=== PATIENT | male | born 1980 ===

== ENCOUNTER 2021-01-04 10:18 | Outpatient (REF) | payer BC, MEDICAID, SELFPAY | END 2021-01-04 10:19 | disposition home or self-care (01) | LOC: HO.LAB 10:18 | PROVIDERS: Visit Provider Internal Medicine | DX: Z20.822 Contact with and (suspected) exposure to COVID-19 (principal) | CPT/HCPCS: C9803; U0003; U0005 ==

== ENCOUNTER 2021-03-06 14:49 | Outpatient (REF) | payer BC, MEDICAID, SELFPAY ==
--- NOTE | ~2021-03-06 | XR_ITS ---
EXAMINATION: XR ANKLE, LEFT CLINICAL INFORMATION: Left ankle pain. COMPARISON: None TECHNIQUE: AP, lateral, and mortise views of the left ankle. FINDINGS: There is a Stieda process on the posterior talus. A well-corticated ossicle is seen between the tip of the lateral malleolus and body of the talus consistent with old injury. The bones and soft tissues are otherwise normal. No fracture. Alignment is anatomic. Joint spaces are maintained. No joint effusion. XR/XR ankle LT 2V IMPRESSION: Stieda process posterior talus. Well-corticated bone fragment between the lateral malleolus and body of the talus consistent with old injury. No acute abnormality.
--- NOTE | ~2021-03-06 | XR_ITS ---
EXAMINATION: XR LUMBOSACRAL SPINE CLINICAL INFORMATION: Dorsalis. COMPARISON: 04/16/17. CT scan of the abdomen and pelvis dated 12/12/18. TECHNIQUE: Three views of the lumbosacral spine. FINDINGS: There is stable appearance of bilateral spondylolysis at L5 with grade 1 spondylolisthesis. There is mild narrowing of the disc space at L5-S1 increased from priors. No other abnormality. Disc spaces are otherwise well-maintained. Vertebral body body heights are maintained. The paravertebral soft tissues are normal. 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 Mild disc space narrowing at L5-S1 more pronounced than seen on priors.
== END 2021-03-06 14:50 | disposition home or self-care (01) ==
LOC: HO.XRAY 14:49
PROVIDERS: PCP Internal Medicine; Visit Provider Internal Medicine
DX: M25.572 Pain in left ankle and joints of left foot (principal); M54.9 Dorsalgia, unspecified
CPT/HCPCS: 72100; 73600

== ENCOUNTER → 2021-04-11 14:36 | Outpatient (BNVA) | payer BC, MEDICAID, SELFPAY | PROVIDERS: PCP Internal Medicine; Referring Provider Internal Medicine; Visit Provider Surgery ==

== ENCOUNTER 2021-05-30 14:18 | Outpatient (REF) | payer OTHER, SELFPAY ==
[2021-05-31 04:32] LABS: Syphilis Screen Nonreactive (Nonreactive)
[2021-05-31 04:57] LABS: HBS Num1 4.11 mIU/mL (0-7.99); HBsAGNum1 0.23 S/CO (0.00-0.99); HIV AB/AG Nonreactive (Nonreactive); HIV Num 1 0.05 S/CO (0.00-0.99); Hepatitis B Surface Antigen Negative (Negative); ~HepC Num1 0.12 S/CO (0.00-0.79); ~Hepatitis B Surface Antibody NONREACTIVE (Nonreactive); ~Hepatitis C Antibody Nonreactive (Nonreactive)
[2021-05-31 05:32] LABS: HBc Num1 10.48 S/CO (0.00-0.79); HBc Num2 9.61 S/CO; Hepatitis B Core Antibody Reactive (Nonreactive)
[2021-06-01 17:11] LABS: Hepatitis B Core Antibody IgM NON-REACTIVE (NON-REACTIVE)
== END 2021-05-30 14:19 | disposition home or self-care (01) ==
LOC: HO.LAB 14:18
PROVIDERS: PCP Internal Medicine; Visit Provider Internal Medicine
DX: Z01.84 Encounter for antibody response examination (principal); Z11.4 Encounter for screening for human immunodeficiency virus [HIV]; Z11.3 Encounter for screening for infections with a predominantly sexual mode of transmission
CPT/HCPCS: 36415; 86704; 86705; 86706; 86780; 86803; 87340; 87389

== ENCOUNTER 2021-07-18 14:21 | Outpatient (REF) | payer OTHER, SELFPAY ==
[2021-07-18 15:01] LABS: Anion Gap 12 (12-20); Blood Urea Nitrogen 21 mg/dL (9-16); Calcium 9.8 mg/dL (8.4-10.2); Carbon Dioxide 30 mmol/L (22-29); Chloride 104 mmol/L (96-108); Estimated Glomerular Filt Rate > 60; Glucose Random 103 mg/dL (60-115); Potassium 4.5 mmol/L (3.3-5.1); Sodium 141 mmol/L (135-145)
[2021-07-18 15:25] LABS: TSH reflex Free T4 0.46 uIU/mL (0.32-4.0)
== END 2021-07-18 14:22 | disposition home or self-care (01) ==
LOC: HO.LAB 14:21
PROVIDERS: PCP Internal Medicine; Visit Provider Nurse Practitioner Family
DX: F32.1 Major depressive disorder, single episode, moderate (principal); F41.9 Anxiety disorder, unspecified
CPT/HCPCS: 36415; 80048; 84443

== ENCOUNTER 2023-01-09 13:51 | Outpatient (REF) | payer OTHER, SELFPAY ==
[2023-01-09 14:08] LABS: MANUAL DIFF FLAG NO
[2023-01-09 14:44] LABS: Basophils Absolute Auto 0.1 X10*3/uL (0.0-0.2); Basophils Percent Auto 0.8 % (0-2); Eosinophils Absolute Auto 0.3 X10*3/uL (0.0-0.4); Eosinophils Percent Auto 4.8 % (0-4); Hematocrit 42.8 % (42.0-52.0); Hemoglobin 15.1 g/dl (14.0-18.0); Imm Gran Abs Auto 0.02 X10*3/uL (0.00-0.03); Imm Gran Pct Auto 0.3 % (0.0-0.4); Lymphocytes Absolute Auto 1.5 X10*3/uL (1.2-4.9); Lymphocytes Percent Auto 24.6 % (20-40); Mean Corpuscular HGB Conc 35.3 g/dl (31.0-36.0); Mean Corpuscular Hemoglobin 30.9 pg (27.0-33.0); Mean Corpuscular Volume 87.7 fL (80.0-98.0); Mean Platelet Volume 10.5 fL (9.4-12.4); Monocytes Absolute Auto 0.4 X10*3/uL (0.1-1.2); Monocytes Percent Auto 7.3 % (2-11); Neutrophils Absolute Auto 3.7 x10*3/uL (2.0-8.3); Neutrophils Percent Auto 62.2 % (45-73); Platelet Count 244 X10*3/uL (160-400); Red Blood Count 4.88 X10*6/uL (4.60-5.80); Red Cell Distribution Width 11.9 % (11.0-16.0)
== END 2023-01-09 13:52 | disposition home or self-care (01) ==
LOC: HO.LAB 13:51
PROVIDERS: PCP Internal Medicine; Visit Provider Internal Medicine
DX: K92.1 Melena (principal)
CPT/HCPCS: 36415; 85025

== ENCOUNTER 2023-01-30 09:39 | Outpatient (REF) | payer OTHER, SELFPAY ==
--- NOTE | ~2023-01-30 | US_ITS ---
EXAMINATION: US ABDOMEN LIMITED CLINICAL INFORMATION: Left upper quadrant abdominal tenderness. COMPARISON: CT abdomen and pelvis without contrast dated 12/12/2018. Ultrasound abdomen limited dated 11/26/2017. TECHNIQUE: Real-time imaging of the left upper and lower quadrant abdominal viscera. FINDINGS: The spleen measures 13.8 cm in length but does not appear bulky. The left kidney appears normal. The pancreas appears normal where visualized. Multiple subcutaneous echogenic structures are seen in the left lower quadrant, the largest measuring 2.0 cm. These are slightly echogenic relative to subcutaneous fat. These correspond to the small nodular densities seen on the prior CT scan and may relate to medication injection sites and fat necrosis. US/US abdomen limited IMPRESSION: Multiple echogenic structures seen in the subcutaneous abdominal wall in the left lower quadrant measuring up to 2.0 cm. These likely reflect injection site granulomas/fat necrosis. Recommend clinical correlation with physical exam and history. No discrete abnormality in the left upper corner and to correlate with abdominal tenderness.
== END 2023-01-30 09:40 | disposition home or self-care (01) ==
LOC: HO.US 09:39
PROVIDERS: PCP Internal Medicine; Visit Provider Nurse Practitioner Family
DX: R10.812 Left upper quadrant abdominal tenderness (principal)
CPT/HCPCS: 76705

== ENCOUNTER → 2023-02-06 12:27 | Outpatient (BNVA) | payer OTHER, SELFPAY | PROVIDERS: PCP Internal Medicine; Visit Provider Internal Medicine | DX: R10.812 Left upper quadrant abdominal tenderness (principal); K62.5 Hemorrhage of anus and rectum; Z79.1 Long term (current) use of non-steroidal anti-inflammatories (NSAID) | CPT/HCPCS: 99202 ==

== ENCOUNTER 2023-03-20 14:53 | Outpatient (REF) | payer OTHER, SELFPAY ==
[2023-03-20 18:03] LABS: CT PCR NOT DETECTED (Not Detect.); NG PCR NOT DETECTED (Not Detect.)
[2023-03-23 03:48] LABS: Syphilis Screen Nonreactive (Nonreactive)
[2023-03-23 03:54] LABS: HBsAGNum1 0.37 S/CO (0.00-0.99); HIV AB/AG Nonreactive (Nonreactive); HIV Num 1 0.07 S/CO (0.00-0.99); Hepatitis B Surface Antigen Negative (Negative); ~Hepatitis A Antibody IgM Nonreactive (Nonreactive); ~Hepatitis B Surface Antibody NONREACTIVE (Nonreactive); ~Hepatitis C Antibody Nonreactive (Nonreactive)
[2023-03-23 05:14] LABS: HBc Num2 4.47 S/CO; HBc Num3 7.38 S/CO; Hepatitis B Core Antibody Reactive (Nonreactive)
[2023-03-28 10:52] LABS: Hepatitis B Core Antibody IgM NON-REACTIVE
== END 2023-03-20 14:54 | disposition home or self-care (01) ==
LOC: HO.LAB 14:53
PROVIDERS: PCP Internal Medicine; Visit Provider Internal Medicine
DX: Z11.3 Encounter for screening for infections with a predominantly sexual mode of transmission (principal)
CPT/HCPCS: 0353U; 86704; 86705; 86706; 86709; 86780; 86803; 87340; 87389

== ENCOUNTER 2023-04-21 17:18 | Outpatient (AMB) | payer OTHER, SELFPAY ==
[2023-04-21 17:23] VITALS: BP 118/72; BMI 37.4
--- NOTE | 2023-04-21 17:23 | A.OFFPC_ITS ---
Vital Signs 04/21/23 17:23 Height 5 ft 5 in Weight 225 lb BMI 37.4 BP 118/72 Blood Pressure Location Lt brachial Position Sitting Intake Visit Reasons: back pain Intake Note: Patient here for a follow up back pain, left foot pain, lump on left side between neck and shoulder blade Ink Blender Required: No Accompanied by: Self / Same As Patient Allergies No Known Allergies [No Known Allergies*] Allergy (Verified 04/21/23 17:33) Medication List - Last Reconciled 04/21/23 by Lavonne Terry MD buspirone 7.5 mg PO BID Tobacco use date assessed: 01/16/23 Dental Screening Dental Screen Date: 04/21/23 Did you have a dental visit in the last 12 months?: Yes Did you have a dental problem in the last 6 months where you did not have access to dental care?: No Was dental information given to patient?: Patient has dentist HPI HPI Comments History of Present Illness Details This is a 42-year-old male that complains of bilateral shoulder pain with full active range of motion, left supraclavicular mass that has been present for about a year. No fever or night sweats. Also has chronic low back pain and left ankle pain. Will be referred to pain management. [facility] Medical History Back pain Left ankle pain Screen for STD (sexually transmitted disease) Surgical History History of appendectomy History of excision of mass History of left inguinal hernia repair (02/03/19) History of nasal septoplasty History of open reduction and internal fixation (ORIF) procedure Family History Mother No problems noted. Father No problems noted. 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 Prince Cornell, Katie May, Valdo Barrow and colleagues, with an educational den[place] from [employer]. Review of Systems Const All systems reviewed & are unremarkable except as noted in HPI and below Eyes Reports no additional complaints, Denies change in vision and Denies other visual disturbances Card Denies chest pain at rest, Denies chest pain with activity, Denies edema, Denies irregular heart rhythm, Denies claudication, Denies dyspnea, Denies dyspnea on exertion, Denies orthopnea, Denies paroxysmal nocturnal dyspnea and Denies slow heart rate Resp Denies cough, Denies dyspnea and Denies dyspnea on exertion GI Denies abdominal pain, Denies change in bowel habits, Denies excessive flatus, Denies nausea and Denies vomiting Denies urinary hesitancy, Denies urinary incontinence and Denies urinary urgency Musc Denies abnormal gait, Reports back pain, Denies atrophy, Denies deformity and Denies limited range of motion Skin/Breast Denies bleeding lesions, Denies changing lesions and Denies rash Neuro Denies abnormal gait and Denies lack of coordination Physical exam (Primary Care) Vital Signs: Last Vital Signs BP 118/72 04/21/23 17:23 BMI result Body Mass Index 37.4 Tobacco/Smoking Status: Tobacco use Status Tobacco use date assessed 01/16/23 04/21/23 17:31 Patient Tobacco Use Status Former Tobacco user (two 04/21/23 17:31 months ago) Tobacco use type Cigarette 04/21/23 17:31 e-Cigarette/Vaping Use Never Used 04/21/23 17:31 Thrive Assessment: Date of Thrive Assessment Date Thrive assessed 01/16/23 04/21/23 17:31 Eyes General: appearance normal, both eyes and all related structures Eyelids: Yes eyelids normal Conjunctivae: conjunctivae normal Neck Neck: Yes normal visual inspection and Yes supple Resp Effort & Inspection: normal respiratory effort Auscultation: clear to auscultation bilaterally Cardio Jugular venous distension: no JVD Rate: regular rate Rhythm: regular rhythm Heart sounds: S1 normal heart sound present and S2 normal heart sound present Extrem General: Yes full ROM Assessment and Plan Assessment & Plan (1) Polyarthralgia: Code(s): M25.50 - Pain in unspecified joint Plan: XRs ordered. Referred to pain management Orders: Orders XR ankle LT 2V Today M25.572 - Pain in left ankle and joints of left foot XR clavicle LT Today M89.8X1 - Other specified disorders of bone, shoulder XR shoulder LT 1V Today M25.512 - Pain in left shoulder XR shoulder RT min 2V Today M25.511 - Pain in right shoulder US soft tiss head and/or neck Today R22.1 - Localized swelling, mass and lump, neck Referrals Pain Management Referral M25.511 - Pain in right shoulder, M25.512 - Pain in left shoulder, M25.571 - Pain in right ankle and joints of right foot, M25.572 - Pain in left ankle and joints of left foot, M89.8X1 - Other specified disorders of bone, shoulder Coding Level of Care Code Est Pt Level 3 (77257) Diagnoses Polyarthralgia M25.50 Time Spent (min) 18
== END 2023-04-21 17:45 | disposition home or self-care (01) ==
PROVIDERS: PCP Internal Medicine; Visit Provider Internal Medicine
DX: M25.50 Pain in unspecified joint (principal)
CPT/HCPCS: 99213

== ENCOUNTER 2023-04-24 15:11 | Outpatient (REF) | payer OTHER, SELFPAY ==
--- NOTE | ~2023-04-24 | XR_ITS ---
EXAMINATION: XR ANKLE, LEFT CLINICAL INFORMATION: Left ankle pain. COMPARISON: None available. TECHNIQUE: AP, lateral, and mortise views of the left ankle. FINDINGS: No acute fracture identified. Alignment is anatomic. No erosions. Joint spaces appear maintained. Soft tissues appear unremarkable. XR/XR ankle LT 2V IMPRESSION: Normal plain film examination of the left ankle.
--- NOTE | ~2023-04-24 | XR_ITS ---
EXAMINATION: XR CLAVICLE, LEFT CLINICAL INFORMATION: Pain. COMPARISON: None available. TECHNIQUE: Two views of the left clavicle. FINDINGS: The clavicle appears intact. The bones and soft tissues appear unremarkable. No fracture identified. Acromioclavicular joint alignment is anatomic. XR/XR clavicle LT IMPRESSION: Normal plain film examination of the left clavicle.
--- NOTE | ~2023-04-24 | XR_ITS ---
EXAMINATION: XR SHOULDER, RIGHT CLINICAL INFORMATION: Right shoulder pain. COMPARISON: None available. TECHNIQUE: AP external rotation, Grashey, scapular Y, and axillary views of the right shoulder. FINDINGS: The bones and soft tissues appear unremarkable. No fracture appreciated. Glenohumeral and acromioclavicular alignment is anatomic with normal joint space. No abnormal soft tissue calcification identified. XR/XR shoulder RT min 2V IMPRESSION: Normal plain film examination of the right shoulder.
--- NOTE | ~2023-04-24 | XR_ITS ---
EXAMINATION: XR SHOULDER, LEFT CLINICAL INFORMATION: Left shoulder pain. COMPARISON: None available. TECHNIQUE: AP external rotation, Grashey, scapular Y, and axillary views of the left shoulder. FINDINGS: The bones and soft tissues appear unremarkable. No fracture appreciated. Glenohumeral and acromioclavicular alignment is anatomic with normal joint space. No abnormal soft tissue calcification identified. XR/XR shoulder LT min 2V IMPRESSION: Normal plain film examination of the left shoulder.
== END 2023-04-24 15:12 | disposition home or self-care (01) ==
LOC: HO.XRAY 15:11
PROVIDERS: PCP Internal Medicine; Visit Provider Internal Medicine
DX: M89.8X1 Other specified disorders of bone, shoulder (principal); M25.572 Pain in left ankle and joints of left foot; M25.511 Pain in right shoulder; M25.512 Pain in left shoulder
CPT/HCPCS: 73000; 73030; 73600

== ENCOUNTER 2023-05-29 14:55 | Outpatient (AMB) | payer OTHER, SELFPAY ==
--- NOTE | 2023-05-29 15:07 | MHC.OFFVIS ---
Intake Vital Signs 05/29/23 15:19 Height 5 ft 5 in Weight 224 lb BMI 37.3 BP 124/56 L Blood Pressure Location Lt brachial Position Sitting Respiration 18 Pulse 72 Pulse Source Pulse Oximeter Pulse Oximetry (%) 96 Oxygen Delivery Method Room Air Intake Visit Reasons: Pain in both shoulders Allergies No Known Allergies [No Known Allergies*] Allergy (Verified 05/29/23 15:00) HPI HPI Comments History of Present Illness Details Zeyad is a very pleasant 42-year-old male who presents to the office today for evaluation and management of his chronic left shoulder pain. Patient reports he has been suffering with left shoulder pain for many years. He has tried ibuprofen with minimal relief. He has never been to physical therapy for this pain. Patient describes pain in left upper back and left shoulder. Pain worse with movement and palpation. Patient denies radiation of the pain down the arm or up into the head. Pain is constant, rated today as a 4/10. Patient used to be prescribed tramadol from his primary care doctor but that was discontinued approximately 4 months ago after he was started on medication for depression due to increased risk for serotonin syndrome with the combination. Since then he has not been prescribed medication for his chronic pains. He also complains of left ankle pain that he has a pending appointment with Orthopedics for evaluation and management. In terms of muscle damage continued described as aching, spasming, hot, burning, stabbing, sharp, shooting, throbbing and cramping. Patient reports that the pain is negatively impacting his general activity. Patient denies current use of alcohol, tobacco or illicit substances. Patient denies implantable devices, pacemaker or defibrillator. [facility] Medical History Back pain Left ankle pain Screen for STD (sexually transmitted disease) Surgical History History of appendectomy History of excision of mass History of left inguinal hernia repair (02/03/19) History of nasal septoplasty History of open reduction and internal fixation (ORIF) procedure Family History Mother No problems noted. Father No problems noted. 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 Answers questions appropriately. Fully engaged in examination. Skin: warm, dry, intact HEENT: Normocephalic. Hearing intact. Cardiac: External chest normal in appearance. Respiratory: No cough, audible wheezing or stridor. Abdomen: without gross distension. MS: Left shoulder: full active and passive ROM. minimally tender over left proximal biceps tendon Moderate tenderness throughout upper/middle trapezius that reproduces patient's current pain Neurological: Oriented to person, place, time and situation. Thought process intact. No gait abnormalities appreciated. Psychiatric: Appropriate mood and affect. Good judgment and insight. Results Reviewed Results Reviewed: 04/24/2023 XR/XR shoulder LT min 2V AP external rotation, Grashey, scapular Y, and axillary views of the left shoulder. FINDINGS: The bones and soft tissues appear unremarkable. No fracture appreciated. Glenohumeral and acromioclavicular alignment is anatomic with normal joint space. No abnormal soft tissue calcification identified. IMPRESSION: Normal plain film examination of the left shoulder. Assessment & Plan Assessment & Plan (1) Left shoulder pain: Code(s): M25.512 - Pain in left shoulder Qualifiers: Chronicity: chronic Qualified Code(s): M25.512 - Pain in left shoulder; G89.29 - Other chronic pain (2) Trapezius muscle strain: Code(s): S46.819A - Strain of other muscles, fascia and tendons at shoulder and upper arm level, unspecified arm, initial encounter Qualifiers: Encounter type: initial encounter Laterality: left Qualified Code(s): S46.812A - Strain of other muscles, fascia and tendons at shoulder and upper arm level, left arm, initial encounter (3) Myofascial muscle pain: Code(s): M79.18 - Myalgia, other site Plan Zeyad is a very pleasant 42 year old male who presented to the office today for evaluation and management of his chronic left shoulder/upper back pain. History, physical exam and provocative testing most consistent with left trapezius muscle strain and myofascial upper back pain. Order for PT eval and treat placed. C/W Ibuprofen as needed Will try baclofen 5mg po TID as needed for spasm. patient instructed on use. 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 Patient will follow up in the office after PT. Discussed options for treatment including diagnostic interventional testing,steroid injections, peripheral nerve stimulation with Sprint, RFA and more permanent neuromodulation. If patient's pain unchanged with muscle relaxer and PT will plan for ultrasound guided diagnostic left suprascapular nerve block with local anesthetic. All questions and concerns have been answered and patient agrees with the plan. Follow up after PT, sooner if needed. Orders: Orders PT Evaluation and Treatment Today M25.512 - Pain in left shoulder, S46.819A - Strain of other muscles, fascia and tendons at shoulder and upper arm level, unspecified arm, initial encounter Medications: New baclofen 5 mg PO TID PRN 60 tabs 0RF muscle spasm Coding Level of Care Code New Pt Level 4 (18454) Diagnoses Chronic left shoulder pain M25.512; G89.29 Chronicity: chronic Strain of left trapezius muscle, initial encounter S46.812A Encounter type: initial encounter Laterality: left Myofascial muscle pain M79.18
[2023-05-29 15:19] VITALS: BP 124/56; PULSE 72; RESP 18; O2SAT 96; BMI 37.3
== END 2023-05-29 15:32 | disposition home or self-care (01) ==
PROVIDERS: PCP Internal Medicine; Visit Provider Registered Nurse Emergency
DX: G89.29 Other chronic pain (principal); M25.512 Pain in left shoulder; S46.812A Strain of other muscles, fascia and tendons at shoulder and upper arm level, left arm, initial encounter; M79.18 Myalgia, other site
CPT/HCPCS: 99204

== ENCOUNTER → 2023-05-29 14:55 | Outpatient (BNVA) | payer OTHER, SELFPAY | PROVIDERS: PCP Internal Medicine; Visit Provider Registered Nurse Emergency ==

== ENCOUNTER 2023-06-12 11:00 | Outpatient (RCR) | payer OTHER, SELFPAY ==
--- NOTE | 2023-04-10 16:28 | MHC.PT.EP ---
[facility] [place] Office [place] Office [place] Office [address] [phone] F: [phone] F: [phone] F: [phone] F: [phone] Physical Therapy Plan of Care Date of Evaluation: Date of Surgery: NA Diagnosis: DORSALGIA. Pt REPORTS BACK NOT BOTHERING HIM. L ANKLE IS Assessment: Pt IS 42 YO M REFERRED TO PT FROM [facility] WITH DORSALGIA. Pt REPORTS HAVING L ANKLE ISSUES. HE REPORTS HIS BACK IS HURTING BUT IS HAVING MORE ISSUES L ANKLE. REPORTS 3 YR HX OF L ANKLE ISSUES. REPORTS INSIDIOUS ONSET. REPORTS SOMETIMES L ANKLE GETS SWOLLEN. PRESENTS TO PT WITH C/O L ANKLE PAIN BUT NOT LBP. HAS +XRAY REPORT FOR EXTENDED LAT TUBERCLE OF THE POST PROCESS OF THE TALUS. SLIGHT DECREASED END RANGES L ANKLE ROM. 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 (NO TREATMENT PERFORMED TODAY) Frequency and Duration: The patient will be seen 1X/WK X 4 WKS Short Term Goals: 1. INCREASED AWARENESS ANKLE CARE 2. I HEP WITH DC EX PLAN 3. 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 DECREASED ANKLE SWELLING REPORTED 2. DECREASED ANKLE PAIN AT LEAST 50% WITH ADLS Treatment Plan: Modalities to reduce pain, spasms and effusion. Manual therapy to restore motion and function. Therapeutic exercise to improve strength and flexibility. Neuromuscular re-education for posture and balance. Therapeutic activities to return to functional activities of daily living. Electronically signed by: ANAHY SOLOMON PT Please sign and return to therapist. Thank you for your referral.
--- NOTE | 2023-06-19 12:27 | MHC.PT.DC ---
[facility] [place] Office [place] Office [place] Office [address] [place] [address] [phone] F: [phone] F: [phone] F: [phone] F: [phone] Physical Therapy Discharge Report Diagnosis: L lateral ankle pain Date of Surgery: NA Date of Evaluation: 04/10/23 Date of Discharge: 06/19/23 Treatments to Date: 7 Cancellations to Date: No Shows to Date: Discharge Status: Achieved Goals Improved Function Independent with HEP Discharge Summary: HAS MET PT GOALS, HAS HOME PROG Electronically signed by: ANAHY SOLOMON PT Please sign and return to therapist. Thank you for your referral.
== END 2023-06-19 13:03 | disposition home or self-care (01) ==
LOC: HO.PT 11:00
PROVIDERS: PCP Internal Medicine; Visit Provider Nurse Practitioner Family
DX: M54.6 Pain in thoracic spine (principal); M25.571 Pain in right ankle and joints of right foot; M25.572 Pain in left ankle and joints of left foot
CPT/HCPCS: 97110; 97140; 97161; 97530; 97535

== ENCOUNTER 2023-08-27 10:30 | Outpatient (AMB) | payer SELFPAY ==
--- NOTE | 2023-08-27 10:51 | A.OFFVIS_ITS ---
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 No injury he can recall. Describes his injury. States his pain increase with prolong walking. Patient has tried P.T, massages and braces with no improvement. States he was told by his PCP this o.A. Allergies No Known Allergies [No Known Allergies*] Allergy (Verified 08/27/23 10:55) Medication List - Last Reconciled 08/27/23 by Marcela Ly MD baclofen 5 mg PO TID PRN ibuprofen 600 mg PO Q8H PRN 30 days HPI HPI Comments History of Present Illness Details 10 years ago, while still in [place], denies inciting injuries. Pain on lateral malleoli. Swells sometimes. Denies numbness on toes. ROS - other joint pain - left shoulder pain, shows me a left sided lump on left upper chest. No back pain. No hand pain. No eye symptoms. Treatment done so far: has tried tape, brace in the past Ibuprofen PT - last 2 months ago PFSH Medical History Back pain Left ankle pain Screen for STD (sexually transmitted disease) Surgical History History of appendectomy History of excision of mass History of left inguinal hernia repair (02/03/19) History of nasal septoplasty History of open reduction and internal fixation (ORIF) procedure Family History Mother No problems noted. Father No problems noted. 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 Patient was appropriately conversant and oriented. Good historian. MSK: No point tendernerss over left lateral malleolus but says the pain is deep in there. No tenderness over achilles or plantar fascia. No ankle instability. No leg swelling. No foot drop. Neurological: Neurologic examination of the upper and lower extremities was nonfocal with intact sensation, muscle stretch reflexes and without focal motor deficits . Marie?s negative bilaterally. Babinski was down going bilaterally. Clonus was negative. Gait is non-antalgic without loss of balance. Patient was able to perform heel walk and toe walk. Results Reviewed Results Reviewed: Date of Service: 04/24/23 Procedure(s): XR ankle LT 2V Accession Number(s): [id number] cc: Lavonne Farr MD~ EXAMINATION: XR ANKLE, LEFT CLINICAL INFORMATION: Left ankle pain.? COMPARISON: None available.? TECHNIQUE: AP, lateral, and mortise views of the left ankle. FINDINGS: No acute fracture identified. Alignment is anatomic. No erosions. Joint spaces appear maintained. Soft tissues appear unremarkable.? XR/XR ankle LT 2V IMPRESSION: Normal plain film examination of the left ankle. Date of Service: 03/06/21 Procedure(s): XR lumbar spine 2-3V Accession Number(s): [id number] cc: Lavonne Farr MD~ EXAMINATION: XR LUMBOSACRAL SPINE CLINICAL INFORMATION: Dorsalis. COMPARISON: 04/16/17. CT scan of the abdomen and pelvis dated 12/12/18. TECHNIQUE: Three views of the lumbosacral spine. FINDINGS: There is stable appearance of bilateral spondylolysis at L5 with grade 1 spondylolisthesis. There is mild narrowing of the disc space at L5-S1 increased from priors. No other abnormality. Disc spaces are otherwise well-maintained. Vertebral body body heights are maintained. The paravertebral soft tissues are normal. 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 Mild disc space narrowing at L5-S1 more pronounced than seen on priors. Date of Service: 07/29/23 Procedure(s): XR shoulder RT min 2V Accession Number(s): [id number] cc: Stephany Monroe PA-C~ I reviewed records from the following: Pain management-follows for left shoulder pain PCP-seen for joint pain Assessment & Plan Assessment & Plan (1) Left ankle sprain: Code(s): S93.402A - Sprain of unspecified ligament of left ankle, initial encounter Qualifiers: Encounter type: initial encounter Involved ligament of ankle: anterior talofibular ligament Qualified Code(s): S93.492A - Sprain of other ligament of left ankle, initial encounter (2) Lipoma of left shoulder: Code(s): D17.22 - Benign lipomatous neoplasm of skin and subcutaneous tissue of left arm Plan Suspect chronic ankle sprain. Patient had undergone adequate conservative management including [PT] without improvement of condition. It would be reasonable to obtain further imaging such as MRI. An MRI would help rule out any serious condition, guide treatment and assess prognosis for recovery. In the meantime we will give him a night splint. Instructions given. On a separate issue, noticed lipoma on left upper chest near clavicle. On review of EMR, he has seen Dr. Grande for diffuse lipoma back in 2020. We will refer back to Dr. Grande/general surgery. Assessment and plan discussed with patient, and patient was agreeable. All questions were answered thoroughly. Follow-up after MRI of left ankle Marcela Ly MD, AKIRA Board Certified, [place] [employer] and Rehabilitation (ABPMR) Board Certified, [place] [employer] Electro[employer] (ABEM) Orders: Orders MR ankle LT wo con Today S93.402A - Sprain of unspecified ligament of left ankle, initial encounter Referrals General Surgery Referral D17.22 - Benign lipomatous neoplasm of skin and sub cutaneous tissue of left arm Coding Level of Care Code New Pt Level 4 (05852) Diagnoses Sprain of anterior talofibular ligament of left ankle, initial encounter S93.492A Encounter type: initial encounter Involved ligament of ankle: anterior talofibular ligament Lipoma of left shoulder D17.22
[2023-08-27 10:52] VITALS: BMI 37.3
== END 2023-08-27 11:12 | disposition home or self-care (01) ==
PROVIDERS: PCP Internal Medicine; Visit Provider Physical Medicine & Rehabilitation
DX: S93.492A Sprain of other ligament of left ankle, initial encounter (principal); D17.22 Benign lipomatous neoplasm of skin and subcutaneous tissue of left arm
CPT/HCPCS: 99204

== ENCOUNTER → 2023-08-27 10:30 | Outpatient (BNVA) | payer OTHER, SELFPAY | PROVIDERS: PCP Internal Medicine; Visit Provider Physical Medicine & Rehabilitation ==

== ENCOUNTER → 2023-09-18 09:49 | Outpatient (BNVA) | payer SELFPAY | PROVIDERS: PCP Internal Medicine; Visit Provider Surgery ==

== ENCOUNTER 2023-12-29 16:03 | Outpatient (AMB) | payer OTHER, SELFPAY ==
--- NOTE | 2023-12-29 16:05 | A.OFFPC_ITS ---
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 by: Self / Same As Patient Allergies No Known Allergies [No Known Allergies*] Allergy (Verified 12/29/23 16:24) Medication List - Last Reconciled 12/29/23 by Lavonne Terry MD ibuprofen 600 mg PO Q8H PRN 30 days pantoprazole 40 mg PO DAILY Tobacco use date assessed: 12/29/23 Dental Screening Dental Screen Date: 12/29/23 Did you have a dental visit in the last 12 months?: No Did you have a dental problem in the last 6 months where you did not have access to dental care?: No Was dental information given to patient?: Patient has dentist HPI HPI Comments History of Present Illness Details This is a 43-year-old male that comes for his physical exam. Denies any chest pain or shortness of breath. No fever or cough. [facility] Medical History (Updated 12/29/23 @ 19:42 by Lavonne Terry MD) History of substance abuse Moderate depressive disorder Screen for STD (sexually transmitted disease) Left ankle pain Back pain Surgical History History of left inguinal hernia repair (02/03/19) History of nasal septoplasty History of excision of mass History of appendectomy History of open reduction and internal fixation (ORIF) procedure Family History (Updated 12/29/23 @ 16:33 by Lavonne Terry MD) Mother No problems noted. Father Prostate cancer Paternal Grandmother Pancreatic cancer Maternal Grandmother Breast cancer Social History Housing: Apartment Alcohol intake: former Patient Tobacco Use Status: Former Tobacco user Quit Date: two months Tobacco use type: Cigarette Cigarettes Per Day: 5 Years Smoked: 10 year e-Cigarette/Vaping Use: Never Used Second Hand Smoke Exposure: Yes service: No Current occupational status: employed Current occupational exposures/hazards: No Cognitive needs: No Hearing needs: No Vision needs: No Questionnaire PHQ-9 Over the last 2 weeks, how often have you been bothered by any of the following problems? 1. Little interest or pleasure in doing things: not at all 2. Feeling down, depressed, or hopeless: not at all 3. Trouble falling or staying asleep, or sleeping too much: not at all 4. Feeling tired or having little energy: not at all 5. Poor appetite or overeating: not at all 6. Feeling bad about yourself - or that you are a failure or have let yourself or your family down: not at all 7. Trouble concentrating on things, such as reading the newspaper or watching television: not at all 8. Moving or speaking so slowly that other people could have noticed. Or the opposite - being so fidgety or restless that you have been moving around a lot more than usual: not at all 9. Thoughts that you would be better off or of hurting yourself in some way: not at all Total score: 0 Depression Screening Interpretation: Negative Depression Screening Done: Yes 19925 - PHQ-9 Billing: Yes Source: Developed by Drs. Prince Cornell, Katie May, Valdo Barrow and colleagues, with an educational denver from [employer] Thrive Questionnaire Date Thrive assessed: 12/29/23 I am a: Patient What is your living situation today?: I have a steady place to live Within the past 12 months, did the food you bought not last and you didn't have the money to get more?: Never true Within the past 12 months, did you worry whether your food would run out before you got money to buy more?: Never true Do you have trouble paying for medicines?: No Do you have trouble getting transportation to medical appointments?: No Do you have trouble paying your heating and electricity bill?: No Do you have trouble taking care of your child, family member or friend?: No Do you have trouble with day-to-day activities such as bathing, preparing meals, shopping, managing finances, etc.?: No Are you currently unemployed and looking for a job?: No Are you interested in more education?: No Please select the resources that you would like help with: None Currently or been in a relationship where the following occur: no concerns reported THRIVE Score: 0 AUDIT C Alcohol Use Questionnaire (AUDIT-C) 1. How often do you have a drink containing alcohol?: Never Total Score: 0 KEELY-7 AMB Questionnaire KEELY-7 Date KEELY - 7 assessed: 12/29/23 Feeling nervous, anxious, or on edge: 0 = Not at all Not being able to stop or control worryin = Not at all Worrying too much about different things: 0 = Not at all Trouble relaxin = Not at all Being so restless that it is hard to sit still: 0 = Not at all Becoming easily annoyed or irritable: 0 = Not at all Feeling afraid as if something awful might happen: 0 = Not at all Total KEELY-7 score (0-4 normal; 5-9 mild; 10-14 moderate; 15-21 severe): 0 Source: Developed by Drs. Prince Cornell, Katie May, Valdo Barrow and colleagues, with an educational denver from [employer] KEELY-7 Assessment Billing KEELY-7 Assessment Tool: KEELY-7 Assessment 82708 Review of Systems Const All systems reviewed & are unremarkable except as noted in HPI and below Eyes Reports no additional complaints, Denies change in vision and Denies other visual disturbances Card Denies chest pain at rest, Denies chest pain with activity, Denies edema, Denies irregular heart rhythm, Denies claudication, Denies dyspnea, Denies dyspnea on exertion, Denies orthopnea, Denies paroxysmal nocturnal dyspnea and Denies slow heart rate Resp Denies cough, Denies dyspnea and Denies dyspnea on exertion GI Denies abdominal pain, Denies change in bowel habits, Denies excessive flatus, Denies nausea and Denies vomiting Denies urinary hesitancy, Denies urinary incontinence and Denies urinary urgency Physical exam (Primary Care) Vital Signs: Last Vital Signs BP 126/80 12/29/23 16:06 BMI result Body Mass Index 32.6 Tobacco/Smoking Status: Tobacco use Status Tobacco use date assessed 12/29/23 12/29/23 16:14 Patient Tobacco Use Status Former Tobacco user 12/29/23 16:14 Tobacco use type Cigarette 12/29/23 16:14 e-Cigarette/Vaping Use Never Used 12/29/23 16:14 PHQ-9: PHQ-9 Score PHQ-9: Total score 0 12/29/23 16:33 Depression Screening Interpretation: Negative Thrive Assessment: Date of Thrive Assessment Date Thrive assessed 12/29/23 12/29/23 16:14 Currently or been in a relationship where the following occur: no concerns reported Const Orientation/consciousness: patient oriented x3 [facility] Head: Yes normal to inspection, Yes normocephalic and Yes atraumatic Ears: external ears normal Eyes General: appearance normal, both eyes and all related structures Eyelids: Yes eyelids normal Conjunctivae: conjunctivae normal Neck Neck: Yes normal visual inspection and Yes supple Resp Effort & Inspection: normal respiratory effort Auscultation: clear to auscultation bilaterally Cardio Jugular venous distension: no JVD Rate: regular rate Rhythm: regular rhythm Heart sounds: S1 normal heart sound present and S2 normal heart sound present GI Inspection: Yes normal to inspection Palpation (GI): Soft to palpation and nontender Auscultation: normal bowel sounds Skin General skin exam: no rashes or lesions noted Neuro General: patient oriented x3 and no focal motor deficits Extrem General: Yes full ROM Psych Appearance: grossly normal Assessment and Plan Assessment & Plan (1) Physical exam: Code(s): Z00.00 - Encounter for general adult medical examination without abnormal findings Plan: Repeat in a year. Coding Level of Care Code Est Pt Prev Care 40-64y(97600) Diagnoses Physical exam Z00.00 Additional Codes KEELY-7 Assessment Billing - KEELY-7 Assessment Tool: KEELY-7 Assessment 05883 ([id number]) Time Spent (min) 30
[2023-12-29 16:06] VITALS: BP 126/80; BMI 32.6
== END 2023-12-29 16:45 | disposition home or self-care (01) ==
PROVIDERS: PCP Internal Medicine; Visit Provider Internal Medicine
DX: Z00.00 Encounter for general adult medical examination without abnormal findings (principal)
CPT/HCPCS: 99396

== ENCOUNTER 2024-04-26 14:53 | Outpatient (AMB) | payer OTHER, SELFPAY ==
--- NOTE | 2024-04-26 15:03 | MHC.PC.OV ---
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 Went to ER due to this matter April 17 but they were focus on he has abdominal pain in which was another ER visit last month. CT of abdomen and pelvis was done showing possible esophagitis. He does have a long history of chronic GERD for over 5 years and will see Gastroenterology this month. He seems very anxious about having cancer due to weight loss. He also complains of urinary retention and a left flank pain. Will be referred to Urology. Unable to do a urine sample today. Also has a clavicle enlargement on the left side that bothers him. [facility] Medical History (Updated 04/26/24 @ 20:36 by Lavonne Terry MD) Moderate depressive disorder History of substance abuse Screen for STD (sexually transmitted disease) Left ankle pain Back pain Surgical History History of left inguinal hernia repair (02/03/19) History of nasal septoplasty History of excision of mass History of appendectomy History of open reduction and internal fixation (ORIF) procedure Family History Mother No problems noted. Father Prostate cancer Paternal Grandmother Pancreatic cancer Maternal Grandmother Breast cancer Social History Housing: Apartment Alcohol intake: former Patient Tobacco Use Status: Former Tobacco user Tobacco use type: Cigarette Cigarettes Per Day: 5 Years Smoked: 10 year Packs per year/per ci.00 e-Cigarette/Vaping Use: Never Used Second Hand Smoke Exposure: Yes service: No Current occupational status: employed Current occupational exposures/hazards: No Cognitive needs: No Hearing needs: No Vision needs: No Questionnaire Thrive Questionnaire Date Thrive assessed: 12/29/23 KEELY-7 AMB Questionnaire KEELY-7 Date KEELY - 7 assessed: 12/29/23 Source: Developed by Drs. Prince Cornell, Katie May, Valdo Barrow and colleagues, with an educational denver from [employer]. Review of Systems Const All systems reviewed & are unremarkable except as noted in HPI and below Card Denies chest pain at rest, Denies chest pain with activity, Denies edema, Denies irregular heart rhythm, Denies claudication, Denies dyspnea, Denies dyspnea on exertion, Denies orthopnea, Denies paroxysmal nocturnal dyspnea and Denies slow heart rate Resp Denies cough, Denies dyspnea and Denies dyspnea on exertion GI Denies abdominal pain, Denies change in bowel habits, Denies excessive flatus, Denies nausea and Denies vomiting Denies urinary hesitancy, Denies urinary incontinence and Denies urinary urgency Musc Denies atrophy, Denies deformity and Denies limited range of motion Neuro Denies confusion Psych Denies confusion Physical exam (Primary Care) Vital Signs: Last Vital Signs BP 132/82 04/26/24 15:04 BMI result Body Mass Index 30.4 Tobacco/Smoking Status: Tobacco use Status Tobacco use date assessed 12/29/23 04/26/24 15:19 Patient Tobacco Use Status Former Tobacco user 04/26/24 15:19 Tobacco use type Cigarette 04/26/24 15:19 e-Cigarette/Vaping Use Never Used 04/26/24 15:19 Thrive Assessment: Date of Thrive Assessment Date Thrive assessed 12/29/23 04/26/24 15:19 Const General: No confusion Orientation/consciousness: patient oriented x3 and No confusion Resp Effort & Inspection: normal respiratory effort Auscultation: clear to auscultation bilaterally Cardio Jugular venous distension: no JVD Rate: regular rate Rhythm: regular rhythm Heart sounds: S1 normal heart sound present and S2 normal heart sound present GI Inspection: Yes normal to inspection Palpation (GI): Soft to palpation and nontender Auscultation: normal bowel sounds Neuro General: patient oriented x3, no focal motor deficits and No confusion Extrem General: Yes full ROM Assessment and Plan Assessment & Plan (1) Clavicle enlargement: Code(s): M89.319 - Hypertrophy of bone, unspecified shoulder Plan: Ultrasound ordered. (2) Urinary retention: Code(s): R33.9 - Retention of urine, unspecified Plan: Referred to urology. (3) Tremors of nervous system: Code(s): R25.1 - Tremor, unspecified Plan: MRI of the brain ordered. (4) Epigastric pain: Code(s): R10.13 - Epigastric pain Plan: Upper GI series ordered. (5) Moderate depressive disorder: Code(s): F32.1 - Major depressive disorder, single episode, moderate Plan: Continue sertraline. Follow-up with psychiatry. Orders: Orders [place] upper GI series Today R10.13 - Epigastric pain Magnesium Today R25.2 - Cramp and spasm MR head/brain wo con Today R25.1 - Tremor, unspecified Complete Blood Count Auto Diff Today D64.9 - Anemia, unspecified US extremity nonvascular carreon Today M89.319 - Hypertrophy of bone, unspecified shoulder Thyroid Stimulating Hormone Today R63.4 - Abnormal weight loss PSA,Total (Free>4and<10) Today Z12.5 - Encounter for screening for malignant neoplasm of prostate Comprehensive Met. Panel Today R33.9 - Retention of urine, unspecified UA CC w/rflx Micro + Cult Today R30.0 - Dysuria Referrals Urology Referral R33.9 - Retention of urine, unspecified Coding Level of Care Code Est Pt Level 4 (66502) Complex EM visit Add On G2211 Diagnoses Clavicle enlargement M89.319 Urinary retention R33.9 Tremors of nervous system R25.1 Epigastric pain R10.13 Moderate depressive disorder F32.1 Time Spent (min) 24
[2024-04-26 15:04] VITALS: BP 132/82; BMI 30.4
== END 2024-04-26 15:58 | disposition home or self-care (01) ==
PROVIDERS: PCP Internal Medicine; Visit Provider Internal Medicine
DX: M89.319 Hypertrophy of bone, unspecified shoulder (principal); F32.1 Major depressive disorder, single episode, moderate; R33.9 Retention of urine, unspecified; R25.1 Tremor, unspecified; R10.13 Epigastric pain
CPT/HCPCS: 99214; G2211

== ENCOUNTER 2024-05-16 14:33 | Outpatient (AMB) | payer OTHER, SELFPAY ==
--- NOTE | 2024-05-16 14:37 | MHC.OFFVIS ---
Vital Signs 05/16/24 14:40 Height 5 ft 5 in Weight 185 lb 3.013 oz BMI 30.8 BP 131/68 Blood Pressure Location Lt brachial Position Sitting Pulse 60 Intake Visit Reasons: follow up Intake Note: Zeyad presents in the office as a follow up. CC: He states that he is having problems with his intestines and issues with his constipation. He states that he is having issues with his stomach and problems with swallowing his food. Search Developer Required: Yes Search Developer Name: [id number] Cassidy Allergies No Known Allergies [No Known Allergies*] Allergy (Verified 06/17/24 10:15) HPI Comments Details: 42y.o M here for rectal bleeding x 1 year intermittently. Pt seen with the help of conference interpreter. Reports noticing scant amount of fresh blood on wiping after having a BM. The BM itself is brown, not hard, sometimes has to strain. 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 Takes NSAIDs diclofenac once daily and takes pantoprazole with it. No fam hx of CRC or IBD. Pt also mentions heartburn and left sided burning abdominal pain most of the days of the week associated with nausea, pain worse when he does NOT eat. No vomiting, hematemesis, melena. NSAID use as above. Former smoker, quit 2 years ago. No etOH use. 05/16/24: Lost to follow up last year. Seen with an motor vehicle parts interpreter today. Reports difficulty swallowing. Feels as if food is stuck in his esophagus. Has been having on and off difficulty for almost a year but reports significant worsening since a month. More issue with solids and has to saba with fluids. Feels as if gets stuck in upper chest. No changes in last months. Reports unintentional weight loss of around 15 lbs since past year. Pt also reports father was recently diagnosed with colon polyps but they were benign. Confirmed with him over the phone. Pt reports fam hx of colorectal ca in mat grandmother. [facility] Medical History Moderate depressive disorder History of substance abuse Screen for STD (sexually transmitted disease) Left ankle pain Back pain Surgical History History of left inguinal hernia repair (02/03/19) History of nasal septoplasty History of excision of mass History of appendectomy History of open reduction and internal fixation (ORIF) procedure Family History Mother No problems noted. Father Prostate cancer Diverticula of colon Paternal Grandmother Pancreatic cancer Maternal Grandmother Breast cancer Social History Housing: Apartment Alcohol intake: former Patient Tobacco Use Status: Former Tobacco user Tobacco use type: Cigarette Cigarettes Per Day: 5 Years Smoked: 10 year e-Cigarette/Vaping Use: Never Used Second Hand Smoke Exposure: Yes service: No Current occupational status: employed Current occupational exposures/hazards: No Cognitive needs: No Hearing needs: No Vision needs: No Review of Systems Const All systems reviewed & are unremarkable except as noted in HPI and below Physical Exam Vital Signs: Last Vital Signs Pulse 60 05/16/24 14:40 BP 131/68 05/16/24 14:40 BMI result Body Mass Index 30.8 No apparent distress Nonicteric Abdomen soft, nondistended Alert and oriented x3, normal gait Assessment & Plan Assessment & Plan (1) Abdominal pain: Code(s): R10.9 - Unspecified abdominal pain Category: Medical (2) Dysphagia: Code(s): R13.10 - Dysphagia, unspecified Category: Medical (3) Weight loss: Code(s): R63.4 - Abnormal weight loss Category: Medical (4) Bright red rectal bleeding: Code(s): K62.5 - Hemorrhage of anus and rectum Category: Medical (5) Blood in stool: Code(s): K92.1 - Melena Category: Medical Plan Ddx for abd pain with change in bowel habits include PUD, gastritis/duodenitis, celiac, SIBO. For dysphagia, will get a barium swallow as well as book him for EGD to r/o stricture vs web vs EoE vs dysmotility. He will also get booked for colonoscopy at the same time both for changes in bowel habits, rectal bleeding, as well as unintentional weight loss. CT abdomen pelvis with contrast has also been ordered for the same. PEG prep reviewed with the patient with the help of a conference interpreter. Plan: - Labs ordered as below - Barium swallow - CT Abd/pel with IV contrast - EGD/colo - Follow up after scopes Orders: Orders Ferritin 05/20/24 R63.4 - Abnormal weight loss Immunoglobulin A 05/20/24 R63.4 - Abnormal weight loss Basic Metabolic Panel 05/20/24 R63.4 - Abnormal weight loss CT abdomen pelvis w IV con 05/16/24 R63.4 - Abnormal weight loss FL barium swallow 05/16/24 R13.10 - Dysphagia, unspecified Complete Blood Count no Diff 05/20/24 R63.4 - Abnormal weight loss TSH reflex Free T4 05/20/24 R63.4 - Abnormal weight loss Transglutaminase IgA 05/20/24 R63.4 - Abnormal weight loss Coding Level of Care Code Est Pt Level 4 (52934) Complex EM visit Add On G2211 Diagnoses Abdominal pain R10.9 Dysphagia R13.10 Weight loss R63.4 Bright red rectal bleeding K62.5 Blood in stool K92.1
[2024-05-16 14:40] VITALS: BP 131/68; PULSE 60; BMI 30.8
== END 2024-05-16 15:51 | disposition home or self-care (01) ==
PROVIDERS: PCP Internal Medicine; Visit Provider Internal Medicine
DX: R10.9 Unspecified abdominal pain (principal); R13.10 Dysphagia, unspecified; R63.4 Abnormal weight loss; K62.5 Hemorrhage of anus and rectum; K92.1 Melena
CPT/HCPCS: 99214; G2211

== ENCOUNTER → 2024-05-16 14:33 | Outpatient (BNVA) | payer OTHER, SELFPAY | PROVIDERS: PCP Internal Medicine; Visit Provider Internal Medicine | DX: K59.00 Constipation, unspecified (principal); R13.10 Dysphagia, unspecified; R10.9 Unspecified abdominal pain; R63.4 Abnormal weight loss; K62.5 Hemorrhage of anus and rectum; K92.1 Melena | CPT/HCPCS: 99212 ==

== ENCOUNTER 2024-05-20 11:48 | Outpatient (REF) | payer OTHER, SELFPAY ==
[2024-05-20 13:14] LABS: Hematocrit 42.7 % (42.0-52.0); Hemoglobin 15.3 g/dl (14.0-18.0); Mean Corpuscular HGB Conc 35.8 g/dl (31.0-36.0); Mean Corpuscular Hemoglobin 31.9 pg (27.0-33.0); Mean Corpuscular Volume 89.1 fL (80.0-98.0); Mean Platelet Volume 10.4 fL (9.4-12.4); Platelet Count 244 X10*3/uL (160-400); Red Blood Count 4.79 X10*6/uL (4.60-5.80); White Blood Count 5.8 X10*3/uL (4.8-10.8)
[2024-05-20 13:19] LABS: Appearance Urine Clear; Color Urine Yellow; Glucose Urine UA Negative (Negative); Leukocyte Esterase Urine Negative (Negative); Nitrite Urine Negative (Negative); PH 6.5 (5.0-9.0); Urine Blood Negative (Negative); Urine Ketones Negative (Negative); Urine Protein Negative (Neg-Trace)
[2024-05-20 14:19] LABS: Alanine Aminotransferase 17 U/L (0-40); Albumin Level 4.2 g/dL (3.5-5.0); Alkaline Phosphatase 88 U/L (39-117); Anion Gap 8 (12-20); Aspartate Amino Transferase 15 U/L (5-37); Bilirubin Total 0.4 mg/dL (0.0-1.0); Blood Urea Nitrogen 19 mg/dL (9-16); Calcium 9.2 mg/dL (8.4-10.2); Carbon Dioxide 33 mmol/L (22-29); Chloride 105 mmol/L (96-108); Estimated Glomerular Filt Rate > 60; Glucose Random 125 mg/dL (60-115); Magnesium 2.1 mg/dL (1.6-2.6); Sodium 142 mmol/L (135-145); Total Protein 6.8 g/dL (6.5-8.0)
[2024-05-20 14:27] LABS: PSA,Total (Free>4and<10) 0.71 ng/mL (0.00-4.00)
[2024-05-20 14:36] LABS: MANUAL DIFF FLAG NO
[2024-05-20 14:37] LABS: Basophils Absolute Auto 0.1 X10*3/uL (0.0-0.2); Basophils Percent Auto 0.9 % (0-2); Eosinophils Absolute Auto 0.2 X10*3/uL (0.0-0.4); Eosinophils Percent Auto 2.7 % (0-4); Imm Gran Abs Auto 0.02 X10*3/uL (0.00-0.03); Imm Gran Pct Auto 0.3 % (0.0-0.4); Lymphocytes Absolute Auto 1.1 X10*3/uL (1.2-4.9); Lymphocytes Percent Auto 19.1 % (20-40); Monocytes Absolute Auto 0.2 X10*3/uL (0.1-1.2); Monocytes Percent Auto 4.1 % (2-11); Neutrophils Absolute Auto 4.3 x10*3/uL (2.0-8.3); Neutrophils Percent Auto 72.9 % (45-73)
[2024-05-20 14:40] LABS: Ferritin 81 ng/mL (20-250); TSH reflex Free T4 0.59 uIU/mL (0.32-4.0)
[2024-05-24 12:53] LABS: Immunoglobulin A 380 mg/dL (47-310)
[2024-05-25 21:33] LABS: Transglutaminase IgA <1.0 U/mL
== END 2024-05-20 11:49 | disposition home or self-care (01) ==
LOC: HO.LAB 11:48
PROVIDERS: PCP Internal Medicine; Referring Provider Internal Medicine; Visit Provider Internal Medicine
DX: R63.4 Abnormal weight loss (principal)
CPT/HCPCS: 36415; 80053; 81003; 82728; 82784; 83735; 84153; 84443; 85025; 85027; 86364

== ENCOUNTER 2024-06-17 10:11 | Outpatient (AMB) | payer OTHER, SELFPAY ==
--- NOTE | 2024-06-17 10:14 | A.OFFVIS_ITS ---
Intake Visit Reasons: Incomplete Bladder Emptying/Retention Intake Note: Patient is present for incomplete bladder emptying/retention Urology Medication:none Antibiotic Allergy:none Blood Thinner:none Business Project Analyst Required: No Allergies No Known Allergies [No Known Allergies*] Allergy (Verified 06/17/24 10:15) HPI Comments Details: Zeyad is a pleasant [place]er-speaking male. He is seen for following urologic conditions. - lower urinary tract symptoms [place]er translation provided by qualified medical policy specialist Feelings of incomplete bladder emptying Had been heightened during GI related issues Reassurance provided And has family history prostate cancer Father developed prostate cancer around age 70 Recommendation for him to check PSA between 45 and 50 This can be done through PCP [facility] Medical History Moderate depressive disorder History of substance abuse Screen for STD (sexually transmitted disease) Left ankle pain Back pain Surgical History History of left inguinal hernia repair (02/03/19) History of nasal septoplasty History of excision of mass History of appendectomy History of open reduction and internal fixation (ORIF) procedure Family History Mother No problems noted. Father Prostate cancer Diverticula of colon Paternal Grandmother Pancreatic cancer Maternal Grandmother Breast cancer Social History Housing: Apartment Alcohol intake: former Patient Tobacco Use Status: Former Tobacco user Tobacco use type: Cigarette Cigarettes Per Day: 5 Years Smoked: 10 year e-Cigarette/Vaping Use: Never Used Second Hand Smoke Exposure: Yes service: No Current occupational status: employed Current occupational exposures/hazards: No Cognitive needs: No Hearing needs: No Vision needs: No Review of Systems Const Denies chills and Denies fever(s) Card Reports no additional complaints and Denies syncope Resp Denies cough GI Denies abdominal pain and Denies heartburn Reports as per HPI and Denies change in libido Neuro Denies syncope Psych Denies change in libido Endo Denies change in libido Physical Exam Const General: cooperative, healthy appearing, comfortable and no acute distress Orientation/consciousness: patient oriented x3 HEENT Face and sinus: Yes normal facial exam Mouth: moist mucous membranes Neck Neck: Yes normal visual inspection, Yes full ROM and Yes trachea midline Chest Chest palpation & inspection: normal inspection of the chest Resp Effort & Inspection: normal respiratory effort, able to speak in complete sentences and no respiratory distress GI Inspection: Yes normal to inspection Back/Spine/Pelvis Cervical Spine: normal cervical lordosis Thoracic/Lumbar Spine: thoracic and lumbar spine normal to inspection Skin General skin exam: no rashes or lesions noted Neuro General: patient oriented x3, gait normal, tone normal and moves all extremities Extrem General: Yes normal to inspection and Yes capillary refill normal Results AMB Urinalysis, Automated UA Leukoctes 0 Dang/uL Last Edit by MANUEL Nelson on 06/17/24 10:29 UA Nitrite Negative Last Edit by Heidi Zuñiga CCM on 06/17/24 10:29 UA Urobilinogen 0.2 mg/dL Last Edit by Heidi Zuñiga CCM on 06/17/24 10:2 9 UA Protein 0 mg/dL Last Edit by Heidi Zuñiga CCM on 06/17/24 10:29 UA pH 6.0 Last Edit by Heidi Zuñiga CCM on 06/17/24 10:29 UA Blood 0 Warren/uL Last Edit by Heidi Zuñiga CCM on 06/17/24 10:29 UA Specific [place] 1.020 Last Edit by Heidi Zuñiga CCM on 06/17/24 10: 29 UA Ketone Negative Last Edit by Heidi Zuñiga CCM on 06/17/24 10:29 UA Bilirubin 0 mg/dL Last Edit by eHidi Zuñiga CCM on 06/17/24 10:29 UA Glucose 0 mg/dL Last Edit by Heidi Zuñiga [facility] on 06/17/24 10:29 Results Reviewed Results Reviewed: Laboratory Last Values Urine pH (Auto) 6.0 06/17/24 10:29 Specific [place] (Auto) 1.020 06/17/24 10:29 Urine Protein (Auto) 0 mg/dL 06/17/24 10:29 Glucose (UA)(Auto) 0 mg/dL 06/17/24 10:29 Urine Ketones (Auto) Negative 06/17/24 10:29 Urine Blood (Auto) 0 Warren/uL 09/27/24 10:29 Urine Nitrite (Auto) Negative 06/17/24 10:29 Urine Bilirubin (Auto) 0 mg/dL 06/17/24 10:29 Urine Urobilinogen (Auto) 0.2 mg/dL 06/17/24 10:29 Leukocyte Esterase (Auto) 0 Dang/uL 06/17/24 10:29 Assessment & Plan Assessment & Plan (1) Weak urinary stream: Code(s): R39.12 - Poor urinary stream Category: Medical Plan P.r.n. follow-up Orders: Orders AMB Urinalysis Automated Today Z13.9 - Encounter for screening, unspecified Patient Instructions: Imaging studies, laboratory and physical exam results were discussed and reviewed in detail. No major barriers to patient understanding were identified. An opportunity to ask questions regarding the treatment plan was provided. All questions were answered. The patient expressed understanding and agreement with the above treatment plan. The patient is aware they should contact our office by phone for worsening of their current condition or the appearance of new urologic symptoms. Compliance is encouraged with any medications and followup testing that is ordered. It is a privilege to participate in the urologic care of your patient. If you have any questions or concerns regarding treatment for the above conditions, or other urologic issues, please do not hesitate to contact me. The office telephone contact is [phone]. This note is constructed using voice recognition software. While every effort has been made to ensure accuracy transport manager errors may have been included. Yours sincerely, Dr Thanh Rodriguez MD, [facility] - Urology Providers of Expert, Compassionate Care for the Genitourinary System Coding Level of Care Code New Pt Level 3 (35396) Diagnoses Weak urinary stream R39.12
== END 2024-06-17 10:55 | disposition home or self-care (01) ==
PROVIDERS: PCP Internal Medicine; Visit Provider Urology
DX: Z13.9 Encounter for screening, unspecified (principal); R39.12 Poor urinary stream
CPT/HCPCS: 99203

== ENCOUNTER → 2024-06-17 10:11 | Outpatient (BNVA) | payer OTHER, SELFPAY | PROVIDERS: PCP Internal Medicine; Visit Provider Urology | DX: R39.12 Poor urinary stream (principal) | CPT/HCPCS: 81003; 99202 ==

== ENCOUNTER 2024-07-07 09:01 | Outpatient (REF) | payer OTHER, SELFPAY ==
--- NOTE | ~2024-07-07 | FL_ITS ---
EXAMINATION: XR FLUOROSCOPY UPPER GI WITH AIR CLINICAL INFORMATION: Epigastric pain. reflux. Dysphagia. COMPARISON: None TECHNIQUE: Fluoroscopic air contrast upper GI examination was performed utilizing standard techniques with thin and thick barium and effervescent granules. Numerous spot images were obtained. FINDINGS: Lateral cine images of the oropharynx and hypopharynx demonstrate normal swallow mechanism with normal epiglottic inversion and soft palate elevation. No tracheal penetration, glottic or subglottic aspiration identified. No nasopharyngeal reflux present. Hypopharyngeal structures appear normal without evidence of mass or diverticulum. There was no significant cricopharyngeal achalasia. Dual and single contrast images of the esophagus demonstrate normal caliber, contour, and mucosal pattern. No evidence of stricture, mass, or ulcerations identified. Esophageal peristalsis was normal. A small type I hiatal hernia is present. Moderate gastroesophageal reflux is seen up to the level of the aortic arch. Dual contrast and single contrast images of the stomach demonstrated a normal contour. The gastric rugal folds have a thickened appearance, suggestive of gastritis. No masses or ulcerations are seen. Contrast freely passed into the gastric antrum and duodenal bulb without delay. Single and air-contrast images of the duodenal bulb demonstrate no abnormality. The duodenal sweep has a normal appearance, course, and mucosal fold appearance. The imaged jejunum has a normal fold pattern and caliber. There is rapid transit of the barium column, with the right colon opacified in less than 10 minutes. Contrast becomes diluted throughout its progression. The distal ileal folds have an irregular/thickened appearance. FLUOROSCOPY TIME: 4 minutes 58 seconds Number of Spot Images: 9 Number of Cine: 14 DOSE AREA PRODUCT: 3523 uGy-m2 (microgray-meter squared) FL/FL upper GI w air w Ba Swallow IMPRESSION: 1. Small type I hiatal hernia with moderate gastroesophageal reflux. 2. Thickened appearance of the gastric rugal folds, suggestive of gastritis. 3. Rapid transit of the barium column, with the right colon opacified less than 10 minutes. The contrast becomes diluted throughout his progression. In addition, there is an irregular/thickened appearance of the distal ileal folds. These findings in the proper clinical context suggest a malabsorption disorder, in particular celiac disease. This procedure was performed by Daniel Arthur PA-C, and supervised by Dr. Nam Electronically signed by: Lauro Nam MD 07/08/2024 01:15 PM EDT RP
== END 2024-07-07 09:02 | disposition home or self-care (01) ==
LOC: HO.XRAY 09:01
PROVIDERS: PCP Internal Medicine; Visit Provider Internal Medicine
DX: R10.13 Epigastric pain (principal)
CPT/HCPCS: 74246

== ENCOUNTER → 2024-07-07 09:03 | Outpatient (BNV) | payer OTHER, SELFPAY | PROVIDERS: PCP Internal Medicine; Visit Provider Radiology Diagnostic Radiology | DX: R13.10 Dysphagia, unspecified (principal) | CPT/HCPCS: 74246 ==

== ENCOUNTER 2024-07-19 16:27 | Outpatient (REF) | payer OTHER, SELFPAY ==
[2024-07-21 14:04] LABS: Immunoglobulin A 401 mg/dL (47-310); Transglutaminase IgA <1.0 U/mL
== END 2024-07-19 16:28 | disposition home or self-care (01) ==
LOC: HO.LAB 16:27
PROVIDERS: PCP Internal Medicine; Visit Provider Internal Medicine
DX: R10.9 Unspecified abdominal pain (principal)
CPT/HCPCS: 36415; 82784; 86364

== ENCOUNTER 2024-08-05 08:53 | Day surgery (SDC) | payer OTHER, SELFPAY ==
[2024-08-02 15:01] VITALS: BMI 30.8
--- NOTE | 2024-08-04 09:42 | P.CONAN_ITS ---
Documented by User: Savannah Torres NP 08/04/24 09:44 HPI - Anesthesia Eval Consult details Narrative: 43yo M for Upper Endoscopy and Colonoscopy Hx substance abuse - no previous tox screen PMF Active Problems Active Problems: All Active Problems Abnormal barium swallow (Acute) Abdominal pain (Acute) Weak urinary stream (Acute) Dysphagia (Acute) Weight loss (Acute) Clavicle enlargement (Acute) Urinary retention (Acute) Tremors of nervous system (Acute) Cramps, extremity (Acute) Epigastric pain (Acute) Family history of colon cancer (Acute) Physical exam (Acute) Left ankle sprain (Acute) Lipoma of left shoulder (Acute) Myofascial muscle pain (Acute) Trapezius muscle strain (Acute) Polyarthralgia (Acute) Mass in neck (Acute) Right shoulder pain (Acute) Left shoulder pain (Acute) Pain of left clavicle (Acute) Bilateral ankle pain (Acute) Thoracic spine pain (Acute) NSAID long-term use (Acute) Bright red rectal bleeding (Acute) LUQ abdominal tenderness (Acute) Blood in stool (Acute) Moderate anxiety (Acute) Screen for STD (sexually transmitted disease) (Acute) Lipoma of arm (Acute) Left ankle pain (Acute) Moderate depressive disorder (Acute) Back pain (Acute) Past Medical History Medical History Anxiety Polyarthralgia Tremor Dysphagia History of substance abuse Moderate depressive disorder Back pain Family History Family History Mother No problems noted. Father Prostate cancer Diverticula of colon Paternal Grandmother Pancreatic cancer Maternal Grandmother Breast cancer Surgical History Surgical History History of left inguinal hernia repair (02/03/19) History of nasal septoplasty History of excision of mass History of appendectomy History of open reduction and internal fixation (ORIF) procedure Social History Social History Housing: Apartment Are you a primary childcare center director to a significant other at home: No Do you presently have visiting nurse or other home services: No Alcohol intake: former Patient Tobacco Use Status: Former Tobacco user Tobacco use type: Cigarette Cigarettes Per Day: 5 Years Smoked: 10 year e-Cigarette/Vaping Use: Never Used Second Hand Smoke Exposure: Yes Have you been hit, kicked, punched, or otherwise hurt by someone within the past year? If so, by whom?: No Are you DNR?: No Advance Directives: No Advance Directives Information Provided: Yes Recently lost weight without trying: No Nutrition Risks: No Nutritional Risk service: No Current occupational status: employed Current occupational exposures/hazards: No Cognitive needs: No Hearing needs: No Vision needs: No Meds Allergies Allergy/AdvReac Type Severity Reaction Status Date / Time No Known Allergies Allergy Verified 08/05/24 09:49 [No Known Allergies*] Home Medications ?Medication ?Instructions ?Recorded ?Confirmed ?Last Taken ?Type pantoprazole 40 mg tablet,delayed 40 mg PO DAILY 12/29/23 08/02/24 08/04/24 History release sertraline 50 mg tablet 50 mg PO DAILY 04/26/24 08/02/24 08/04/24 History buspirone 5 mg tablet 5 mg PO DAILY 05/16/24 08/02/24 08/04/24 History Exam Height,Weight and Vital Signs: Height 5 ft 5 in Weight 83.915 kg Assessment and Plan Assessment Anesthesia Assessment: Chart Reviewed Documented by User: Soha Vinson MD 08/05/24 11:49 [facility] Active Problems Active Problems: All Active Problems Abnormal barium swallow (Acute) Abdominal pain (Acute) Weak urinary stream (Acute) Dysphagia (Acute) Weight loss (Acute) Clavicle enlargement (Acute) Urinary retention (Acute) Tremors of nervous system (Acute) Cramps, extremity (Acute) Epigastric pain (Acute) Family history of colon cancer (Acute) Physical exam (Acute) Left ankle sprain (Acute) Lipoma of left shoulder (Acute) Myofascial muscle pain (Acute) Trapezius muscle strain (Acute) Polyarthralgia (Acute) Mass in neck (Acute) Right shoulder pain (Acute) Left shoulder pain (Acute) Pain of left clavicle (Acute) Bilateral ankle pain (Acute) Thoracic spine pain (Acute) NSAID long-term use (Acute) Bright red rectal bleeding (Acute) LUQ abdominal tenderness (Acute) Blood in stool (Acute) Moderate anxiety (Acute) Screen for STD (sexually transmitted disease) (Acute) Lipoma of arm (Acute) Left ankle pain (Acute) Moderate depressive disorder (Acute) Back pain (Acute) 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 Marijuana 2 years ago Past Medical History Medical History Anxiety Polyarthralgia Tremor Dysphagia History of substance abuse Moderate depressive disorder Back pain Family History Family History Mother No problems noted. Father Prostate cancer Diverticula of colon Paternal Grandmother Pancreatic cancer Maternal Grandmother Breast cancer Family history of problems with anesthesia: No Surgical History Surgical History History of left inguinal hernia repair (02/03/19) History of nasal septoplasty History of excision of mass History of appendectomy History of open reduction and internal fixation (ORIF) procedure History of Problems with Anesthesia: No Social History Social History Housing: Apartment Are you a primary childcare center director to a significant other at home: No Do you presently have visiting nurse or other home services: No Alcohol intake: former Patient Tobacco Use Status: Former Tobacco user Tobacco use type: Cigarette Cigarettes Per Day: 5 Years Smoked: 10 year e-Cigarette/Vaping Use: Never Used Second Hand Smoke Exposure: Yes Have you been hit, kicked, punched, or otherwise hurt by someone within the past year? If so, by whom?: No Are you DNR?: No Advance Directives: No Advance Directives Information Provided: Yes Recently lost weight without trying: No Nutrition Risks: No Nutritional Risk service: No Current occupational status: employed Current occupational exposures/hazards: No Cognitive needs: No Hearing needs: No Vision needs: No Meds Allergies Allergy/AdvReac Type Severity Reaction Status Date / Time No Known Allergies Allergy Verified 08/05/24 09:49 [No Known Allergies*] Home Medications ?Medication ?Instructions ?Recorded ?Confirmed ?Last Taken ?Type pantoprazole 40 mg tablet,delayed 40 mg PO DAILY 12/29/23 08/02/24 08/04/24 History release sertraline 50 mg tablet 50 mg PO DAILY 04/26/24 08/02/24 08/04/24 History buspirone 5 mg tablet 5 mg PO DAILY 05/16/24 08/02/24 08/04/24 History Exam Height,Weight and Vital Signs: Height 5 ft 5 in Weight 83.915 kg Vital Signs Temp Pulse Resp BP Pulse Ox O2 Del Method 08/05/24 10:02 98.2 F 66 18 122/88 97 Room Air Airway Mallampati Class: II TM Dist: >3cm Neck ROM: Full Loose/Missing/Broken Teeth: Yes (Misding teeth back. Denies broken or loose t eeth) Heart: RRR Lungs: CTAB Assessment and Plan Assessment Anesthesia Assessment: Anesthesia Plan Discussed and Chart Reviewed Final Anesthetic Review Family History of Problems with Anesthesia: No History of Problems with Anesthesia: No NPO: Yes ASA Class: II Final Preanesthetic Review: No Changes in Pt Med Stat, Meds/Allgs Chart Reviewed, Consent Obtained/Reviewed and Anes Risks/Benef Reviewed Patient Risk: Low Procedure Risk: Low Assessment/Block/Sedation in SS: Assess/Block/Sedation-SS Anesthetic Plan Anesthetic Plan: TIVA Disposition: Standard PACU
[2024-08-05 09:50] VITALS: BMI 31.6
[2024-08-05] MEDS: Lactated Ringers 1,000 ML 100 ML IVCONT (09:56)
[2024-08-05 10:02] VITALS: BP 122/88; PULSE 66; RESP 18; TEMP 36.8; O2SAT 97
--- NOTE | 2024-08-05 10:23 | P.HPSUR_ITS ---
Pre-Procedural Eval Section A - 24 Hr Update-Section A only Date of Service: 08/05/24 Section B - Complete if H&P > 30 days Chief Complaint: Dysphagia,rectal bleed Relevant Family History (Specify if Yes): No Relevant Social History: None Present Medications: see Short Stay Collaborative assessment Medical History: Significant History (Anxiety Polyarthralgia Tremor Dysphagia History of substance abuse Moderate depressive disorder Back pain) History of Previous Operations: Relevant previous surgery/procedure and date(s) (History of left inguinal hernia repair (02/03/19) History of nasal septoplasty History of excision of mass History of appendectomy History of open reduction and internal fixation (ORIF) procedure) Allergies: Allergies Allergy/AdvReac Type Severity Reaction Status Date / Time No Known Allergies Allergy Verified 08/05/24 09:49 [No Known Allergies*] Review of Systems Sugical H&P ROS: Negative: Constitution, Cardiovascular, Respiratory, Neurological, Psychiatric, Hem-Onc, Allergic/Immunologic, Gastrointestinal, Genitourinary, Musculoskeletal, Integumentary, Endocrine and Eyes/Ears/Nose/Throat Exam Surgical H&P Exam: Normal: HEENT, Normal: Heart, Normal: Lungs, Normal: Ex tremities, Normal: Abdomen, Normal: Skin and Normal: Neurological Plan Diagnosis/Plan: Unchanged I have reviewed the history and physical and performed a pertinent physical examination on my patient. No changes have occurred unless specified. Time Spent With Patient Time: Total time managing care of this patient today ____ minutes.
--- NOTE | 2024-08-05 11:53 | HO.OPN-COLON ---
Colonoscopy Operative Note Operative Note Date of Service: 08/05/24 Narrative: Operative Information Procedure Description: EGD, Colonoscopy Indication: dysphagia, abn imaging Anesthesia: MAC FLEXIBLE TRANSORAL UPPER GASTROINTESTINAL ENDOSCOPY AND COLONOSCOPY PROCEDURE NOTE UPPER ENDOSCOPY Consent: Indications for the procedure and potential complications of bleeding, perforation, reaction to medications and missed diagnosis were discussed with the patient and informed consent was obtained. Instrument: Olympus GIF H 190 J mid size upper endoscope Monitoring: Vital signs and clinical assessment, continuous EKG monitoring, Pulse oximetry, Carbon Dioxide monitoring and blood pressure monitoring were done throughout the procedure. Procedure: The patient was placed in the left lateral decubitis position and pre-procedure medications were administered and a bite block was placed. The endoscope was inserted into the mouth and advanced under direct vision to the third part of duodenum. A careful inspection was made as the upper endoscope was withdrawn including a retroflexed examination of the proximal stomach; Findings and interventions are described below. Findings: Larynx:normal Esophagus: GE junction at 37 cm, diaphragm hiatus at 40 cm, consistent with fixed hiatal hernia 3 cm. [place] pink appearing tissue at distal esophagus, consistent with Barretts, C3M4 by [place]. Bx taken. Balloon dilation done to 18 mm at UES and LES -no tears seen Stomach: Patchy erythema. Biopsies were obtained. Grade 2 flap valve on retroflexed examination of the cardia. Duodenum: Normal bulb and descending duodenum, bx taken Intervention: Biopsies as noted above, COLONOSCOPY Instrument: Olympus variable stiffness pediatric scope 190L Colonoscopy Monitoring: Vital signs and clinical assessment, continuous EKG monitoring, Pulse oximetry, Carbon Dioxide monitoring and blood pressure monitoring were done throughout the procedure. Colon withdrawal time was 10 minutes. Procedure: The patient was placed in the left lateral decubitis position and pre-procedure medications were administered. After a digital rectal examination of the ano-rectum, the video colonoscope was inserted into the rectum and advanced through the colon to the cecum/TI. The colonoscope was slowly withdrawn in a retrograde panoramic fashion and the colon mucosa was carefully examined including a retroflexed view of the rectum. Findings and interventions are described below. Procedure Difficulty:moderate Findings: Terminal Ileum- patchy erythema, bx taken Right sided colon bx taken Cecum:normal Right sided retroflexion- normal Ascending Colon: normal Transverse Colon -normal Descending Colon:normal Sigmoid Colon: normal Rectum: Retroflexion with small internal hemorrhoids, grade I Anorectum - normal Colon preparation: [place] Bowel Preparation Scale Right colon; 2 Transverse colon: 2 Left colon; 2 (0 = Unprepared colon segment with mucosa not seen due to solid stool that cannot be cleared. 1 = Portion of mucosa of the colon segment seen, but other areas of the colon segment not well seen due to staining, residual stool and/or opaque liquid. 2 = Minor amount of residual staining, small fragments of stool and/or opaque liquid, but mucosa of colon segment seen well. 3 = Entire mucosa of colon segment seen well with no residual staining, small fragments of stool or opaque liquid) Impression and Post Procedure Diagnosis: Endoscopy Findings: hiatal hernia Barretts mild gastritis Colonoscopy Findings: ileitis internal hemorrhoids Plan: Await Pathology results Repeat Colonoscopy in 10 years or earlier if clinically indicated High fiber diet leaflet avoid straining at stool, epsom salts and sitz bath, anusol supps or cream consider CTe or capsule consider hernia repair, alternative PPI as he feels pantoprazole not that effective Above findings were reviewed with the patient and relevant handouts were provided if indicated.
[2024-08-05 11:58] VITALS: BP 114/68; PULSE 78; RESP 21; TEMP 36.3; O2SAT 98
[2024-08-05 12:15] VITALS: BP 125/81; PULSE 76; RESP 17; TEMP 36.3; O2SAT 98
== END 2024-08-05 13:10 | disposition home or self-care (01) ==
PROVIDERS: PCP Internal Medicine; Visit Provider Internal Medicine Gastroenterology
PROC: (CPT 43249; principal; 2024-08-05 11:20)
DX: K44.9 Diaphragmatic hernia without obstruction or gangrene (principal); K22.70 Barrett's esophagus without dysplasia; K29.70 Gastritis, unspecified, without bleeding; R13.10 Dysphagia, unspecified; K52.9 Noninfective gastroenteritis and colitis, unspecified; K64.0 First degree hemorrhoids; K62.5 Hemorrhage of anus and rectum; R63.4 Abnormal weight loss; Z68.30 Body mass index [BMI] 30.0-30.9, adult; Z80.0 Family history of malignant neoplasm of digestive organs; Z87.891 Personal history of nicotine dependence
CPT/HCPCS: 43249; 43239; 45380; 88305; 88313; 88342; C1726; J2003; J2704

== ENCOUNTER → 2024-08-05 08:53 | Outpatient (BNV) | payer OTHER, SELFPAY | PROVIDERS: PCP Internal Medicine; Visit Provider Internal Medicine Gastroenterology | DX: R13.10 Dysphagia, unspecified (principal); R93.3 Abnormal findings on diagnostic imaging of other parts of digestive tract; K22.70 Barrett's esophagus without dysplasia; K29.70 Gastritis, unspecified, without bleeding; K62.5 Hemorrhage of anus and rectum; K52.9 Noninfective gastroenteritis and colitis, unspecified; K64.0 First degree hemorrhoids | CPT/HCPCS: 43239; 43249; 45380 ==

== ENCOUNTER 2024-08-26 10:17 | Outpatient (AMB) | payer OTHER, SELFPAY ==
--- NOTE | 2024-08-26 10:19 | A.OFFVIS_ITS ---
VS Expanded 08/26/24 10:27 BP 141/85 H Blood Pressure Location Rt brachial Blood Pressure Position Sitting Pulse 65 Pulse Source Pulse Oximeter Temp 96.8 F Temperature Source Temporal Artery Scan Pulse Oximetry 97 Oxygen Delivery Method Room Air Height 5 ft 5 in Weight 200 lb 6.4 oz BMI 33.3 Body Fat % 28.6 Body Fat Mass 57.4 Fat Free Mass 142.8 Visceral Fat Rating 13.0 Body Water % 52.5 Body Water Mass 105.2 Muscle Mass/Score 135.8 Basal Metabolic Rate/Score 1,915 Intake Visit Reasons: OV Hiatal Hernia - Dr. 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 Rodriguez for a diaphragmatic hernia. The patient reports GERD and regurgitation especially at nights. The GERD has improved with the continuous use of Pantoprazole but the regurgitation persists. He wants to have it repaired surgically Tests I reviewed: EGD 07/2024: 3cm fixed HH, Path: esophagitis UGI 06/2024: small HH and moderate GERD abdominal US: 2022: normal Blood work: normal [facility] Medical History (Updated 08/26/24 @ 11:31 by Facundo Martin MD) Diaphragmatic hernia GERD (gastroesophageal reflux disease) Anxiety Polyarthralgia Tremor Dysphagia History of substance abuse Moderate depressive disorder Back pain Surgical History History of left inguinal hernia repair (02/03/19) History of nasal septoplasty History of excision of mass History of appendectomy History of open reduction and internal fixation (ORIF) procedure Family History (Updated 08/26/24 @ 10:32 by Vivien Martell CMA) Mother No problems noted. Father Prostate cancer Diverticula of colon Paternal Grandmother Pancreatic cancer Maternal Grandmother Breast cancer Son Autism Son No problems noted. Daughter No problems noted. Social History Housing: Apartment Are you a primary post acute care registered nurse to a significant other at home: No Do you presently have visiting nurse or other home services: No Alcohol intake: former Patient Tobacco Use Status: Former Tobacco user Tobacco use type: Cigarette Cigarettes Per Day: 5 Years Smoked: 10 year e-Cigarette/Vaping Use: Never Used Second Hand Smoke Exposure: Yes service: No Current occupational status: employed Current occupational exposures/hazards: No Cognitive needs: No Hearing needs: No Vision needs: No Physical Exam Vital Signs: Last Vital Signs Temp 96.8 F 08/26/24 10:27 Pulse 65 08/26/24 10:27 BP 141/85 H 08/26/24 10:27 Pulse Ox 97 08/26/24 10:27 Oxygen Delivery Method Room Air 08/26/24 10:27 BMI result Body Mass Index 33.3 GI Inspection: Yes incision (well healed) and Yes obesity Palpation (GI): Soft to palpation Extrem Right lower extremity: normal to inspection Left lower extremity: normal to inspection Assessment & Plan Assessment & Plan (1) Diaphragmatic hernia: Code(s): K44.9 - Diaphragmatic hernia without obstruction or gangrene Category: Medical Qualifiers: Obstruction and gangrene presence: without obstruction or gangrene Qualified Code(s): K44.9 - Diaphragmatic hernia without obstruction or gangrene Plan: 1. We discussed the potential etiology of the hernia worsened by his weight. We discussed the details of the diaphragmatic hernia repair and the potential technical challenges such as being able to achieve enough mobilization of the esophagus back in the abdomen and being able to close the diaphragmatic muscle (crura) primarily with sutures. We also discussed the possibility of using a biologic mesh to close the hernia defect if the crura cannot be adequately re- approximated primarily with sutures. We also discussed the option of doing a gastropexy or a fundoplication to prevent postoperative reflux and prevent hernia recurrence. As we discussed, I favor the gastropexy as the fundoplication can cause several distrurbing symptoms such as gas-bloating, flatulence, inability to burp which can be bothersome. Also we discussed the complexity of a potential hernia recurrence in association with a hernia recurrence. He was in agreement not to have a fundoplication. We also discussed that after surgery, he will need to be on a liquid diet with protein shakes the first week. The second week will add protein bars and soft foods and after the third week we will introduce small amounts of regular food. The transition to normal eating habits will take about 6 weeks which is the time required for the repair to heal completely. He is in agreement to proceed with surgery and it was scheduled on 10/12/2024 Orders: Orders ECG 12 lead EKG Today Z01.818 - Encounter for other preprocedural examination
[2024-08-26 10:27] VITALS: BP 141/85; PULSE 65; TEMP 36; O2SAT 97; BMI 33.3
== END 2024-08-26 11:41 | disposition home or self-care (01) ==
PROVIDERS: PCP Internal Medicine; Visit Provider Surgery
DX: K44.9 Diaphragmatic hernia without obstruction or gangrene (principal)
CPT/HCPCS: 99204

== ENCOUNTER 2024-08-30 17:00 | Outpatient (AMB) | payer OTHER, SELFPAY ==
[2024-08-30 17:06] VITALS: BP 118/80; BMI 33.6
--- NOTE | 2024-08-30 17:06 | A.OFFPC_ITS ---
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 Accompanied by: Self / Same As Patient Allergies No Known Allergies [No Known Allergies*] Allergy (Verified 08/30/24 17:30) Medication List - Last Reconciled 08/30/24 by Lavonne Terry MD ibuprofen 800 mg PO TID pantoprazole 40 mg PO DAILY Tobacco use date assessed: 12/29/23 Dental Screening Dental Screen Date: 12/29/23 Did you have a dental visit in the last 12 months?: No Did you have a dental problem in the last 6 months where you did not have access to dental care?: No Was dental information given to patient?: Patient has dentist HPI HPI Comments History of Present Illness Details The patient is a 43-year-old male presenting with left shoulder pain and weakness in the left hand following a fall 3 days ago 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 The event occurred when the patient slipped on ice and fell, landing on his shoulder and left hand. The immediate consequence was a palpable pain in the shoulder and hand, particularly noticeable in the left fifth finger, which has reportedly been weaker since the accident. The patient denies swelling or bruising in these areas, and imaging done at [facility] showed no fractures. The fall also resulted in some localized pain at the site where the left shoulder hit the ground. The patient has Everett's Esophagus and a hiatal hernia, managed with pantoprazole. These conditions have historically been stable, as noted in recent endoscopic evaluations, and there have been no recent exacerbations. [facility] Medical History (Updated 08/30/24 @ 19:33 by Lavonne Terry MD) Diaphragmatic hernia GERD (gastroesophageal reflux disease) Anxiety Polyarthralgia Tremor Dysphagia History of substance abuse Moderate depressive disorder Back pain Surgical History Hx of colonoscopy History of left inguinal hernia repair (02/03/19) History of nasal septoplasty History of excision of mass History of appendectomy History of open reduction and internal fixation (ORIF) procedure Family History Mother No problems noted. Father Prostate cancer Diverticula of colon Paternal Grandmother Pancreatic cancer Maternal Grandmother Breast cancer Son Autism Son No problems noted. Daughter No problems noted. Social History Housing: Apartment Are you a primary career portals teacher to a significant other at home: No Do you presently have visiting nurse or other home services: No Alcohol intake: former Patient Tobacco Use Status: Former Tobacco user Tobacco use type: Cigarette Cigarettes Per Day: 5 Years Smoked: 10 year e-Cigarette/Vaping Use: Never Used Second Hand Smoke Exposure: Yes service: No Current occupational status: employed Current occupational exposures/hazards: No Cognitive needs: No Hearing needs: No Vision needs: No Questionnaire Thrive Questionnaire Date Thrive assessed: 12/29/23 KEELY-7 AMB Questionnaire KEELY-7 Date KEELY - 7 assessed: 12/29/23 Source: Developed by Drs. Prince Cornell, Katie May, Valdo Barrow and colleagues, with an educational [place] from [employer]. Review of Systems Const Details: - Musculoskeletal: Reports left shoulder pain, left hand weakness. - Neurological: Reports weakness in the left fifth finger. Physical exam (Primary Care) Vital Signs: Last Vital Signs BP 118/80 08/30/24 17:06 BMI result Body Mass Index 33.6 BMI Assessment/Plan discussion: High BMI High, discussed plan: lifestyle, weight reduction, dietary and physical activity Tobacco/Smoking Status: Tobacco use Status Tobacco use date assessed 12/29/23 08/30/24 17:09 Patient Tobacco Use Status Former Tobacco user 08/30/24 17:09 Tobacco use type Cigarette 08/30/24 17:09 e-Cigarette/Vaping Use Never Used 08/30/24 17:09 Thrive Assessment: Date of Thrive Assessment Date Thrive assessed 12/29/23 08/30/24 17:09 Const Other: General: No confusion Neck: Normal visual inspection and Yes supple Respiratory: Normal respiratory effort, clear to auscultation bilaterally Cardiovascular: No jugular venous distension, regular rate, regular rhythm, S1 normal heart sound present and S2 normal heart sound present Extremities: Full ROM, but weakness noted in one finger of the left hand Coding Level of Care Code Est Pt Level 4 (37087) Complex EM visit Add On G2211 Diagnoses Left elbow pain M25.522 Left hand pain M79.642 Lumbar pain M54.50 Left shoulder pain M25.512 Neck pain M54.2 Everett esophagus K22.70 Time Spent (min) 22 Assessment & Plan Assessment & Plan (1) Left elbow pain: Code(s): M25.522 - Pain in left elbow Category: Medical (2) Left hand pain: Code(s): M79.642 - Pain in left hand Category: Medical (3) Lumbar pain: Code(s): M54.50 - Low back pain, unspecified Category: Medical (4) Left shoulder pain: Code(s): M25.512 - Pain in left shoulder Category: Medical (5) Neck pain: Code(s): M54.2 - Cervicalgia Category: Medical (6) Everett esophagus: Code(s): K22.70 - Everett's esophagus without dysplasia Category: Medical Plan - Left Shoulder Pain: Referral to orthopedics for further assessment of the left shoulder pain and possible therapy. - Left Hand Weakness: Referral to orthopedics for further evaluation of the hand weakness, and consideration for physical therapy to improve strength. - Everett's Esophagus and Hiatal Hernia: Continue pantoprazole for management, surgical consultation scheduled in September for hernia. Patient was informed and verbally consented to the use of an ambient scribe for clinic note documentation during this visit. I discussed with the patient the implications of the fall on his current symptoms and the importance of further evaluation by orthopedics to rule out any structural issues in the shoulder or hand that might not have been visible on initial imaging. We also discussed the continuation of pantoprazole for Everett's Esophagus and the planned surgical consultation regarding the hiatal hernia. I emphasized the potential benefits of physical therapy to address the weakness in the hand and to restore full function. The patient was advised on precautions in icy conditions to prevent future falls. Orders: Orders PT Evaluation and Treatment Today M25.512 - Pain in left shoulder, M54.2 - Cervicalgia, M54.50 - Low back pain, unspecified OT Evaluation and Treatment Today M25.522 - Pain in left elbow, M79.642 - Pain in left hand Referrals Orthopedics Referral M25.522 - Pain in left elbow, M79.642 - Pain in left hand Patient Instructions: - Follow up with orthopedic consultation for shoulder and hand evaluation. - Begin physical therapy as recommended by orthopedics. - Continue taking pantoprazole as prescribed. - Avoid ice-related falls by ensuring appropriate footwear and cautious movement during icy conditions.
== END 2024-08-30 17:43 | disposition home or self-care (01) ==
PROVIDERS: PCP Internal Medicine; Visit Provider Internal Medicine
DX: M25.522 Pain in left elbow (principal); M79.642 Pain in left hand; M54.50 Low back pain, unspecified; M25.512 Pain in left shoulder; M54.2 Cervicalgia; K22.70 Barrett's esophagus without dysplasia

== ENCOUNTER → 2024-08-30 17:00 | Outpatient (BNVA) | payer OTHER, SELFPAY | PROVIDERS: PCP Internal Medicine; Visit Provider Internal Medicine | DX: M25.522 Pain in left elbow (principal); M79.642 Pain in left hand; M54.50 Low back pain, unspecified; M25.512 Pain in left shoulder; M54.2 Cervicalgia; K22.70 Barrett's esophagus without dysplasia | CPT/HCPCS: 99212 ==

== ENCOUNTER 2024-09-30 10:31 | Outpatient (REF) | payer OTHER, SELFPAY ==
--- NOTE | ~2024-09-30 | XR_ITS ---
EXAMINATION: XR HAND 3 OR MORE VIEWS LEFT HISTORY: M79.642 - Pain in left hand COMPARISON: There are no prior studies available for comparison. FINDINGS: Three views of the left hand are submitted. Osseous mineralization is normal. There is no fracture or dislocation. There are mild degenerative changes involving the 1st MTP joint. The remaining joint spaces are maintained. The soft tissues are unremarkable. XR/XR hand LT min 3V IMPRESSION: Mild degenerative changes involving the 1st MTP joint. Electronically signed by: Prince Real MD 10/04/2024 07:13 AM JACOB NICOLE
== END 2024-09-30 10:32 | disposition home or self-care (01) ==
LOC: HO.HOSX 10:31
DX: M79.645 Pain in left finger(s) (principal); R10.9 Unspecified abdominal pain; R13.10 Dysphagia, unspecified; R63.4 Abnormal weight loss; K62.5 Hemorrhage of anus and rectum; K92.1 Melena; K63.9 Disease of intestine, unspecified; K22.70 Barrett's esophagus without dysplasia; K44.9 Diaphragmatic hernia without obstruction or gangrene; K21.9 Gastro-esophageal reflux disease without esophagitis; Z98.890 Other specified postprocedural states
CPT/HCPCS: 73130; 99202; 99212

== ENCOUNTER 2024-09-30 13:29 | Outpatient (AMB) | payer OTHER, SELFPAY ==
--- NOTE | 2024-09-30 13:32 | A.OFFVIS_ITS ---
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 States he fell on black ice in a parking lot approx July 2024. States he landed on his left side injuring his left hand, shoulder and neck. He is currently complaining of left thumb pain. Limited ROM on thumb, he is not able to do heavy lifting. He feels like its dislocated. He also notice he has a bulge by his neck that he had prior however it has increase after his injury. 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 The patient states that he was in a parking lot at a [email or web address] when he fell and struck the left side of his body. The patient states that he felt his left thumb bend back when this fall happened, and since then he has been experiencing significant discomfort in the left thumb. Patient states that he feels he has some hyperflexibility at the MCP joint of the left thumb, and is able to hyperextend very easily [facility] Medical History Diaphragmatic hernia GERD (gastroesophageal reflux disease) Anxiety Polyarthralgia Tremor Dysphagia History of substance abuse Moderate depressive disorder Back pain Surgical History Hx of colonoscopy History of left inguinal hernia repair (02/03/19) History of nasal septoplasty History of excision of mass History of appendectomy History of open reduction and internal fixation (ORIF) procedure Family History Mother No problems noted. Father Prostate cancer Diverticula of colon Paternal Grandmother Pancreatic cancer Maternal Grandmother Breast cancer Son Autism Son No problems noted. Daughter No problems noted. 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 Neuro: Normal sensation of the tips of all digits of the left hand at this time Vascular: Cap refill brisk Pain: Patient reports no tenderness to palpation about the left thumb There is pain with extension of the left thumb ROM: There is noted to be significantly increased passice hyperextension of the L thumb All other ROM of the L hand full and intact Skin: No lacerations or abrasions. General: No ecchymosis, erythema, or evidence of infection. Psych: Appears grossly normal Affect normal Attitude cooperative Results Reviewed Results Reviewed: X-rays obtained in the office today and independently reviewed by me, Deshaun Zurita PA-C, demonstrate no fracture or acute bony abnormality of the left hand Assessment & Plan Assessment & Plan (1) Pain of left thumb: Code(s): M79.645 - Pain in left finger(s) Category: Medical Plan 1. Hyper flexibility of MCP joint of left thumb I educated the patient about this condition At this time, I feel it was best for the patient to be evaluated by Dr. Ingram, as I am concerned that he may have a old volar plate injury causing this hyperflexibility of his left thumb Until then, patient was advised that he should continue to avoid any heavy lifting or significant range of motion that could cause his thumb to hyperextend Patient is also advised on conservative pain management measures Patient states understanding of this Patient will follow-up next available appointment with Dr. Ingram, sooner with any acute concerns Orders: Orders XR hand LT min 3V 09/30/24 M79.642 - Pain in left hand Coding Level of Care Code New Pt Level 3 (49118) Diagnoses Pain of left thumb M79.641
[2024-09-30 13:33] VITALS: BMI 33.6
== END 2024-09-30 13:53 | disposition home or self-care (01) ==
PROVIDERS: PCP Internal Medicine
DX: M79.645 Pain in left finger(s) (principal)
CPT/HCPCS: 99203

== ENCOUNTER 2024-09-30 14:10 | Outpatient (AMB) | payer OTHER, SELFPAY ==
--- NOTE | 2024-09-30 14:13 | A.OFFVIS_ITS ---
Vital Signs 09/30/24 14:16 Height 5 ft 4 in Weight 202 lb BMI 34.7 BP 107/65 Blood Pressure Location Lt brachial Position Sitting Pulse 51 Intake Visit Reasons: S/P DOUBLE Post op / r/s from 08/26/24 Intake Note: Zeyad presents in the office as a follow up for his EGD and COLO. CC: No concerns just here to go over the results. Allergies No Known Allergies [No Known Allergies*] Allergy (Verified 09/30/24 14:15) HPI Comments Details: 42y.o M here for rectal bleeding x 1 year intermittently. Pt seen with the help of taffy puller. Reports noticing scant amount of fresh blood on wiping after having a BM. The BM itself is brown, not hard, sometimes has to strain. 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 Takes NSAIDs diclofenac once daily and takes pantoprazole with it. No fam hx of CRC or IBD. Pt also mentions heartburn and left sided burning abdominal pain most of the days of the week associated with nausea, pain worse when he does NOT eat. No vomiting, hematemesis, melena. NSAID use as above. Former smoker, quit 2 years ago. No etOH use. 05/16/24: Lost to follow up last year. Seen with an mold holder today. Reports difficulty swallowing. Feels as if food is stuck in his esophagus. Has been having on and off difficulty for almost a year but reports significant worsening since a month. More issue with solids and has to saba with fluids. Feels as if gets stuck in upper chest. No changes in last months. Reports unintentional weight loss of around 15 lbs since past year. Pt also reports father was recently diagnosed with colon polyps but they were benign. Confirmed with him over the phone. Pt reports fam hx of colorectal ca in mat grandmother. - EGD/colo: hiatal hernia Barretts mild gastritis Colonoscopy Findings: ileitis internal hemorrhoids A. Duodenum, biopsy: Small intestinal mucosa within normal limits. B. Stomach, biopsy: Oxyntic mucosa within normal limits; no Helicobacter organisms seen. C. Esophagus, distal, biopsy: - Cardiac-type mucosa with moderate chronic active inflammation and intestinal metaplasia; negative for dysplasia. - No squamous epithelium identified. D. Terminal ileum, biopsy: Terminal ileal mucosa within normal limits. E. Colon, right, biopsy: Colonic mucosa within normal limits. 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 Reports no acute issues today. No abd pain, N,V, changes in stools. Swallowing better sinec empiric dilation. Appetite is back to normal and he has in fact regained at least 10 lbs since last seen. EGD/colo results reviewed. Pt has been referred to foregut surgery already for HH repair consideration. Pt questions need for capsule and discussed that in the absence of sx and normal T.I bx should hold off. However, if CT scan shows small bowel disease, low threshold to proceed. CT booked for next month. [facility] Medical History Diaphragmatic hernia GERD (gastroesophageal reflux disease) Anxiety Polyarthralgia Tremor Dysphagia History of substance abuse Moderate depressive disorder Back pain Surgical History Hx of colonoscopy History of left inguinal hernia repair (02/03/19) History of nasal septoplasty History of excision of mass History of appendectomy History of open reduction and internal fixation (ORIF) procedure Family History Mother No problems noted. Father Prostate cancer Diverticula of colon Paternal Grandmother Pancreatic cancer Maternal Grandmother Breast cancer Son Autism Son No problems noted. Daughter No problems noted. 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 Current occupational exposures/hazards: No Cognitive needs: No Hearing needs: No Vision needs: No Review of Systems Const All systems reviewed & are unremarkable except as noted in HPI and below Physical Exam Vital Signs: Last Vital Signs Pulse 51 09/30/24 14:16 BP 107/65 09/30/24 14:16 BMI result Body Mass Index 34.7 No apparent distress Nonicteric Abdomen soft, nondistended Alert and oriented x3, normal gait Assessment & Plan Assessment & Plan (1) Abdominal pain: Code(s): R10.9 - Unspecified abdominal pain Category: Medical (2) Dysphagia: Code(s): R13.10 - Dysphagia, unspecified Category: Medical (3) Weight loss: Code(s): R63.4 - Abnormal weight loss Category: Medical (4) Bright red rectal bleeding: Code(s): K62.5 - Hemorrhage of anus and rectum Category: Medical (5) Blood in stool: Code(s): K92.1 - Melena Category: Medical (6) Thickened small bowel: Code(s): K63.9 - Disease of intestine, unspecified Category: Medical (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 Dysphagia - resolved since empiric dilation 2. Unintentional weight loss - also resolved. Appetite is back to abseline and has gained 10 lbs since last seen in office. 3. BRBPR - likely from hemorrhoids. Reviewed avoidance of triggers such as straining, constipation, lifting heavy weight Sitz baths Daily fiber Can consider topical hydrocort if bleed/painful 4. ? T.I thickening: noted on UGIS. T.I biopsies normal on colo 07/2024. Pt without correlating sx. CT abd/pel ordered - booked for Oct, will await results to determine if needs any w/up. 5. 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 Former smoker Discussed daily PPI indefinitely Pt also being seen by bariatrics for consideration of HH repair 6. CRC screening Next colo due 2033. Follow up 2 months Medications: New 2 omeprazole 20 mg PO DAILY 90 days 90 caps 1RF Coding Level of Care Code Est Pt Level 5 (09845) Diagnoses Abdominal pain R10.9 Dysphagia R13.10 Weight loss R63.4 Bright red rectal bleeding K62.5 Blood in stool K92.1 Thickened small bowel K63.9 Everett esophagus K22.70 Diaphragmatic hernia without obstruction and without gangrene K44.9 Obstruction and gangrene presence: without obstruction or gangrene GERD (gastroesophageal reflux disease) K21.9
[2024-09-30 14:16] VITALS: BP 107/65; PULSE 51; BMI 34.7
== END 2024-09-30 14:40 | disposition home or self-care (01) ==
PROVIDERS: PCP Internal Medicine; Visit Provider Internal Medicine
DX: R13.10 Dysphagia, unspecified (principal); R63.4 Abnormal weight loss; K92.1 Melena; K63.9 Disease of intestine, unspecified; K22.70 Barrett's esophagus without dysplasia; K44.9 Diaphragmatic hernia without obstruction or gangrene; K21.9 Gastro-esophageal reflux disease without esophagitis
CPT/HCPCS: 99214

== ENCOUNTER 2024-10-04 14:09 | Outpatient (AMB) | payer OTHER, SELFPAY ==
[2024-10-04 15:06] VITALS: BMI 34.7
--- NOTE | 2024-10-04 15:06 | MHC.OFFVIS ---
Vital Signs 10/04/24 15:06 Height 5 ft 4 in Weight 202 lb BMI 34.7 Intake Visit Reasons: OV-Instability of left thumb IP joint Intake Note: Zeyad 43 yr old male presents today for his follow up visit for his left thumb IP joint pain. States he fell on black ice in a parking lot approx July 2024. States he landed on his left side injuring his left hand, shoulder and neck. He is currently complaining of left thumb pain. Limited ROM on thumb, he is not able to do heavy lifting. He feels like its dislocated. Last seen with Jaclyn Meade who would like patient to be seen with Dr Ingram. Allergies No Known Allergies [No Known Allergies*] Allergy (Verified 10/04/24 15:11) HPI HPI OV-Instability of left thumb IP joint: Details: Zeyad is a 43 year old right hand dominant Andorran speaking man who presents for left thumb pain. [employer] services used. He fell on ice in ~07/2024, landing on his left side and injuring his thumb. He says he was seen in the hospital where X-rays were taken and he was told he didn't have a fracture. He presents with complaints of pain & weakness in his left thumb. he says it feels like his thumb is dislocated . He reports pain & limited ROM in his thumb, and says he cannot lift anything heavy. He says he also feels like his thumb bends too far backwards . [facility] Medical History Diaphragmatic hernia GERD (gastroesophageal reflux disease) Anxiety Polyarthralgia Tremor Dysphagia History of substance abuse Moderate depressive disorder Back pain Surgical History Hx of colonoscopy History of left inguinal hernia repair (02/03/19) History of nasal septoplasty History of excision of mass History of appendectomy History of open reduction and internal fixation (ORIF) procedure Family History Mother No problems noted. Father Prostate cancer Diverticula of colon Paternal Grandmother Pancreatic cancer Maternal Grandmother Breast cancer Son Autism Son No problems noted. Daughter No problems noted. 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 Current occupational exposures/hazards: No Cognitive needs: No Hearing needs: No Vision needs: No Review of Systems Const All systems reviewed & are unremarkable except as noted in HPI and below Physical Exam Vital Signs: BMI result Body Mass Index 34.7 Const General: cooperative, healthy appearing and no acute distress Orientation/consciousness: patient oriented x3 HEENT Head: Yes normocephalic and Yes atraumatic Eyes EOM: EOMs intact bilaterally Resp Effort & Inspection: normal respiratory effort and able to speak in complete sentences Cardio Jugular venous distension: no JVD Skin General skin exam: turgor normal Rashes: no rashes Neuro General: patient oriented x3 Extrem Other: Evaluation of Left Upper Extremity: The patient is alert, oriented, and in no acute distress Neuro: Median, Ulnar, Radial nerves motor and sensory intact and sensation is normal to the tips of all digits Vascular: Cap refill brisk ROM: He can bring his fingers closed to a fist and back into extension Good active flexion and extension of the thumb. His left thumb MCP joint be brought into Hyperextension of ~5-10 degrees, and is somewhat painful with this hyper extension. The thumb does not dislocate. His uninjured right thumb MCP joint is flexed ~5 degrees away from full extension. This is his presumed normal thumb. Good left thumb MCP joint UCL & RCL function. No laxity, good end points. Skin: No lacerations or abrasions. General: No Ecchymosis. No Erythema or evidence of infection. Radiographs: 3 views of the left hand from 09/30/24 were reviewed by me today in clinic. They show no fractures or dislocations. Psych Appearance: grossly normal Affect: normal affect Attitude: cooperative Assessment & Plan Assessment & Plan (1) Injury of volar plate of metacarpophalangeal (MCP) joint of thumb: Code(s): S69.90XA - Unspecified injury of unspecified wrist, hand and finger(s), initial encounter Category: Medical Plan Assessment & Plan: 1. Left thumb MCP volar plate injury From a fall, DOI: ~07/2024 I educated him about this condition I discussed operative and non-operative treatment options I recommend activity modification, and he is in agreement I discussed activity modification, he is to avoid any hyperextension motions of his left thumb at this time I ordered OT hand therapy to have a custom thermoplastic dorsal blocking thumb splint made, which allows for IP joint ROM but protect the volar plate. He is to wear this like a cast except for showering for the next 4-6 weeks He should limit or avoid any heavy lifting or impact activities at this time. This includes modifying his activities when caring for his young children as he has pain when lifting his toddler up. He will work on ROM exercises with OT hand therapy He will follow up 4-6 weeks for a ROM check Scribed for Deanna Ingram MD by Dante Sims, medical record clerk, on 10/04/24 at 3:40 PM, EST. Orders: Orders OT Evaluation and Treatment 10/04/24 S69.80XA - Other specified injuries of unspecified wrist, hand and finger(s), initial encounter Coding Level of Care Code Est Pt Level 3 (81911) Diagnoses Injury of volar plate of metacarpophalangeal (MCP) joint of thumb S69.90XA
== END 2024-10-04 15:50 | disposition home or self-care (01) ==
PROVIDERS: PCP Internal Medicine; Visit Provider Orthopaedic Surgery
DX: S69.90XA Unspecified injury of unspecified wrist, hand and finger(s), initial encounter (principal)
CPT/HCPCS: 99213

== ENCOUNTER → 2024-10-04 14:09 | Outpatient (BNVA) | payer OTHER, SELFPAY | PROVIDERS: PCP Internal Medicine; Visit Provider Orthopaedic Surgery | DX: S69.90XD Unspecified injury of unspecified wrist, hand and finger(s), subsequent encounter (principal) | CPT/HCPCS: 99212 ==

== ENCOUNTER 2024-11-04 09:43 | Outpatient (RCR) | payer OTHER, SELFPAY ==
--- NOTE | 2024-11-04 10:42 | MHC.OT.EP ---
[address] [phone] Occupational Therapy Plan of Care Patient Name: Zeyad Martell Date of Evaluation: 11/04/24 Diagnosis: Left thumb MCP volar plate injury Pain Location: Left volar MCP w/ extension/hyperextension Pain Score: 4 Pain Scale Used: Numeric (0 - 10) Aggravating Factors: Alleviating Factors: Avoiding movement/hyperextension Assessment: 43 yo male fell on black ice August 27, 2024. He [facility] at [facility] 09/30/24 with left thumb pain during MCP ext, likely volar plate injury. He has follow up with Dr Ingram and ordered OT for hand based dorsal blocking orthosis (order one month ago and has been unable to come due to his schedule limitations). Zeyad is in today for splinting needs and has been fit with smaller profile thumb dorsal blocking orthosis for work and hand based MCP block orthosis for more general wear and comfort. He has been educated on splint wear and care and appears satisfied with comfort and fit. I have told him to call if anything changes or if he needs splint adjustments, otherwise no further hand therapy services needed at this time. Frequency and Duration: The patient will be seen Short Term Goals: Care Home Goals: Treatment Plan: Splinting Patient Education Follow up as needed for splint adjustments Electronically Signed By: Daisy Washburn OTR/Jennifer CHT Please Sign and return to therapist. Thank you once again for your referral.
== END 2024-12-30 09:41 | disposition home or self-care (01) ==
LOC: HO.OT 09:43
PROVIDERS: PCP Internal Medicine; Visit Provider Orthopaedic Surgery
DX: S69.80XD Other specified injuries of unspecified wrist, hand and finger(s), subsequent encounter (principal)
CPT/HCPCS: 29130; 97165; 97760

== ENCOUNTER 2024-11-23 17:00 | Outpatient (RCR) | payer OTHER, SELFPAY ==
--- NOTE | 2024-10-28 14:18 | MHC.PT.EP ---
[facility] [place] [facility] [place] Office [place] Office [address] [phone] F: [phone] F: [phone] F: [phone] F: [phone] Physical Therapy Plan of Care Date of Evaluation: 10/28/24 Date of Surgery: NA Diagnosis: Pain in L shoulder Cervicalgia Low back pain Assessment: Zeyad is a 43 year old male who is referred to PT for Pain in L shoulder, Cervicalgia, Low back pain . He currently reports of having in L shoulder and neck. He reports of having sudden onset of pain in L shoulder and neck following a fall on black ice on his L side about 2 months back. On PT examination he presented with TTP over L UT, L levator scap and shoulder joint line, pain with over head shoulder motions, and neck motions, decreased scap strength, and altered GH rhythm. He lives alone and is independent with all ADLS but pain with dressing. 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 He has pain with this. he would benefit from skilled PT to address the aforementioned impairments and improve tolerance to functional activities. Frequency and Duration: The patient will be seen 2/week for 4 weeks Short Term Goals: 1. Pt will have 50% decrease in pain which will enable him to sleep through the night in 2 weeks. 2. Pt will be able to move his shoulder through full plane of motion without pain which will enable him to dress his upper body without pain in 3 weeks. 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 Pt will be demonstrate an increase in muscle strength by 1 grade which will enable him to perform all work activities without pain in 5 weeks. 2. Pt will be independent with all HEP and return to PLOF in 5 weeks. Treatment Plan: Modalities to reduce pain, spasms and effusion. Manual therapy to restore motion and function. Therapeutic exercise to improve strength and flexibility. Neuromuscular re-education for posture and balance. Therapeutic activities to return to functional activities of daily living. Electronically signed by: Dory Valencia PT DPT Please sign and return to therapist. Thank you for your referral.
--- NOTE | 2025-01-24 09:41 | MHC.PT.DC ---
[facility] [place] [facility] [place] [facility] [place] Office [address] [phone] F: [phone] F: [phone] F: [phone] F: [phone] Physical Therapy Discharge Report Diagnosis: Pain in L shoulder Cervicalgia Low back pain Date of Surgery: NA Date of Evaluation: 10/28/24 Date of Discharge: 01/24/25 Treatments to Date: 8 Cancellations to Date: 0 No Shows to Date: 0 Discharge Status: Achieved Goals Improved Function Independent with HEP Discharge Summary: Zeyad attended 8 PT visits and made significant improvements. He has achieved all goals set for him. He is therefore being d/c from PT. Electronically signed by: Dory Valencia, PT DPT Please sign and return to therapist. Thank you for your referral.
== END 2025-01-24 09:41 | disposition home or self-care (01) ==
LOC: HO.PT 17:00
PROVIDERS: PCP Internal Medicine; Visit Provider Internal Medicine
DX: M25.512 Pain in left shoulder (principal); M54.2 Cervicalgia; M54.50 Low back pain, unspecified
CPT/HCPCS: 97110; 97161; 97530

== ENCOUNTER 2024-12-02 15:31 | Outpatient (AMB) | payer OTHER, SELFPAY ==
--- NOTE | 2024-12-02 15:42 | MHC.OFFVIS ---
Vital Signs 12/02/24 15:43 Height 5 ft 4 in Weight 203 lb BMI 34.8 BP 117/69 Blood Pressure Location Lt brachial Position Sitting Pulse 64 Intake Visit Reasons: 2 mo f/u Intake Note: Zeyad presents in the office as a 2 month follow up. Curtain Supervisor Required: Yes Curtain Supervisor Name: Latasha Taylor005 Allergies gluten Allergy (Mild, Verified 12/02/24 15:43) stomach pains HPI Comments Details: 42y.o M here for rectal bleeding x 1 year intermittently. Pt seen with the help of flat locker. Reports noticing scant amount of fresh blood on wiping after having a BM. The BM itself is brown, not hard, sometimes has to strain. 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 Takes NSAIDs diclofenac once daily and takes pantoprazole with it. No fam hx of CRC or IBD. Pt also mentions heartburn and left sided burning abdominal pain most of the days of the week associated with nausea, pain worse when he does NOT eat. No vomiting, hematemesis, melena. NSAID use as above. Former smoker, quit 2 years ago. No etOH use. 05/16/24: Lost to follow up last year. 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 Reports difficulty swallowing. Feels as if food is stuck in his esophagus. Has been having on and off difficulty for almost a year but reports significant worsening since a month. More issue with solids and has to saba with fluids. Feels as if gets stuck in upper chest. No changes in last months. Reports unintentional weight loss of around 15 lbs since past year. Pt also reports father was recently diagnosed with colon polyps but they were benign. Confirmed with him over the phone. Pt reports fam hx of colorectal ca in mat grandmother. - EGD/colo: hiatal hernia Barretts mild gastritis Colonoscopy Findings: ileitis internal hemorrhoids A. Duodenum, biopsy: Small intestinal mucosa within normal limits. B. Stomach, biopsy: Oxyntic mucosa within normal limits; no Helicobacter organisms seen. C. Esophagus, distal, biopsy: - Cardiac-type mucosa with moderate chronic active inflammation and intestinal metaplasia; negative for dysplasia. - No squamous epithelium identified. D. Terminal ileum, biopsy: Terminal ileal mucosa within normal limits. E. Colon, right, biopsy: Colonic mucosa within normal limits. 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 Reports no acute issues today. No abd pain, N,V, changes in stools. Swallowing better sinec empiric dilation. Appetite is back to normal and he has in fact regained at least 10 lbs since last seen. EGD/colo results reviewed. Pt has been referred to foregut surgery already for HH repair consideration. Pt questions need for capsule and discussed that in the absence of sx and normal T.I bx should hold off. However, if CT scan shows small bowel disease, low threshold to proceed. CT booked for next month. 12/02/24: here for follow up. Was offered an appt after CT was done but pt requested to keep an appt before the scan was done. Reports was recently diagnosed with gluten allergy but blood work and egd and bx reviewed and no celiac. Pt reports feeling better when he avoids gluten. Main issue today is feeling of dry scratchy throat. Feeling remains despite drinking lots of fluids. Persistent x months low suspicion for infection ? allergy. Also est with Dr Martin now for diaphragmatic hernia and GERD. Lionel for repair next month. GERD sx well controlled with PPI. Has SSBE. [facility] Medical History Diaphragmatic hernia GERD (gastroesophageal reflux disease) Anxiety Polyarthralgia Tremor Dysphagia History of substance abuse Moderate depressive disorder Back pain Surgical History Hx of colonoscopy History of left inguinal hernia repair (02/03/19) History of nasal septoplasty History of excision of mass History of appendectomy History of open reduction and internal fixation (ORIF) procedure Family History Mother No problems noted. Father Prostate cancer Diverticula of colon Paternal Grandmother Pancreatic cancer Maternal Grandmother Breast cancer Son Autism Son No problems noted. Daughter No problems noted. 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 Current occupational exposures/hazards: No Cognitive needs: No Hearing needs: No Vision needs: No Review of Systems Const All systems reviewed & are unremarkable except as noted in HPI and below Physical Exam Vital Signs: Last Vital Signs Pulse 64 12/02/24 15:43 BP 117/69 12/02/24 15:43 BMI result Body Mass Index 34.8 No apparent distress Nonicteric Abdomen soft, nondistended Alert and oriented x3, normal gait Assessment & Plan Assessment & Plan (1) Abdominal pain: Code(s): R10.9 - Unspecified abdominal pain Category: Medical (2) Thickened small bowel: Code(s): K63.9 - Disease of intestine, unspecified Category: Medical (3) 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 Dry throat: reviewed that may be secondary to seasonal allergies vs dry air. Low likelihood of infection given duration of sx. Plan: - Trial of levocetirizine - Use humidifier - Seek ENT referral if sx not better in 2-3 weeks with this intervention 2. ? T.I thickening: noted on UGIS. T.I biopsies normal on colo 07/2024. Pt without correlating sx. CT abd/pel ordered - booked for December. Of note- pt reports being told he has celiac but clarified that based on labs and egd, no evidence of celiac. However may have gluten intolerance and therefore ok to cont avoidance if abd sx better with GFD. 3. 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 Former smoker Discussed daily PPI indefinitely Pt also being seen by bariatrics for consideration of HH repair 4. CRC screening Next colo due 2033. Follow up after CT done Medications: New levocetirizine (24HR Allergy Relief) 5 mg PO DAILY 90 days 90 tabs 0RF J39.2 - Other diseases of pharynx Coding Level of Care Code Est Pt Level 4 (46902) Diagnoses Abdominal pain R10.9 Thickened small bowel K63.9 Everett esophagus K22.70 Diaphragmatic hernia without obstruction and without gangrene K44.9 Obstruction and gangrene presence: without obstruction or gangrene GERD (gastroesophageal reflux disease) K21.9 Dry throat J39.2
[2024-12-02 15:43] VITALS: BP 117/69; PULSE 64; BMI 34.8
--- OUTSIDE RECORDS SUMMARY | 2024-12-02 16:38 | XMS_ITS | Encounter Summary ---
Author Organization [facility] Address [address] [place] [address] Care Team Providers Care Geothermal Powerplant Mechanic Name Role Phone Vickie Herrmann DMD Primary Care Provider [phone] Encounter Details Date Type Department Care Team (Late st Contact Info) Description 02/15/2022 Dental Interim Note [facility] Main Dental [address] [place] [address] Neeru Llamas Y [address] [place], [place] [id number] Social History Tobacco Use Types Packs/Day Years Used Date Smoking Tobacco: Former Smokeless Tobacco: Never Social Connections Answer Date Recorded Social Connections and Isolation 0 08/15/2019 Financial Resource Strain Answer Date R ecorded Financial Resource Strain 0 2018 Stress Answer Date Recorded Stress 0 08/15/2019 Physical Activity Answer Date Recorded Physical Activity 0 08/15/2019 Food Insecurity Answer Date Recorded Food 0 08/15/2019 Transportation Needs Answer Date Record ed Transportation 0 08/15/2019 Housing Stability Answer Date Recorded Housing 0 08/15/2019 Safety and Environment Answer Date Neto rded Safety 0 08/15/2019 Utilities Answer Date Recorded Utilities 0 08/15/2019 Employment Answer Date Recorded Employment 0 08/15/2019 Sex and Gender Information Value Date Recorded Sex Assigned at Not on file Legal Sex Male 1:03 PM PST Gender Identity Not on file Sexual Orientation Not on file COVID-19 Exposure Response Date Recorded In the last 10 days, have yo u been in contact with someone who was confirmed or suspected to have Coronavirus/COVID-19? No / Unsure 02/15/2022 10:25 AM EDT documented as of this encounter Plan of Treatment Not on file documented as of this encounter Visit Diagnoses Not on filedocumented in this encounter Care Teams Geothermal Powerplant Mechanic Relationship Specialty Start Date End Date Vickie Herrmann DMD [address] [place] [address] PCP - General 11/30/20 documented as of this encounter
--- OUTSIDE RECORDS SUMMARY | 2024-12-02 16:38 | XMS_ITS | Clinical Summary ---
Author Organization [facility] Address [address] [place] [address] Care Team Providers Care Hydrographic Surveyor Name Role Phone Vickie Herrmann DMD Primary Care Provider [phone] Source Comments PLEASE NOTE, if this patient is a minor, it may be UNLAWFUL to discuss sensitive information that is contained in these records (such as FAMILY PLANNING, MENTAL HEALTH or SUBSTANCE ABUSE) with the minor patient's parent or other person without the patient's specific authorization.[facility] Allergies No known active allergies Medications No known medications Active Problems No known active problems Social History Tobacco Use Types Packs/Day Years Used Date Smoking Tobacco: Former Smokeless Tobacco: Never Social Connections Answer Date Recorded Connectedness 0 06/11/2024 Financial Resource Strain Answer Date R ecorded Financial Resource Strain 0 2018 Stress Answer Date Recorded Stress 0 08/15/2019 Physical Activity Answer Date Recorded Physical Activity 0 08/15/2019 Food Insecurity Answer Date Recorded Food 0 06/16/2024 Transportation Needs Answer Date Record ed Transportation 0 08/15/2019 Housing Stability Answer Date Recorded Housing 0 08/15/2019 Safety and Environment Answer Date Neto rded Safety 0 08/15/2019 Utilities Answer Date Recorded Utilities 0 08/15/2019 Employment Answer Date Recorded Stress 0 06/11/2024 Sex and Gender Information Value Date Recorded Sex Assigned at Not on file Legal Sex Male 1:03 PM PST Gender Identity Not on file Sexual Orientation Not on file Last Filed Vital Signs Vital Sign Reading Time Taken Comments Blood Pressure 115/78 08/08/2022 2:21 PM EST Pulse 63 08/08/2022 2:21 PM EST Temperature - - Respiratory Rate - - Oxygen Saturation - - Inhaled Oxygen Concentration - - Weight - - Height - - Body Mass Index - - Plan of Treatment Health Maintenance Due Date Last Done Comments Diabetes Screening 1981 Hepatitis C Screening 1981 Lipid Screening 1981 HIV Screening 1996 Imm-DTaP/Tdap/Td (1 - Tdap) 2000 Imm-Hepatitis B (1 of 3 - 19 + 3-dose series) 2000 Hypertension Screening (#1) 08/08/2023 [id number] (1 - 2023-25 season) 2024 Imm-Influenza (#1) 2024 Alcohol and Drug Screen 09/21/2024 Depression Annual Screen 09/21/2024 Tobacco Screening 08/26/2025 08/26/2024 Dental BW 08/28/2025 08/26/2024, 02/15/2022 Dental Examination 08/28/2025 08/26/2024, 02/15/2022 Dental Perio Charting 08/28/2025 08/26/2024 Dental Prophy 08/28/2025 08/26/2024, 02/15/2022 Dental FMX/Pano 08/07/2029 08/05/2024, 02/15/2022 Procedures Procedure Name Priority Date/Time Associated Diagnosis Comments COMP PERIODONTAL EVALUATION - NEW/EST PATIENT Routine 08/26/2024 9:00 AM EST Dental caries on smooth surface penetrating into dentin Encounter for dental examination and cleaning with abnormal findings Stage 3 grade B generalized periodontitis per AAP/EFP 2017 classification BITEWINGS - FOUR RADIOGRAPHIC IMAGES Routine 08/26/2024 9:00 AM EST Dental caries on smooth surface penetrating into dentin Encounter for dental examination and cleaning with abnormal findings Stage 3 grade B generalized periodontitis per AAP/EFP 2017 classification PROPHYLAXIS - ADULT Routine 08/26/2024 9 :00 AM EST Dental caries on smooth surface penetrating into dentin Encounter for dental examination and cleaning with abnormal findings Stage 3 grade B generalized periodontitis per AAP/EFP 2017 classification PERIODIC ORAL EVALUATION ESTABLISHED PATIENT Routine 08/26/2024 9:00 AM EST Dental caries on smooth surface penetrating into dentin Encounter for dental examination and cleaning with abnormal findings Stage 3 grade B generalized periodontitis per AAP/EFP 2017 classification PANORAMIC RADIOGRAPHIC IMAGE Routine 08/05/2024 2:20 PM EST Encounter for dental examination from Last 3 Months or Most Recently Relevant to Health Maintenance Insurance HEALTH SAFETY NET DENTAL Care Teams Hydrographic Surveyor Relationship Specialty Start Date End Date Vickie Herrmann DMD [address] [place] [address] PCP - General 11/30/20
--- OUTSIDE RECORDS SUMMARY | 2024-12-02 16:38 | XMS_ITS | Clinical Summary ---
Author Organization [facility] Address [address] [place] [address] Phone Care Team Providers Care Poker Machine Attendant Name Role Phone Lavonne Terry MD Primary Care Provider [phone] Allergies No known active allergies Medications cyclobenzaprine (FLEXERIL) 10 mg tablet Take 1 tablet (10 mg total) by mouth 2 (two) times a day if needed for muscle spasms for up to 10 days. 20 tablet 08/28/2024 Active Social History Tobacco Use Types Packs/Day Years Used Date Smoking Tobacco: Never Smokeless Tobacco: Never Tobacco Cessation:Counseling Given: Not Answered Sex and Gender Information Value Date Recorded Sex Assigned at Not on file Legal Sex Male 8:19 AM EST Gender Identity Not on file Sexual Orientation Not on file Obstetrics History Last Filed Vital Signs Vital Sign Reading Time Taken Comments Blood Pressure 138/88 08/28/2024 10:20 AM EST Pulse 80 08/28/2024 10:20 AM EST Temperature 36.8 ??C (98.2 ??F) 08/28/2024 10:[address] Respiratory Rate 16 08/28/2024 10:20 AM EST Oxygen Saturation 96% 08/28/2024 10:20 AM EST Inhaled Oxygen Concentration - - Weight 90.3 kg (199 lb) 08/28/2024 10:20 AM EST Height 160 cm (5' 3 ) 08/28/2024 10:20 AM EST Body Mass Index 35.25 08/28/2024 10:20 AM EST Plan of Treatment Health Maintenance Due Date Last Done Comments DTaP,Tdap,and Td Vaccines (1 - Tdap) 2000 Hepatitis B Vaccines (1 of 3 - 19+ 3-dose series) 2000 Cholesterol Screening (Lipid Panel) 08/24/2022 Depression Screening 08/24/2022 HIV Screening 08/24/2022 Hepatitis C Screening 08/24/2022 Social Influencers of Health Screening 08/24/2022 COVID-19 Vaccine ( - 2023-2 5 season) 2024 Influenza Vaccine (#1) 2024 HIB Vaccines Aged Out No longer eligi ble based on patient's age to complete this topic HPV Vaccines Aged Out No longer eligi ble based on patient's age to complete this topic Hepatitis A Vaccines Aged Out No long er eligible based on patient's age to complete this topic IPV Vaccines Aged Out No longer eligi ble based on patient's age to complete this topic MMR Vaccines Aged Out No longer eligi ble based on patient's age to complete this topic Meningococcal ACWY Vaccine Aged Out N o longer eligible based on patient's age to complete this topic Meningococcal B Vacine Aged Out No lo nger eligible based on patient's age to complete this topic Pneumococcal Vaccine: Pediat rics (0 to 5 Years) and At-Risk Patients (6 to 64 Years) Aged Out No longer eligible b ased on patient's age to complete this topic RSV Immunization Patients Un jeannette 20 months Aged Out No longer eligible b ased on patient's age to complete this topic Varicella Vaccines Aged Out No longer eligible based on patient's age to complete this topic Insurance PLAN Care Teams Poker Machine Attendant Relationship Specialty Start Date End Date Lavonne Terry MD [address] [place] [address] , [address] [facility] D[facility]A: [facility] PCP - General Internal Medicine 08/28/24
== END 2024-12-02 16:14 | disposition home or self-care (01) ==
LOC: HO.HGI 15:32
PROVIDERS: PCP Internal Medicine; Visit Provider Internal Medicine
DX: R10.9 Unspecified abdominal pain (principal); K63.9 Disease of intestine, unspecified; K22.70 Barrett's esophagus without dysplasia; K44.9 Diaphragmatic hernia without obstruction or gangrene; K21.9 Gastro-esophageal reflux disease without esophagitis; J39.2 Other diseases of pharynx
CPT/HCPCS: 99214

== ENCOUNTER → 2024-12-02 15:31 | Outpatient (BNVA) | payer OTHER, SELFPAY | PROVIDERS: PCP Internal Medicine; Visit Provider Internal Medicine | DX: R10.9 Unspecified abdominal pain (principal); K21.9 Gastro-esophageal reflux disease without esophagitis; K63.9 Disease of intestine, unspecified; K22.70 Barrett's esophagus without dysplasia; K44.9 Diaphragmatic hernia without obstruction or gangrene; J39.2 Other diseases of pharynx | CPT/HCPCS: 99212 ==

== ENCOUNTER 2024-12-16 10:04 | Outpatient (REF) | payer OTHER, SELFPAY | END 2024-12-16 10:05 | disposition home or self-care (01) | LOC: HO.XRAY 10:04 | PROVIDERS: Visit Provider Surgery | DX: Z13.89 Encounter for screening for other disorder (principal) ==

== ENCOUNTER 2024-12-27 13:49 | Outpatient (AMB) | payer OTHER, SELFPAY ==
--- NOTE | 2024-12-27 13:51 | A.OFFVIS_ITS ---
Vital Signs 12/27/24 13:55 Height 5 ft 4 in Weight 203 lb BMI 34.8 Intake Visit Reasons: OV- Left thumb ROM check Intake Note: Zeyad 43 yr old male presents today for his follow up visit for his left thumb IP joint pain. States his pain has improved since using his splint that was given by O.T. Currently states he has wrist pain with heavy lifting and when bending at his wrist. He also mentioned he has left shoulder pain. He is aware Dr Ingram doesn't see shoulders. Mental Telepathist Required: Yes Mental Telepathist Language: Glass Blowing Instructor Services: Mental Telepathist Present Mental Telepathist Name: FatoumataNIKI/STANLEY Allergies gluten Allergy (Mild, Verified 12/27/24 13:56) stomach pains HPI HPI OV- Left thumb ROM check : Details: Zeyad is a 43 year old right hand dominant Latvian speaking man who returns for a ROM check of his left thumb, S/P volar plate injury from a fall, DOI: ~07/2024. He fell on ice in ~07/2024, landing on his left side and injuring his thumb. He says in regards to his thumb he is doing better. He says that he wore his custom splint made for him by OT for about 2 weeks. He complains of pain & weakness in his wrist when attempting heavy lifting activities, like lifting a heavy bag of laundry to carry over shoulder.. He has not attended OT hand therapy after they made his custom splint for him. He also complains of pain in his left shoulder and chest since he fell onto his left side on the ice. [facility] Medical History Diaphragmatic hernia GERD (gastroesophageal reflux disease) Anxiety Polyarthralgia Tremor Dysphagia History of substance abuse Moderate depressive disorder Back pain Surgical History Hx of colonoscopy History of left inguinal hernia repair (02/03/19) History of nasal septoplasty History of excision of mass History of appendectomy History of open reduction and internal fixation (ORIF) procedure Family History Mother No problems noted. Father Prostate cancer Diverticula of colon Paternal Grandmother Pancreatic cancer Maternal Grandmother Breast cancer Son Autism Son No problems noted. Daughter No problems noted. 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 His left thumb MCP joint be brought into Hyperextension of ~5-10 degrees, and is somewhat painful with this hyperextension. His uninjured right thumb MCP joint is flexed ~5 degrees away from full extension. This is his presumed normal thumb. Good left thumb MCP joint UCL & RCL function. No laxity, good end points. Radiographs: 3 views of the left hand from 09/30/24 were reviewed by me today in clinic. They show no fractures or dislocations. Assessment & Plan Assessment & Plan (1) Injury of volar plate of metacarpophalangeal (MCP) joint of thumb: Code(s): S69.90XA - Unspecified injury of unspecified wrist, hand and finger(s), initial encounter Category: Medical (2) Hyperextension injury of thumb: Code(s): S69.80XA - Other specified injuries of unspecified wrist, hand and finger(s), initial encounter Category: Medical Plan Assessment & Plan: 1. Left thumb MCP volar plate injury From a fall on ice, DOI: ~07/2024 2. Left wrist pain From a fall, DOI on ice: ~07/2024 No fractures. He has discovered that he has pain when he tries to lift a heavy laundry bag. He feels his thumb has improved overall. He does get a little frustrated when he tries to grab heavy objects and finds and he has some pain in his left thumb and wrist, as well as his shoulder. I discussed activity modification, he is to minimize any hyperextension motions of his left thumb at this time It sounds like he wore his custom thumb spica splint for only a couple of weeks. He might find it helpful to use it for now with heavy activities, such as when at work. He should remove this when at rest. I ordered OT hand therapy to work on normalizing function & strengthening of his wrist & thumb He will follow up prn He will make an appointment to be seen for his left shoulder pain by one of our Orthopedic specialists. Scribed for Deanna Ingram MD by Dante Sims, pediatrician/medical doctor, on 12/27/24 at 2:15 PM, EST. Orders: Orders OT Evaluation and Treatment Today M25.532 - Pain in left wrist, S69.80XA - Other specified injuries of unspecified wrist, hand and finger(s), initial encounter, S69.90XA - Unspecified injury of unspecified wrist, hand and finger(s), initial encounter Coding Level of Care Code Est Pt Level 4 (01172) Diagnoses Injury of volar plate of metacarpophalangeal (MCP) joint of thumb S69.90XA Hyperextension injury of thumb S69.80XA
[2024-12-27 13:55] VITALS: BMI 34.8
--- OUTSIDE RECORDS SUMMARY | 2024-12-27 16:53 | XMS_ITS | Clinical Summary ---
Author Organization [facility] Address [address] [place] [address] Care Team Providers Care Yard Warehouse Worker Name Role Phone Vickie Herrmann DMD Primary Care Provider [phone] Source Comments PLEASE NOTE, if this patient [...] Health Maintenance Due Date Last Done Comments Anxiety Screening 1981 Diabetes Screening 1981 Hepatitis C Screening 1981 Lipid Screening 1981 HIV Screening 1996 Imm-DTaP/Tdap/Td (1 - Tdap) 2000 Imm-Hepatitis B (1 of 3 - 19 + 3-dose series) 2000 Hypertension Screening (#1) 08/08/2023 [id number] (1 season) 2024 Imm-Influenza (#1) 2024 Alcohol and [...] Insurance HEALTH SAFETY NET DENTAL Care Teams Yard Warehouse Worker Relationship Specialty Start Date End Date Vickie Herrmann DMD [address] [place] [address] PCP - General 11/30/20
--- OUTSIDE RECORDS SUMMARY | 2024-12-27 16:53 | XMS_ITS | Encounter Summary ---
Author Organization [facility] Address [address] [place] [address] Care Team Providers Care Skimmer Name Role Phone Vickie Herrmann DMD Primary Care Provider [phone] Encounter Details Date Type Department Care Team (Late st Contact Info) Description 02/15/2022 Dental Interim Note On License Of [facility] Main Dental [address] [place] [address] Neeru Llamas Y [address] [place], [place] [phone] Social History Tobacco Use Types Packs/Day Years [...] on filedocumented in this encounter Care Teams Skimmer Relationship Specialty Start Date End Date Vickie Herrmann DMD [address] [place] [address] PCP - General 11/30/20 documented as of this encounter
--- OUTSIDE RECORDS SUMMARY | 2024-12-27 16:53 | XMS_ITS | Clinical Summary ---
Author Organization [facility] Address [address] [place] [address] Phone Care Team Providers Care Health Diagnostics Teacher Name Role Phone Lavonne Terry MD Primary Care Provider [phone] Allergies No known active allergies Medications cyclobenzaprine [...] age to complete this topic Meningococcal B Vaccine Aged Out No l onger eligible based on patient's age to complete [...] age to complete this [place] [address] Care Teams Health Diagnostics Teacher Relationship Specialty Start Date End Date Lavonne Terry MD [address] [place] [address] , [address] [facility] D/B/A: [facility] [place] [facility] PCP - General Internal Medicine 08/28/24
== END 2024-12-27 14:42 | disposition home or self-care (01) ==
LOC: HO.HOS 13:49
PROVIDERS: PCP Internal Medicine; Visit Provider Orthopaedic Surgery
DX: S69.82XA Other specified injuries of left wrist, hand and finger(s), initial encounter (principal)
CPT/HCPCS: 99213

== ENCOUNTER → 2024-12-27 13:49 | Outpatient (BNVA) | payer OTHER, SELFPAY | PROVIDERS: PCP Internal Medicine; Visit Provider Orthopaedic Surgery | DX: S69.92XD Unspecified injury of left wrist, hand and finger(s), subsequent encounter (principal); S69.81XD Other specified injuries of right wrist, hand and finger(s), subsequent encounter | CPT/HCPCS: 99212 ==

== ENCOUNTER 2025-01-02 11:03 | Outpatient (AMB) | payer OTHER, SELFPAY ==
--- NOTE | 2025-01-02 10:47 | MHC.OFFVISWM ---
VS Expanded 01/02/25 10:48 Height 5 ft 4 in Weight 200 lb BMI 34.3 Intake Visit Reasons: TV Pre Op Diaphrag. 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*: Details: Start time: 10.35am, End time: 11.05am ?I spent 25 minutes speaking with the patient on the phone plus an additional 5 minutes reviewing and updating records for a total of 30 minutes HPI Comments Details: This is the preoperative appointment for laparoscopic diaphragmatic hernia [facility] Medical History Diaphragmatic hernia GERD (gastroesophageal reflux disease) Anxiety Polyarthralgia Tremor Dysphagia History of substance abuse Moderate depressive disorder Back pain Surgical History Hx of colonoscopy History of left inguinal hernia repair (02/03/19) History of nasal septoplasty History of excision of mass History of appendectomy History of open reduction and internal fixation (ORIF) procedure Family History Mother No problems noted. Father Prostate cancer Diverticula of colon Paternal Grandmother Pancreatic cancer Maternal Grandmother Breast cancer Son Autism Son No problems noted. Daughter No problems noted. 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 Current occupational exposures/hazards: No Cognitive needs: No Hearing needs: No Vision needs: No Telehealth Telehealth Telehealth Platform: Telephone Location of provider rendering services: practice address Location of patient: address on file Patient Identification confirmed using: Name, : Yes Telehealth method: voice only Patient verbally consented to treatment: Yes Patient verbally consented to billing insurance company: Yes Patient informed of any privacy concerns related to visit: Yes Minutes spent on Phone/Video with Pt.: 30 Assessment & Plan Assessment & Plan (1) Diaphragmatic hernia: Code(s): K44.9 - Diaphragmatic hernia without obstruction or gangrene Category: Medical Qualifiers: Obstruction and gangrene presence: without obstruction or gangrene Qualified Code(s): K44.9 - Diaphragmatic hernia without obstruction or gangrene Plan: 1. We discussed the potential etiology of the hernia. We discussed the details of the diaphragmatic hernia repair and the potential technical challenges such as being able to achieve enough mobilization of the esophagus back in the abdomen and being able to close the diaphragmatic muscle (crura) primarily with sutures. We also discussed the possibility of using a biologic mesh to close the hernia defect if the crura cannot be adequately re-approximated primarily with sutures. We also discussed the option of doing a gastropexy or a fundoplication to prevent postoperative reflux and prevent hernia recurrence. As we discussed, I favor the gastropexy as the fundoplication can cause several distrurbing symptoms such as gas-bloating, flatulence, inability to burp which can be bothersome to patients. Also we discussed the complexity of a potential hernia recurrence in association with a hernia recurrence. He was in agreement not to have a fundoplication. We also discussed that after surgery, he will need to be on a liquid diet with protein shakes the first week. The second week will add protein bars and soft foods and after the third week we will introduce small amounts of regular food. The transition to normal eating habits will take about 6 weeks which is the time required for the repair to heal completely. 2. Preop prescriptions were provided and explained the purpose of each one. Need to be purchased preop. Start Pantoprazole now as you get it from the pharmacy, 1 pill per day. Sucralfate and Zofran are for after surgery as needed. 3. Bowel prep: please do 7 packets ?of Miralax mixing each one with a an 8oz glass of water, crystal light, gatorade zero, or propel ?on 01/08/25 and the same amount on 01/09/25. The Miralax you begin with one packet at a time in 8oz water or crystal light, gatorade zero, or propel ?as early in the day as you can and you do them back to back until you finish them. Continue the protein shakes during ?the bowel prep. 4. Needs to purchase 1oz medicine cups . 5. Needs to purchase Children's liquid Tylenol for postop pain control. 6. He needs to stop the Ibuprofen as of tomorrow. Avoid aspirin, motrin, Advil, Aleve, Meloxicam, Excedrin, Ibuprofen, Naproxyn. Tylenol is OK. 7. He needs to purchase the Celebrate REBUILD protein shakes from the hospital's gift shop, chewable or pills whatever you prefer. 8. Will do basic preop blood work-up any day between Thursday01/03/25 and Thursday01/06/25 fasting for 12 hours and is scheduled to see the Anesthesiologist prior to the day of surgery. 9. Importance of adherence to postop folllow-up and recommendations was underscored and he understands that. 10. Stop food and bars as of Thursday01/04/25 and continue 3 Celebrate REBUILD protein shakes (ONE scoop EACH in 8oz almond milk) at 6am-8am, 9am-11am and 12pm-2pm and TWO more Celebrate REBUILD protein shakes with TWO scoops in 12oz of almond milk at 3pm-6pm and 7pm-10pm 11. No soups, broths or V8 12. The patient's?medical?history has been reviewed and they are considered low risk for post op DVT and therefore DVT prophylaxis is not considered necessary. Travel after surgery was reviewed. The patient has not disclosed any travel plans during the first 30 days after surgery and they have been advised that within the first 30 days after surgery any bus, plane, train or car travel over 2 hours in duration is contraindicated due to the possibility of developing blood clots from immobility. Any travel, needs to include periods of ambulation of 10 minutes in duration every 2 hours.? Patient was instructed to discuss any plans for travel during this period with their bariatric surgeon.? 13. Please take at the day of surgery the following medications: NONE 14. Absolutely no smoking or vaping, or marijuana until the surgery and for at least the first 4 weeks. Only nicotine patches are allowed. 15. Avoid any steroids by mouth for any reason. Let me know if someone prescribes them to you Orders: Orders Comprehensive Met. Panel Today Z01.818 - Encounter for other preprocedural examination TSH reflex Free T4 Today Z - Encounter for other preprocedural examination Prothrombin Time INR Today Z81 - Encounter for other preprocedural examination C Reactive Protein Today Z81 - Encounter for other preprocedural examination Lipid Panel Today Z81 - Encounter for other preprocedural examination Type and Screen Today Z81 - Encounter for other preprocedural examination Partial Thromboplastin Time Today Z81 - Encounter for other preprocedural examination Complete Blood Count Auto Diff Today Z - Encounter for other preprocedural examination Medications: New pantoprazole 40 mg PO DAILY 90 tabs 0RF K21.9 - Gastro-esophageal reflux disease without esophagitis sucralfate 10 mL PO BID 600 mL 2RF K21.9 - Gastro-esophageal reflux disease without esophagitis ondansetron Only take one every 12 hours as needed if you have nausea 4 mg PO Q12H 20 tabs 0RF nausea and vomiting R11.0 - Nausea polyethylene glycol 3350 Mix each measuring cup with 8oz of water, Crystal light, or Gatorade zero, or Propel and do 7 measuring cups on 01/08/25 and another 7 measuring cups on 01/09/25 17 grams PO DAILY 238 grams 0RF Z.818 - Encounter for other preprocedural examination
[2025-01-02 10:48] VITALS: BMI 34.3
--- OUTSIDE RECORDS SUMMARY | 2025-01-02 13:07 | XMS_ITS | Encounter Summary ---
Author Organization [facility] Address [address] [place] [address] Care Team Providers Care Trouble Shooter Name Role Phone Vickie Herrmann DMD Primary Care Provider [phone] Encounter Details Date Type Department Care Team (Late st Contact Info) Description 02/15/2022 Dental Interim Note [facility] Main Dental [address] [place] [address] [address] Llamas [address] [place], [place] [id number] Social History Tobacco Use Types Packs/Day Years [...] on filedocumented in this encounter Care Teams Trouble Shooter Relationship Specialty Start Date End Date Vickie Herrmann DMD [address] [place] [address] PCP - General 11/30/20 documented as of this encounter
--- OUTSIDE RECORDS SUMMARY | 2025-01-02 13:07 | XMS_ITS | Clinical Summary ---
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 Leveler Name Role Phone Lavonne Terry MD Primary Care Provider [phone] Allergies No known active allergies Medications cyclobenzaprine [...] Influencers of Health Screening 08/24/2022 COVID-19 Vaccine (2023-2 5 season) 2024 Influenza Vaccine (Season Ended) 2025 HIB Vaccines Aged Out No longer eligi [...] complete this topic Insurance PLAN Care Teams Printed Circuit Boards Solder Leveler Relationship Specialty Start Date End Date Lavonne Terry MD [address] [place] [address] , [address] [facility] D/B/A: [facility] [employer] [facility] PCP - General Internal Medicine 08/28/24
== END 2025-01-02 11:07 | disposition home or self-care (01) ==
LOC: HO.HBS 11:03
PROVIDERS: PCP Internal Medicine; Visit Provider Surgery
DX: K44.9 Diaphragmatic hernia without obstruction or gangrene (principal)
CPT/HCPCS: 99499

== ENCOUNTER 2025-01-05 15:35 | Outpatient (AMB) | payer OTHER, SELFPAY ==
--- NOTE | 2025-01-05 16:00 | A.OFFPC_ITS ---
Vital Signs 01/05/25 16:01 Height 5 ft 4 in Weight 215 lb BMI 36.9 BP 120/78 Blood Pressure Location Lt brachial Position Sitting Intake Visit Reasons: Physical Exam Intake Note: Patient here for a physical exam Sales And Service Consultant Required: No Accompanied by: Self / Same As Patient Allergies gluten Allergy (Mild, Verified 01/05/25 16:17) stomach pains Medication List - Last Reconciled 01/05/25 by Lavonne Terry MD ibuprofen 800 mg PO Q8H PRN 30 days levocetirizine (24HR Allergy Relief) 5 mg PO DAILY 90 days omeprazole 20 mg PO DAILY 90 days ondansetron 4 mg PO Q12H pantoprazole 40 mg PO DAILY polyethylene glycol 3350 17 grams PO DAILY sucralfate 10 mL PO BID Tobacco use date assessed: 01/05/25 Dental Screening Dental Screen Date: 01/05/25 Did you have a dental visit in the last 12 months?: No Did you have a dental problem in the last 6 months where you did not have access to dental care?: No Was dental information given to patient?: Patient has dentist HPI HPI Comments History of Present Illness Details The patient is a 44-year-old male presenting for his physical exam. He has Everett's esophagus. He manages ongoing symptoms of gastroesophageal reflux disease, evidenced by the chronic use of proton pump inhibitors. He was diagnosed and is being monitored for Everett's esophagus with periodic endoscopies, the last of which took place the previous year with a follow-up scheduled. His symptoms of acid reflux and indigestion persist, though dietary modifications have offered some amelioration. He has undergone significant medical procedures including an inguinal hernia repair and nasal septoplasty. 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 The patient acknowledges mild depression issues potentially compounded by a complex marital relationship and familial arrangements. This context is reinforced against a background of previous unhealthy lifestyle choices?cessation of smoking and alcohol use, possibly influencing both physical and mental health. - Tetanus vaccine administered in 2015, booster planned for next year. - Endoscopy planned next week for contin ued monitoring of Everett's esophagus. - Upcoming orthopedic evaluation for martha nt and shoulder issues following a fall. - Continuous assessment of mild depressi on with PHQ-9 score monitoring. - Family history of prostate cancer ackn owledged; anticipatory discussions about PSA monitoring. - Dietary modifications ongoing for GERD management, including restricting food intake three hours before sleep. [facility] Medical History (Updated 01/05/25 @ 16:36 by Lavonne Terry MD) Diaphragmatic hernia GERD (gastroesophageal reflux disease) Anxiety Polyarthralgia Tremor Dysphagia History of substance abuse Moderate depressive disorder Back pain Surgical History Hx of colonoscopy History of left inguinal hernia repair (02/03/19) History of nasal septoplasty History of excision of mass History of appendectomy History of open reduction and internal fixation (ORIF) procedure Family History Mother No problems noted. Father Prostate cancer Diverticula of colon Paternal Grandmother Pancreatic cancer Maternal Grandmother Breast cancer Son Autism Son No problems noted. Daughter No problems noted. 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 1. Little interest or pleasure in doing things: several days 2. Feeling down, depressed, or hopeless: not at all 3. Trouble falling or staying asleep, or sleeping too much: not at all 4. Feeling tired or having little energy: several days 5. Poor appetite or overeating: not at all 6. Feeling bad about yourself - or that you are a failure or have let yourself or your family down: not at all 7. Trouble concentrating on things, such as reading the newspaper or watching television: not at all 8. Moving or speaking so slowly that other people could have noticed. Or the opposite - being so fidgety or restless that you have been moving around a lot more than usual: several days 9. Thoughts that you would be better off or of hurting yourself in some way: not at all Total score: 3 Depression Screening Interpretation: Positive Depression Screening Follow-up: Existing condition, Community Mental Health Worker F/U and Follow-up Visit Requested Depression Screening Done: Yes 23220 - PHQ-9 Billing: Yes Source: Developed by Drs. Prince Cornell, Katie May, Valdo Barrow and colleagues, with an educational [place] from [employer]. Thrive Questionnaire Date Thrive assessed: 01/05/25 I am a: Patient What is your living situation today?: I have a place to live, but I am worried about losing it in the future Within the past 12 months, did the food you bought not last and you didn't have the money to get more?: Sometimes True Within the past 12 months, did you worry whether your food would run out before you got money to buy more?: Sometimes True Do you have trouble paying for medicines?: Yes Do you have trouble getting transportation to medical appointments?: No Do you have trouble paying your heating and electricity bill?: No Do you have trouble taking care of your child, family member or friend?: No Do you have trouble with day-to-day activities such as bathing, preparing meals, shopping, managing finances, etc.?: No Are you currently unemployed and looking for a job?: No Are you interested in more education?: Yes Please select the resources that you would like help with: Housing/Halfway Currently or been in a relationship where the following occur: I choose not to answer THRIVE Score: 3 AUDIT C Alcohol Use Questionnaire (AUDIT-C) 1. How often do you have a drink containing alcohol?: Never Total Score: 0 Score Reviewed/Action Taken: No KEELY-7 AMB Questionnaire KEELY-7 Date KEELY - 7 assessed: 01/05/25 Feeling nervous, anxious, or on edge: 0 = Not at all Not being able to stop or control worryin = Several days Worrying too much about different things: 1 = Several days Trouble relaxin = Not at all Being so restless that it is hard to sit still: 0 = Not at all Becoming easily annoyed or irritable: 0 = Not at all Feeling afraid as if something awful might happen: 0 = Not at all Total KEELY-7 score (0-4 normal; 5-9 mild; 10-14 moderate; 15-21 severe): 2 Source: Developed by Drs. Prince Cornell, Katie May, Valdo layne nd colleagues, with an educational [place] from [employer]. KEELY-7 Assessment Billing KEELY-7 Assessment Tool: KEELY-7 Assessment 89147 Review of Systems Const All systems reviewed & are unremarkable except as noted in HPI and below Card Denies chest pain at rest, Denies chest pain with activity, Denies edema, Denies irregular heart rhythm, Denies claudication, Denies dyspnea, Denies dyspnea on exertion, Denies orthopnea, Denies paroxysmal nocturnal dyspnea and Denies slow heart rate Resp Denies cough, Denies dyspnea and Denies dyspnea on exertion GI Denies abdominal pain, Denies change in bowel habits, Denies excessive flatus, Denies nausea and Denies vomiting Physical exam (Primary Care) Vital Signs: Last Vital Signs BP 120/78 01/05/25 16:01 BMI result Body Mass Index 36.9 Tobacco/Smoking Status: Tobacco use Status Tobacco use date assessed 01/05/25 01/05/25 16:07 Patient Tobacco Use Status Former Tobacco user 01/05/25 16:07 Tobacco use type Cigarette 01/05/25 16:07 e-Cigarette/Vaping Use Never Used 01/05/25 16:07 PHQ-9: PHQ-9 Score PHQ-9: Total score 3 01/05/25 16:07 Depression Screening Interpretation: Positive Depression Screening Follow-up: Existing condition, Community Mental Health Worker F/U and Follow-up Visit Requested Thrive Assessment: Date of Thrive Assessment Date Thrive assessed 01/05/25 01/05/25 16:07 Currently or been in a relationship where the following occur: I choose not to answer HENMT Head: Yes normal to inspection, Yes normocephalic and Yes atraumatic Ears: external ears normal Eyes General: appearance normal, both eyes and all related structures Eyelids: Yes eyelids normal Conjunctivae: conjunctivae normal Neck Neck: Yes normal visual inspection and Yes supple Resp Effort & Inspection: normal respiratory effort Auscultation: clear to auscultation bilaterally Cardio Jugular venous distension: no JVD Rate: regular rate Rhythm: regular rhythm Heart sounds: S1 normal heart sound present and S2 normal heart sound present GI Inspection: Yes normal to inspection Palpation (GI): Soft to palpation and nontender Auscultation: normal bowel sounds Skin General skin exam: no rashes or lesions noted Neuro General: no focal motor deficits Extrem General: Yes full ROM Psych Appearance: grossly normal Coding Level of Care Code Est Pt Level 3 (19504) Est Pt Prev Care 40-64y(57872) Diagnoses Physical exam Z00.00 Multiple lipomas D17.9 Additional Codes PHQ-9 - 39260 - PHQ-9 Billing: Yes ([id number]) KEELY-7 Assessment Billing - KEELY-7 Assessment Tool: KEELY-7 Assessment 78999 ([id number]) Time Spent (min) 33 Assessment & Plan Assessment & Plan (1) Physical exam: Code(s): Z00.00 - Encounter for general adult medical examination without abnormal findings Category: Medical (2) Multiple lipomas: Code(s): D17.9 - Benign lipomatous neoplasm, unspecified Category: Medical Plan For Everett's esophagus, the management follows with pantoprazole as the primary medication. An endoscopic evaluation is imminent to assess mucosal lining health. Concurrently, musculoskeletal follow-ups address post-fall complications. psychiatric evaluation for depression, although mild, maintains monitoring protocols?especially considering social stressors at home. Continuous lifestyle habit revision targets digestive comfort alongside ongoing clinical assessments of overall wellbeing. Patient was informed and verbally consented to the use of an ambient scribe for clinic note documentation during this visit. I discussed the implications of Everett's esophagus with the patient, emphasizing ongoing proton pump inhibitor use and future endoscopic examination for preventative monitoring. The patient's musculoskeletal discomfort from a previous fall requires orthopedic follow-up, during which therapeutic measures including NSAIDs or physical therapy may be revisited. Regarding mild depression, I suggested ongoing depressant screening through PHQ-9 and potential counseling as practical steps to tackle its relation to personal life challenges. Comprehensive discussion on familial cancer risks with attention towards timely screenings was provided. Orders: Orders Comprehensive [place]. Panel Fast Today Z00.00 - Encounter for general adult medical examination without abnormal findings Lipid Panel Today Z00.00 - Encounter for general adult medical examination without abnormal findings Referrals General Surgery Referral D17.9 - Benign lipomatous neoplasm, unspecified Medications: Discontinued omeprazole Discontinued Reason: Patient Completed Course 20 mg PO DAILY 90 days 90 caps 1RF Patient Instructions: - Continue taking pantoprazole as prescribed for acid reflux. - Attend scheduled endoscopy next week. - Avoid eating foods three hours before sleep to help manage GERD. - Follow up with orthopedics for evaluation of shoulder, wrist, and thumb. - Maintain awareness of depression symptoms and seek support as needed.
[2025-01-05 16:01] VITALS: BP 120/78; BMI 36.9
--- OUTSIDE RECORDS SUMMARY | 2025-01-05 18:06 | XMS_ITS | Clinical Summary ---
Author Organization [facility] Address [address] [place] [address] Care Team Providers Care Chute Loader Name Role Phone Vickie Herrmann DMD Primary Care Provider [phone] Source Comments PLEASE NOTE, if this patient [...] 3-dose series) 2000 Hypertension Screening (#1) 08/08/2023 [id number] (1 season) 2024 Imm-Influenza (#1) 2024 Alcohol [...] Insurance HEALTH SAFETY NET DENTAL Care Teams Chute Loader Relationship Specialty Start Date End Date Vickie Herrmann DMD [address] [place] [address] PCP - General 11/30/20
--- OUTSIDE RECORDS SUMMARY | 2025-01-05 18:06 | XMS_ITS | Clinical Summary ---
Author Organization [facility] Address [address] [place] [address] Phone Care Team Providers Care Submarine Element Coordinator Name Role Phone Lavonne Terry MD Primary Care Provider [phone] Allergies No known active allergies Medications cyclobenzaprine [...] complete this topic Insurance PLAN Care Teams Submarine Element Coordinator Relationship Specialty Start Date End Date Lavonne Terry MD [address] [place] [address] , [address] [facility] D/B/A: [facility] [place] [facility] PCP - General Internal Medicine 08/28/24
--- OUTSIDE RECORDS SUMMARY | 2025-01-05 18:06 | XMS_ITS | Encounter Summary ---
Author Organization [facility] Address [address] [place] [address] Care Team Providers Care Coat Checker Name Role Phone Vickie Herrmann DMD Primary Care Provider [phone] Encounter Details Date Type Department Care Team (Late st Contact Info) Description 02/15/2022 Dental Inter[facility] Main Dental [address] [place] [address] Neer[address] Llamas [address] [place], [place] [id number] Social History Tobacco Use Types Packs/Day Years [...] on filedocumented in this encounter Care Teams Coat Checker Relationship Specialty Start Date End Date Vickie Herrmann DMD [address] [place] [id number] PCP - General 11/30/20 documented as of this encounter
== END 2025-01-05 16:34 | disposition home or self-care (01) ==
LOC: HO.HMCH 15:36
PROVIDERS: PCP Internal Medicine; Visit Provider Internal Medicine
DX: Z00.00 Encounter for general adult medical examination without abnormal findings (principal); D17.9 Benign lipomatous neoplasm, unspecified

== ENCOUNTER → 2025-01-05 15:35 | Outpatient (BNVA) | payer OTHER, SELFPAY | PROVIDERS: PCP Internal Medicine; Visit Provider Internal Medicine | DX: Z00.01 Encounter for general adult medical examination with abnormal findings (principal); D17.9 Benign lipomatous neoplasm, unspecified; K22.70 Barrett's esophagus without dysplasia | CPT/HCPCS: 96127; 99212; 99396 ==

== ENCOUNTER → 2025-01-06 09:21 | Outpatient (BNV) | payer OTHER, SELFPAY | PROVIDERS: Admitting Provider Surgery; PCP Internal Medicine; Visit Provider Internal Medicine Cardiovascular Disease | DX: Z01.810 Encounter for preprocedural cardiovascular examination (principal) | CPT/HCPCS: 93010 ==

== ENCOUNTER 2025-01-10 08:21 | Inpatient (IN) | payer OTHER, SELFPAY ==
[2025-01-05 09:52] VITALS: BMI 34.3
--- NOTE | 2025-01-05 13:21 | HO.ANESPROP2 ---
Documented by User: Savannah Torres NP 01/06/25 12:13 HPI - Anesthesia Eval Consult details Narrative: 44yo M for Hernia Diaphragmatic Lap Reducible PMFSH Active Problems Active Problems: All Active Problems Left wrist pain (Acute) Dry throat (Acute) Injury of volar plate of metacarpophalangeal (MCP) joint of thumb (Acute) Hyperextension injury of thumb (Acute) Pain of left thumb (Acute) Thickened small bowel (Acute) Everett esophagus (Acute) Left elbow pain (Acute) Left hand pain (Acute) Lumbar pain (Acute) Neck pain (Acute) Left shoulder pain (Acute) Diaphragmatic hernia (Acute) GERD (gastroesophageal reflux disease) (Acute) Preprocedural examination (Acute) Abnormal barium swallow (Acute) Abdominal pain (Acute) Weak urinary stream (Acute) Dysphagia (Acute) Weight loss (Acute) Clavicle enlargement (Acute) Urinary retention (Acute) Tremors of nervous system (Acute) Cramps, extremity (Acute) Epigastric pain (Acute) Family history of colon cancer (Acute) Physical exam (Acute) Left ankle sprain (Acute) Lipoma of left shoulder (Acute) Myofascial muscle pain (Acute) Trapezius muscle strain (Acute) Polyarthralgia (Acute) Mass in neck (Acute) Right shoulder pain (Acute) Left shoulder pain (Acute) Pain of left clavicle (Acute) Bilateral ankle pain (Acute) Thoracic spine pain (Acute) NSAID long-term use (Acute) Bright red rectal bleeding (Acute) LUQ abdominal tenderness (Acute) Blood in stool (Acute) Moderate anxiety (Acute) Screen for STD (sexually transmitted disease) (Acute) Lipoma of arm (Acute) Left ankle pain (Acute) Moderate depressive disorder (Acute) Back pain (Acute) Past Medical History Medical History Diaphragmatic hernia GERD (gastroesophageal reflux disease) Anxiety Polyarthralgia Tremor Dysphagia History of substance abuse Moderate depressive disorder Back pain Family History Family History Mother No problems noted. Father Prostate cancer Diverticula of colon Paternal Grandmother Pancreatic cancer Maternal Grandmother Breast cancer Son Autism Son No problems noted. Daughter No problems noted. 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 Current occupational exposures/hazards: No Cognitive needs: No Hearing needs: No Vision needs: No Meds Allergies Allergy/AdvReac Type Severity Reaction Status Date / Time gluten Allergy Mild stomach Verified 01/05/25 16:17 pains Exam Height,Weight and Vital Signs: Height 5 ft 4 in Weight 90.718 kg Pertinent Lab Results Pertinent Lab Results: Lab Results 01/06/25 01/06/25 Range/Units 09:11 09:15 WBC 6.0 (4.8-10.8) X10*3/uL RBC 5.30 (4.60-5.80) X10*6/uL Hgb 16.1 (14.0-18.0) g/dl Hct 46.2 (42.0-52.0) % MCV 87.2 (80.0-98.0) fL MCH 30.4 (27.0-33.0) pg MCHC 34.8 (31.0-36.0) g/dl RDW 11.9 (11.0-16.0) % Plt Count 222 (160-400) X10*3/uL MPV 10.2 (9.4-12.4) fL Immature Gran % (Auto) 0.3 (0.0-0.4) % Neut % (Auto) 70.1 (45-73) % Lymph % (Auto) 18.3 L (20-40) % Monona % (Auto) 7.0 (2-11) % Eos % (Auto) 3.3 (0-4) % Baso % (Auto) 1.0 (0-2) % Lymph # (Auto) 1.1 L (1.2-4.9) X10*3/uL Mon[place] # (Auto) 0.4 (0.1-1.2) X10*3/uL Eos # (Auto) 0.2 (0.0-0.4) X10*3/uL Baso # (Auto) 0.1 (0.0-0.2) X10*3/uL Abs Immat Gran (auto) 0.02 (0.00-0.03) X10*3/uL Absolute Neuts (auto) 4.2 (2.0-8.3) x10*3/uL Absolute Nucleated RBC 0.000 (0.0-0.012) X10*3/uL Nucleated RBC % (auto) 0.0 (0.0-0.2) /100WBC PT 12.9 H (10.9-12.4) SEC INR 1.1 (0.9-1.1) APTT 32.7 (26.0-36.8) SEC Sodium 140 (135-145) mmol/L Potassium 4.0 (3.3-5.1) mmol/L Chloride 105 (96-108) mmol/L Carbon Dioxide 29 (22-29) mmol/L Anion Gap 10 L (12-20) BUN 23 H (9-16) mg/dL Creatinine 0.76 (0.5-1.4) mg/dL Estim Creat Clear Calc 127.2 Estimated GFR > 60 Random Glucose 96 (60-115) mg/dL Calcium 9.2 (8.4-10.2) mg/dL Total Bilirubin 1.2 H (0.0-1.0) mg/dL AST 20 (5-37) U/L ALT 21 (0-40) U/L C-Reactive Protein 3.47 H (< or = 0.50) mg/dL Total Protein 7.1 (6.5-8.0) g/dL Albumin 4.2 (3.5-5.0) g/dL Triglycerides 119 (<150) mg/dL Cholesterol 198 (<200) mg/dL LDL Cholesterol, Calc 136 H (<100) mg/dL HDL Cholesterol 39 L (>40) mg/dL TSH 1.09 (0.32-4.0) uIU/mL Blood Type A Positive Antibody Screen NEGATIVE Narrative Narrative: EKG 12/2024 Vent. Rate : 63 BPM Atrial Rate : 63 BPM P-R Int : 146 ms QRS Dur : 92 ms QT Int : 400 ms P-R-T Axes : 43 12 22 degrees QTcB Int : 409 ms Normal sinus rhythm Normal ECG No previous ECGs available Assessment and Plan Assessment Anesthesia Assessment: Chart Reviewed Final Anesthetic Review Family History of Problems with Anesthesia: No History of Problems with Anesthesia: No Documented by User: Soha Vinson MD 01/10/25 11:51 HPI - Anesthesia Eval Consult details Narrative: 44yo M for EGD, Laparoscopic repair of Reducible Diaphragmatic Hernia PMFSH Active Problems Active Problems: All Active Problems Left wrist pain (Acute) Dry throat (Acute) Injury of volar plate of metacarpophalangeal (MCP) joint of thumb (Acute) Hyperextension injury of thumb (Acute) Pain of left thumb (Acute) Thickened small bowel (Acute) Everett esophagus (Acute) Left elbow pain (Acute) Left hand pain (Acute) Lumbar pain (Acute) Neck pain (Acute) Left shoulder pain (Acute) Diaphragmatic hernia (Acute) GERD (gastroesophageal reflux disease) (Acute) Preprocedural examination (Acute) Abnormal barium swallow (Acute) Abdominal pain (Acute) Weak urinary stream (Acute) Dysphagia (Acute) Weight loss (Acute) Clavicle enlargement (Acute) Urinary retention (Acute) Tremors of nervous system (Acute) Cramps, extremity (Acute) Epigastric pain (Acute) Family history of colon cancer (Acute) Physical exam (Acute) Left ankle sprain (Acute) Lipoma of left shoulder (Acute) Myofascial muscle pain (Acute) Trapezius muscle strain (Acute) Polyarthralgia (Acute) Mass in neck (Acute) Right shoulder pain (Acute) Left shoulder pain (Acute) Pain of left clavicle (Acute) Bilateral ankle pain (Acute) Thoracic spine pain (Acute) NSAID long-term use (Acute) Bright red rectal bleeding (Acute) LUQ abdominal tenderness (Acute) Blood in stool (Acute) Moderate anxiety (Acute) Screen for STD (sexually transmitted disease) (Acute) Lipoma of arm (Acute) Left ankle pain (Acute) Moderate depressive disorder (Acute) Back pain (Acute) Remote h/o heroin use. Also cocaine and marijuana in the past. Not for tears. Utox screen clean Past Medical History Medical History Diaphragmatic hernia GERD (gastroesophageal reflux disease) Anxiety Polyarthralgia Tremor Dysphagia History of substance abuse Moderate depressive disorder Back pain Family History Family History Mother No problems noted. Father Prostate cancer Diverticula of colon Paternal Grandmother Pancreatic cancer Maternal Grandmother Breast cancer Son Autism Son No problems noted. Daughter No problems noted. 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 Current occupational exposures/hazards: No Cognitive needs: No Hearing needs: No Vision needs: No Meds Allergies Allergy/AdvReac Type Severity Reaction Status Date / Time gluten Allergy Mild stomach Verified 01/05/25 16:17 pains Exam Height,Weight and Vital Signs: Height 5 ft 4 in Weight 90.718 kg Vital Signs Temp Pulse Resp BP Pulse Ox O2 Del Method 01/10/25 08:27 98.5 F 71 20 113/86 96 Room Air Pertinent Lab Results Pertinent Lab Results: Lab Results 01/06/25 01/06/25 Range/Units 09:11 09:15 WBC 6.0 (4.8-10.8) X10*3/uL RBC 5.30 (4.60-5.80) X10*6/uL Hgb 16.1 (14.0-18.0) g/dl Hct 46.2 (42.0-52.0) % MCV 87.2 (80.0-98.0) fL MCH 30.4 (27.0-33.0) pg MCHC 34.8 (31.0-36.0) g/dl RDW 11.9 (11.0-16.0) % Plt Count 222 (160-400) X10*3/uL MPV 10.2 (9.4-12.4) fL Immature Gran % (Auto) 0.3 (0.0-0.4) % Neut % (Auto) 70.1 (45-73) % Lymph % (Auto) 18.3 L (20-40) % Monona % (Auto) 7.0 (2-11) % Eos % (Auto) 3.3 (0-4) % Baso % (Auto) 1.0 (0-2) % Lymph # (Auto) 1.1 L (1.2-4.9) X10*3/uL Monona # (Auto) 0.4 (0.1-1.2) X10*3/uL Eos # (Auto) 0.2 (0.0-0.4) X10*3/uL Baso # (Auto) 0.1 (0.0-0.2) X10*3/uL Abs Immat Gran (auto) 0.02 (0.00-0.03) X10*3/uL Absolute Neuts (auto) 4.2 (2.0-8.3) x10*3/uL Absolute Nucleated RBC 0.000 (0.0-0.012) X10*3/uL Nucleated RBC % (auto) 0.0 (0.0-0.2) /100WBC PT 12.9 H (10.9-12.4) SEC INR 1.1 (0.9-1.1) APTT 32.7 (26.0-36.8) SEC Sodium 140 (135-145) mmol/L Potassium 4.0 (3.3-5.1) mmol/L Chloride 105 (96-108) mmol/L Carbon Dioxide 29 (22-29) mmol/L Anion Gap 10 L (12-20) BUN 23 H (9-16) mg/dL Creatinine 0.76 (0.5-1.4) mg/dL Estim Creat Clear Calc 127.2 Estimated GFR > 60 Random Glucose 96 (60-115) mg/dL Calcium 9.2 (8.4-10.2) mg/dL Total Bilirubin 1.2 H (0.0-1.0) mg/dL AST 20 (5-37) U/L ALT 21 (0-40) U/L C-Reactive Protein 3.47 H (< or = 0.50) mg/dL Total Protein 7.1 (6.5-8.0) g/dL Albumin 4.2 (3.5-5.0) g/dL Triglycerides 119 (<150) mg/dL Cholesterol 198 (<200) mg/dL LDL Cholesterol, Calc 136 H (<100) mg/dL HDL Cholesterol 39 L (>40) mg/dL TSH 1.09 (0.32-4.0) uIU/mL Blood Type A Positive Antibody Screen NEGATIVE Laboratory Results - last 24 hr 01/10/25 08:07 Urine Opiates Screen Not Detected Ur Buprenorphine Scrn Not Detected Ur Oxycodone Screen Not Detected Urine Methadone Screen Not Detected Urine Fentanyl Screen Not Detected Ur Barbiturates Screen Not Detected Ur Phencyclidine Scrn Not Detected Ur Amphetamines Screen Not Detected U Benzodiazepines Scrn Not Detected Urine Cocaine Screen Not Detected U Marijuana (THC) Screen Not Detected Airway Mallampati Class: II TM Dist: >3cm Neck ROM: Full Loose/Missing/Broken Teeth: Yes (Missing molars. Denies broken or loose teeth) Heart: RRR Lungs: CTAB Assessment and Plan Assessment Anesthesia Assessment: Anesthesia Plan Discussed and Chart Reviewed Final Anesthetic Review Family History of Problems with Anesthesia: No History of Problems with Anesthesia: No NPO: Yes ASA Class: II Final Preanesthetic Review: No Changes in Pt Med Stat, Meds/Allgs Chart Reviewed, Consent Obtained/Reviewed and Anes Risks/Benef Reviewed Patient Risk: Intermediate Procedure Risk: Intermediate Assessment/Block/Sedation in SS: Assess/Block/Sedation-SS Anesthetic Plan Anesthetic Plan: GA Disposition: Standard PACU and Inp. Admit - Standard Bed
[2025-01-06 09:16] LABS: MANUAL DIFF FLAG NO
--- NOTE | 2025-01-06 09:21 | ECG_ITS ---
Test Reason : preop Blood Pressure : */* mmHG Vent. Rate : 63 BPM Atrial Rate : 63 BPM P-R Int : 146 ms QRS Dur : 92 ms QT Int : 400 ms P-R-T Axes : 43 12 22 degrees QTcB Int : 409 ms Normal sinus rhythm Normal ECG No previous ECGs available Referred By: Facundo Martin Electronically Signed By: EDILSON MARIO MD
[2025-01-06 09:51] LABS: Basophils Absolute Auto 0.1 X10*3/uL (0.0-0.2); Eosinophils Absolute Auto 0.2 X10*3/uL (0.0-0.4); Eosinophils Percent Auto 3.3 % (0-4); Hematocrit 46.2 % (42.0-52.0); Hemoglobin 16.1 g/dl (14.0-18.0); Imm Gran Abs Auto 0.02 X10*3/uL (0.00-0.03); Imm Gran Pct Auto 0.3 % (0.0-0.4); Lymphocytes Absolute Auto 1.1 X10*3/uL (1.2-4.9); Lymphocytes Percent Auto 18.3 % (20-40); Mean Corpuscular HGB Conc 34.8 g/dl (31.0-36.0); Mean Corpuscular Hemoglobin 30.4 pg (27.0-33.0); Mean Corpuscular Volume 87.2 fL (80.0-98.0); Mean Platelet Volume 10.2 fL (9.4-12.4); Monocytes Absolute Auto 0.4 X10*3/uL (0.1-1.2); Neutrophils Absolute Auto 4.2 x10*3/uL (2.0-8.3); Neutrophils Percent Auto 70.1 % (45-73); Platelet Count 222 X10*3/uL (160-400); Red Cell Distribution Width 11.9 % (11.0-16.0)
[2025-01-06 09:57] LABS: INTERNATIONAL NORM RATIO 1.1 (0.9-1.1); Prothrombin Time 12.9 SEC (10.9-12.4)
[2025-01-06 10:00] LABS: Partial Thromboplastin Time 32.7 SEC (26.0-36.8)
[2025-01-06 11:01] LABS: Alanine Aminotransferase 21 U/L (0-40); Albumin Level 4.2 g/dL (3.5-5.0); Anion Gap 10 (12-20); Aspartate Amino Transferase 20 U/L (5-37); Bilirubin Total 1.2 mg/dL (0.0-1.0); Blood Urea Nitrogen 23 mg/dL (9-16); C Reactive Protein 3.47 mg/dL (< or = 0.50); Calcium 9.2 mg/dL (8.4-10.2); Carbon Dioxide 29 mmol/L (22-29); Chloride 105 mmol/L (96-108); Cholesterol 198 mg/dL (<200); Creatinine Clr Calc Pharmacy 127.2; Estimated Glomerular Filt Rate > 60; Glucose Random 96 mg/dL (60-115); HDL Cholesterol 39 mg/dL (>40); LDL Cholesterol Calculated 136 mg/dL (<100); Sodium 140 mmol/L (135-145); TSH reflex Free T4 1.09 uIU/mL (0.32-4.0); Total Protein 7.1 g/dL (6.5-8.0); Triglycerides 119 mg/dL (<150)
[2025-01-06 19:46] LABS: Alkaline Phosphatase 82 U/L (39-117)
[2025-01-10] VITALS (9 sets, daily range): BP systolic 113–142; BP diastolic 68–89; PULSE 59–71; RESP 15–20; TEMP 36.1–37; O2SAT 92–97; BMI 34.5
[2025-01-10] MEDS: Aprepitant 32 MG/4.4 ML VIAL IVPUSH (08:51)
[2025-01-10 08:52] LABS: Amphetamine Screen Urine Not Detected (Not Detect); Barbiturates, Urine Not Detected (Not Detect); Benzodiazepines Screen Urine Not Detected (Not Detect); Buprenorphine Scr Not Detected (Not Detect); Cannabinoid Screen Urine Not Detected (Not Detect); Cocaine Screen Urine Not Detected (Not Detect); Fentanyl, urine Not Detected (Not Detect); Methadone Screen, Urine Not Detected (Not Detect); Opiate Screen Urine Not Detected (Not Detect); Oxycodone Screen Urine Not Detected (Not Detect); Phencyclidine Screen Urine Not Detected (Not Detect)
[2025-01-10] MEDS: Lactated Ringers 1,000 ML 999 ML IV (08:52)
--- OUTSIDE RECORDS SUMMARY | 2025-01-10 08:59 | XMS_ITS | Encounter Summary ---
Author Organization [facility] Address [address] [place] [address] Care Team Providers Care Cooperage Shop Supervisor Name Role Phone Vickie Herrmann DMD Primary Care Provider [phone] Encounter Details Date Type Department Care Team (Late st Contact Info) Description 02/15/2022 Dental Interim Note [facility] Main Dental [address] [place] [address] Neeru Llamas [address] [place], [place] [phone] Social History Tobacco Use Types Packs/Day Years [...] on filedocumented in this encounter Care Teams Cooperage Shop Supervisor Relationship Specialty Start Date End Date Vickie Herrmann DMD [address] [place] [address] PCP - General 11/30/20 documented as of this encounter
--- OUTSIDE RECORDS SUMMARY | 2025-01-10 08:59 | XMS_ITS | Clinical Summary ---
Author Organization [facility] Address [address] [place] [address] Phone Care Team Providers Care Pilot Fuel Engineer Name Role Phone Lavonne Terry MD Primary Care Provider [phone] Allergies No known active allergies Medications cyclobenzaprine [...] complete this topic Insurance PLAN Care Teams Pilot Fuel Engineer Relationship Specialty Start Date End Date Lavonne Terry MD [address] [place] [address] , [address] [facility] Physician Associ D/B/A: [facility] [place] [facility] PCP - General Internal Medicine 08/28/24
--- OUTSIDE RECORDS SUMMARY | 2025-01-10 08:59 | XMS_ITS | Clinical Summary ---
Author Organization [facility] Address [address] [place] [address] Care Team Providers Care Wind Tunnel Technician Name Role Phone Vickie Herrmann DMD Primary Care Provider [phone] Source Comments PLEASE NOTE, if this patient [...] 3-dose series) 2000 Hypertension Screening (#1) 08/08/2023 [id number] (1 season) 2024 Imm-Influenza (#1) 2024 Alcohol [...] Insurance HEALTH SAFETY NET DENTAL Care Teams Wind Tunnel Technician Relationship Specialty Start Date End Date Vickie Herrmann DMD [address] [place] [address] PCP - General 11/30/20
--- NOTE | 2025-01-10 10:03 | MHC.SHP ---
Pre-Procedural Eval Section A - 24 Hr Update-Section A only Date of Service: 01/10/25 The patient is an INPATIENT: Yes The patient has been examined within 24 hours of the surgical procedure. The History & Physical has been completed within 30 days and I have reviewed it.: Yes Section B - Complete if H&P > 30 days Chief Complaint: Diaphragmatic hernia Relevant Family History (Specify if Yes): No Relevant Social History: None Present Medications: None Medical History: No relevant PMH History of Previous Operations: No relevant previous surgery Allergies: Allergies Allergy/AdvReac Type Severity Reaction Status Date / Time gluten Allergy Mild stomach Verified 01/05/25 16:17 pains Review of Systems Sugical H&P ROS: Negative: Constitution, Cardiovascular, Respiratory, Neurological, Psychiatric, Hem-Onc, Allergic/Immunologic, Gastrointestinal, Genitourinary, Musculoskeletal, Integumentary, Endocrine and Eyes/Ears/Nose/Throat Exam Surgical H&P Exam: Normal: HEENT, Normal: Heart, Normal: Lungs, Normal: Extremities, Normal: Abdomen, Normal: Skin and Normal: Neurological Plan Diagnosis/Plan: Unchanged I have reviewed the history and physical and performed a pertinent physical examination on my patient. No changes have occurred unless specified. Time Spent With Patient Time: Total time managing care of this patient today ____ minutes.
--- NOTE | 2025-01-10 10:05 | PM.OP ---
Brief Operative Note Date of Service: 01/10/25 Pre-op diagnosis: Diaphragmatic hernia Post-op diagnosis: same Procedure: Date of Service: 01/10/2025 Pre-op diagnosis: Diaphragmatic hernia Post-op diagnosis: same COMORBIDITIES: GERD, diaphragmatic hernia, esophagitis ?INDICATIONS: The patient is a 44 year old male who was referred to me from Dr. Rodriguez for a diaphragmatic hernia and GERD confirmed by EGD and UGI. The patient is scheduled today for diaphragmatic hernia repair. Risks of recurrent hernia, dysphagia, persistent GERD, VTE, leak, infection and bleeding were discussed with the patient and he is in agreement with the plan. PROCEDURE: Esophago-gastroscopy, laparoscopic lysis of adhesions, laparoscopic repair of incarcerated diaphragmatic hernia and laparoscopic gastropexy. DESCRIPTION OF PROCEDURE: After informed consent was obtained from the patient, the patient was given preoperative antibiotics, and was transferred to the operating room. After successful induction of general anesthesia, pneumatic compression devices were placed on both lower extremities. An upper endoscopy was performed next. The oropharynx and upper esophagus appeared to be within normal limits. The stomach was entered and the scope was advanced all the way to the pylorus.? After all fluid and air were suctioned and the stomach was fully decompressed, the scope was withdrawn and secured in the mid esophagus. The patient was then prepped and draped in the usual sterile manner. Abdominal access was established at the right upper quadrant with the Bryant technique. A 12 mm blunt trocar was inserted and the abdomen was insufflated with CO2 to a pressure of 15 mmHg. Following that additional ports were placed, specifically two 5 mm Versi-step ports to the left upper and one 5 mm Versi-step to the right upper quadrant. 1% lidocaine plain was used to infiltrate all port sites as well as all fascia defects. Following that, the patient was placed in a steep reverse Trendelenburg position. An additional 5 mm port was placed to the right flank for the Mediflex retractor that was used to retract the left lobe of the liver. There was a moderate size diaphragmatic hernia. There was a lrage amount of intra-abdominal fat that made the operation very difficult as it limited exposure. I then opened the gastrocolic ligament between the transverse colon and the greater curvature of the stomach with the ultrasonic device to enter the lesser sac and facilitate the ligation of the short gastric vessels. I started at at the upper third along the greater curvature and using the Thunderbeat, all attachments were divided. There was an obvious significant-sized diaphragmatic hiatal hernia. The stomach was incarcerated into the mediastinum with multiple thick adhesions. Mobilization of the stomach was very difficult and required tedious and careful dissection of the proximal short gastric vessels. I continued dissecting along the hiatus toward the left elia into the mediastinum mobilizing the hernia sac from the mediastinum. The esophagus was carefully dissected off the aorta. The pleura spaces were not violated in either side. The pars flaccida was opened. It was actually herniated into the hernia defect. The vena cava was not dilated and it was carefully protected. I then continued by dissecting even further into the posterior retro-esophageal space all the way to the angle of His. I continued to mobilize the esophagus into the mediastinum circumferentially. The esophagus was densely adherent to the aorta and the majority of these adhesions were mobilized. Both vagal nerves were seen and preserved. The gastro-esophageal fat pad was excised in two separate pieces. With extensive circumferential dissection into the mediastinum, I was able to bring the GE junction at least 3cm below the crura. I closed the hernia defect with three interrupted #0 Surgidac sutures using the Endo Stitch device, two of which were placed posterior and one of which anterior to the esophagus. The bites were carefully placed to include both the ventral and dorsal aspect of the two crura, advancing slightly more at the left elia as it was located more diagonally than the right. ? A gastropexy was then performed in order to prevent postoperative GERD and partial gastric volvulus. Several interrupted 2.0 Surgidac sutures were placed between the greater curvature of the dissected stomach and the previously divided greater omentum and gastro-colic ligament using the Endo-Stitch device. ?An upper endoscopy was performed. There was no narrowing at the GE junction or any esophageal injury. The scope was easily advanced all the way to the pylorus which was clearly visualized. There was no narrowing anywhere. I confirmed that the GE junction was 3cm intra-abdominally. At that point the gastroscope was withdrawn from the patient?s mouth while we were decompressing the bowel and the stomach from any remaining air. I looked into the lesser sac to see how the stomach was situating and it was situating well. There was no bleeding from the, spleen, or short gastric vessels. The Mediflex retractor was removed, and the undersurface of the liver was inspected and there was no bleeding. The patient was placed in supine position. Then 30cc of Ropivacaine plain with 10 mg of Dexamethasone were used to infiltrate the fascial closure as well as all skin incisions. At this point, the abdomen was deflated, all ports were removed under direct vision, and no bleeding was noted from any of the port sites. The skin incisions were irrigated with saline and were closed with 4-0 absorbable monofilament sutures. Steri-Strips and OpSites were used to cover all incisions. The patient was extubated and was transferred in stable condition to the recovery room for further care. I was present and performed all freeman parts of the procedure. Mr. Martinez was the assistant professor of forestry. There were no residents to assist with this case. Juan J Martin MD, PhD, FACS Surgeon: Facundo Martin MD Anesthesia: GETA, local and other (TAP block) Was an Boiler/Chiller Technician used for this Procedure?: No Boiler/Chiller Technician: Fernie Martinez Estimated blood loss (mL): 10 IV fluids (mL): 2,000 Urine output (mL): 0 (No Mcclure to record output) Pathology: other (Gastro-esophageal fat pad x2) Condition: stable Disposition: PACU
--- NOTE | 2025-01-10 10:09 | P.PNGS_ITS ---
Subjective Subjective Date of Service: 01/11/25 Interval history: Feels well. Mild incisional pain. He is tolerating phase 1 bariatric diet Physical Exam 2 Vital Signs: Vital Signs: Last Vital Signs Temp 98.5 F 01/10/25 08:27 Pulse 71 01/10/25 08:27 Resp 20 01/10/25 08:27 BP 113/86 01/10/25 08:27 Pulse Ox 96 01/10/25 08:27 O2 Del Method Room Air 01/10/25 08:27 BMI result Body Mass Index 34.5 GI: Inspection: Yes normal to inspection, Yes incision (clean, dry and intact) and Yes obesity Palpation (GI): Soft to palpation Extrem: Right lower extremity: normal to inspection (no calf tenderness) L eft lower extremity: normal to inspection (no calf tenderness) Objective Data Active Medications Lactated Ringer's (Lr) 1,000 mls @ 100 mls/hr IVCONT .Q10H TIFFANY Labs 01/11/25 05:40 01/11/25 05:40 Labs: Laboratory Results - last 24 hr 01/10/25 08:07 Urine Opiates Screen Not Detected Ur Buprenorphine Scrn Not Detected Ur Oxycodone Screen Not Detected Urine Methadone Screen Not Detected Urine Fentanyl Screen Not Detected Ur Barbiturates Screen Not Detected Ur Phencyclidine Scrn Not Detected Ur Amphetamines Screen Not Detected U Benzodiazepines Scrn Not Detected Urine Cocaine Screen Not Detected U Marijuana (THC) Screen Not Detected Procedures Date of Service Date of Service: 01/11/25 Progress Note: A&P Assessment and plan (1) Diaphragmatic hernia: Status: Acute Assessment and Plan: s/p laparoscopic lysis of adhesions, diaphragmatic hernia repair and gastropexy Doing well Will check am labs and if OK the patient will be discharged home (2) GERD (gastroesophageal reflux disease): Status: Acute (3) Dysphagia: Status: Acute (4) Everett esophagus: Status: Acute (5) Status post repair of paraesophageal diaphragmatic hernia: Status: Acute Time Spent With Patient Time: Total time managing care of this patient today ____ minutes. Quality Stroke Does the patient have a stroke diagnosis?: No VTE Prior VTE?: No VTE Risk Level:: Surgical - moderate VTE Device Contraindication: N/A - Device Ordered VTE Drug Contraindication: Treatment Not Indicated
[2025-01-10] MEDS: ceFAZolin Sodium/Dextrose,Iso 2 GM/50 ML PIGGYBACK IV ×2 (10:38→15:57)
--- NOTE | 2025-01-10 12:47 | PM.DS ---
DS: Providers Provider Date of Service: 01/11/25 Date of admission: 01/10/25 08:21 Date of discharge: 01/11/25 Primary care physician: Lavonne Terry MD DS: Diagnosis Discharge Diagnosis (1) Diaphragmatic hernia: Status: Acute (2) GERD (gastroesophageal reflux disease): Status: Acute (3) Dysphagia: Status: Acute (4) Everett esophagus: Status: Acute DS: Summary Hospital Course Hospital Course: ADMITTING DIAGNOSIS: gerd, diaphragmatic hernia ? DISCHARGE DIAGNOSIS: same, s/p laparoscopic repair diaphragmatic hernia ? PAST SURGICAL HISTORY: LIH, appendectomy, orif, septoplasty ? PROCEDURE: upper endoscopy, laparoscopic repair of diaphragmatic hernia ? DISCHARGE SUMMARY: ? History of Present Illness: ? The patient is a?44 year-old male with a BMI of?34 kg/m2 and associated co-morbidities as described above. The patient had extensive work-up and was electively scheduled for laparoscopic, possible open repair of diaphragmatic hernia and gastropexy. Risks and complications of the surgery were discussed with the patient in advance, particularly the possibility of , pulmonary embolism, anastomotic leak, bleeding, bowel injury, GERD, cardiac, renal or pulmonary complications. The patient understood all the risks and was in agreement with the surgical plan. ? Hospital Course: ? The patient underwent an uneventful laparoscopic repair of diaphragmatic hernia with gastropexy on the day of admission. Postoperatively, the patient was transferred to the surgical floor. The patient received IV Acetaminophen and IV dilaudid for pain control. Patient was started on bariatric phase 1 diet POD #0. On postoperative day one, the patient was feeling well without nausea, vomiting, fevers, or tachycardia. The patient had some mild incisional pain and the abdomen was soft. ? On the morning of postoperative day one, the patient was continued on 1 ounce of water or ice every half hour. During the day, the patient did fairly well, having some incisional pain, but able to ambulate adequately and to tolerate liquids well. ? Since the patient is doing well, we decided that the patient was ready to be discharged. The patient was given instructions to follow-up with me next week and to call my office for any fever over 101, persistent abdominal pain, nausea, vomiting, GERD, symptoms of DVT such as calf tenderness, or leg swelling, or pulmonary embolism such as chest pain or shortness of breath. The patient was also instructed to drink 40-60 ounces of liquids per day using the 1-ounce cups. The patient had been given prescriptions for Tylenol for pain, Zofran prn for nausea, and pantoprazole and carafate previously. The patient was encouraged to ambulate and use the incentive spirometer. The patient was allowed to shower, but no baths, and encouraged to stay active at home. All of these instructions were given to the patient personally. All questions were answered and the patient understood all instructions, the instructions were also given to the patient in print. Time Attestation Total time managing care of this patient today: 25 mintues. Discharge Coordination Time (in mins): 25 Quality: Safe Use of Opioids Does Pt have an Active Cancer Diagnosis on the Problem List?: No Quality: Stroke Does the patient have a stroke diagnosis?: No Physical Exam Vital Signs: Vital Signs: Last Vital Signs Temp 98.6 F 01/10/25 12:45 Pulse 64 01/10/25 12:45 Resp 16 01/10/25 12:45 BP 142/87 H 01/10/25 12:45 Pulse Ox 96 01/10/25 12:45 O2 Del Method Simple Mask 01/10/25 12:45 O2 Flow Rate 6 01/10/25 12:45 BMI result Body Mass Index 34.5 DS: Data Data Completed and Pending Pending studies at discharge: Pending at discharge 01/10/25 11:52 Surgical [PTH] Routine Labs on day of discharge: Laboratory Results - last 24 hr 01/10/25 08:07 Urine Opiates Screen Not Detected Ur Buprenorphine Scrn Not Detected Ur Oxycodone Screen Not Detected Urine Methadone Screen Not Detected Urine Fentanyl Screen Not Detected Ur Barbiturates Screen Not Detected Ur Phencyclidine Scrn Not Detected Ur Amphetamines Screen Not Detected U Benzodiazepines Scrn Not Detected Urine Cocaine Screen Not Detected U Marijuana (THC) Screen Not Detected Discharge Plan Discharge Anticipated Discharge Date/Time: 01/11/25 10:00 Patient Disposition: Home, Self-Care Discharge Diagnosis: s/p laparoscopic repair of diaphragmatic hernia Referrals: Lavonne Farr MD [Primary Care Provider] - 1 Week Discharge Medications: Continued pantoprazole 40 mg tablet,delayed release (DR/EC) 40 mg PO DAILY Qty: 90 0RF sucralfate 100 mg/mL suspension 10 ml PO BID Qty: 600 2RF ondansetron 4 mg tablet,disintegrating 4 mg PO Q12H Qty: 20 0RF Rx Instructions: Only take one every 12 hours as needed if you have nausea Discontinued ibuprofen 800 mg tablet 800 mg PO Q8H PRN (Reason: for pain) 30 Days Qty: 90 0RF Discharge Orders: Discharge Order (Routine); Ordered 01/11/25 Ordered By: Facundo Martin Activity on Discharge: No heavy lifting Stand Alone Forms: Patient Portal Discharge page Print Language: Japanese Care Plan Goals: improve gerd Health Concerns: obesity Plan of Treatment: No tub baths, sex or returning to work until discussed at first post op appointment. No exercise, alcohol, tobacco or illegal drug use. Continue to use incentive spirometer hourly while awake. Walk in home for 5- 10 minutes every 2 hours during the first week. Follow all instructions in the bariatric handbook and call with any questions.Discharge Instructions 1. Please call your doctor or come back to the emergency room should any new symptoms arise. 2. You will receive a courtesy call from [facility] 24-48 hours after discharge. 3. Activity: abstain from alcohol, practice limited stair climbing, no bending, no driving, no exercise, no illicit substances, no lifting, no sex, no tub bath, no work. 4. Diet: continue as discussed with Dr. Martin. 5. Dressing Change/Wound Care: Your incision is covered by clear bandages and guaze underneath. If the area is tender, you may apply an ice pack for short intervals (no more than 20 minutes on, followed by at least 20 minutes off). Do not apply heat. Do not use creams, lotions, or topical antibiotics unless instructed to do so by your surgeon. These can cause infection or allergic reaction. 6. Call your doctor if: - Your temperature exceeds 101.5 F - You experience excessive pain or swelling - You have an unexpected reaction to medication - You have excessive bleeding - You experience continued vomiting/nausea - Your incision begins to separate - Your incision shows signs of infection such as increased redness, swelling, excessive pain, heat, or drainage (light blood or clear fluid is normal) 7. General instructions: No lifting greater than 5 lbs for 1 week and not more than 20lbs the next 3?weeks. No driving until seen at the office in 5-7 days after surgery. If you do not move your bowels in the next 2 days, please tell?Dr. Martin. Please walk around your home every hour or two to prevent blood clots from forming in your legs. You do not need to wake from sleeping to walk. Please sleep in a bed or couch to prevent kinking at the hips and knees. Please take your incentive spirometer (your lung remote pilot operator) home with you and use it for the next few days to prevent pneumonia. You may shower, no hot tubs, baths or swimming pools.?Please follow the post op diet instructions you are?given by Dr Martin? and text me daily at 5-6pm for an update.?If you have any issues or concerns or questions please communicate this to him via text.? The Celebrate shakes have all of the bariatric vitamins you need if you consume these shakes. If you are drinking other protein shakes, you will need to purchase the Celebrate multivitamins and calcium that are available in the hospital gift shop on the first floor of the [facility].??Do not take anything without first discussing with Dr Martin. Please make sure you are consuming at least 40 ounces of fluids per day starting the?day AFTER your discharge from the hospital. Always drink 1-2 ml per minute using the 5ml?syringe. If you drink faster you may experience?bloating,?gas pain, burping, nausea or heartburn. In that case please slow down your pace and use the syringe to?understand better the?proper?pace and volume of drinking. Do not hesitate to contact the office with any questions at . The patient's medical history has been reviewed and they are considered low risk for post op DVT and therefore DVT prophylaxis is not considered necessary. Travel after surgery was reviewed. The patient has not disclosed any travel plans during the first 30 days after surgery and they have been advised that within the first 30 days after surgery any bus, plane, train or car travel over 2 hours in duration is contraindicated due to the possibility of developing blood clots from immobility. Any travel, needs to include periods of ambulation of 10 minutes in duration every 2 hours.? The patient was instructed to discuss any plans for travel during this period with their bariatric surgeon. Assessment: stable s/p laparoscopic repair of diaphragmnatic hernia
--- NOTE | 2025-01-10 12:51 | PHA.MEDREC ---
Pharmacy Consult ? Medication Reconciliation Pharmacy has completed the medication reconciliation.
[2025-01-10 13:18] LABS: Hematocrit 40.8 % (42.0-52.0); Hemoglobin 14.2 g/dl (14.0-18.0)
[2025-01-10 13:28] LABS: Anion Gap 11 (12-20); Blood Urea Nitrogen 20 mg/dL (9-16); Carbon Dioxide 27 mmol/L (22-29); Chloride 105 mmol/L (96-108); Creatinine Clr Calc Pharmacy 112.7; Estimated Glomerular Filt Rate > 60; Potassium 4.5 mmol/L (3.3-5.1); Sodium 138 mmol/L (135-145)
[2025-01-10 13:29] LABS: Calcium 8.4 mg/dL (8.4-10.2); Glucose Random 112 mg/dL (60-115)
[2025-01-10] MEDS: Lactated Ringers 1,000 ML 100 ML IVCONT ×2 (13:32→22:47)
[2025-01-10] MEDS: Acetaminophen 1,000 MG/100 ML PIGGYBACK 16.7 MG IV ×2 (17:34→22:46)
--- NOTE | 2025-01-10 18:14 | PC.NURSE ---
Pt has not voided since arrival to unit from pacu , Pt oob ambulating in boo , Pt attempted to void in BR with no result , Pt bladder scanned for 300MLS will continue to monitor .
[2025-01-10] MEDS: HYDROmorphone HCl 0.5 MG/0.5 ML SYRINGE 0.25 MG IVPUSH (23:09)
[2025-01-11] MEDS: Acetaminophen 1,000 MG/100 ML PIGGYBACK 16.7 MG IV (03:20)
[2025-01-11 03:34] VITALS: BP 109/63; PULSE 53; RESP 17; TEMP 36.3; O2SAT 93
[2025-01-11] MEDS: Pantoprazole Sodium 40 MG/10 ML VIAL IVPUSH (05:19)
[2025-01-11 05:59] LABS: MANUAL DIFF FLAG NO
[2025-01-11 06:04] LABS: Basophils Percent Auto 0.1 % (0-2); Hematocrit 40.7 % (42.0-52.0); Hemoglobin 14.1 g/dl (14.0-18.0); Imm Gran Abs Auto 0.04 X10*3/uL (0.00-0.03); Imm Gran Pct Auto 0.5 % (0.0-0.4); Lymphocytes Absolute Auto 0.8 X10*3/uL (1.2-4.9); Lymphocytes Percent Auto 8.9 % (20-40); Mean Corpuscular HGB Conc 34.6 g/dl (31.0-36.0); Mean Corpuscular Hemoglobin 30.1 pg (27.0-33.0); Mean Platelet Volume 9.8 fL (9.4-12.4); Monocytes Absolute Auto 0.4 X10*3/uL (0.1-1.2); Monocytes Percent Auto 4.4 % (2-11); Neutrophils Absolute Auto 7.3 x10*3/uL (2.0-8.3); Neutrophils Percent Auto 86.1 % (45-73); Platelet Count 238 X10*3/uL (160-400); Red Blood Count 4.68 X10*6/uL (4.60-5.80); Red Cell Distribution Width 11.9 % (11.0-16.0); White Blood Count 8.5 X10*3/uL (4.8-10.8)
[2025-01-11 06:14] LABS: Anion Gap 13 (12-20); Blood Urea Nitrogen 21 mg/dL (9-16); Calcium 8.5 mg/dL (8.4-10.2); Carbon Dioxide 25 mmol/L (22-29); Chloride 105 mmol/L (96-108); Creatinine Clr Calc Pharmacy 119.7; Estimated Glomerular Filt Rate > 60; Glucose Random 121 mg/dL (60-115); Potassium 4.5 mmol/L (3.3-5.1); Sodium 138 mmol/L (135-145)
[2025-01-11 07:17] VITALS: BP 117/58; PULSE 53; RESP 17; TEMP 36.7; O2SAT 94
--- NOTE | 2025-01-11 07:44 | HO.POSTANES ---
Post Anesthesia Evaluation Post Anesthesia Evaluation Date of Service: 01/11/25 Vital Signs: Vital Signs Temp Pulse Resp BP Pulse Ox O2 Del Method O2 Flow Rate 01/11/25 07:17 98.1 F 53 17 117/58 L 94 Room Air 01/11/25 03:34 97.3 F 53 17 109/63 93 Room Air 01/10/25 23:27 97.1 F 59 17 124/68 96 Nasal Cannula 2 Anesthesia: General Endotracheal-GETA Mental Status: Awake Pain Control: Satisfactory Nausea/Vomiting: None Hydration: Adequate Anesthesia-Related Issues: No Anes. Related Issues
--- NOTE | 2025-01-11 09:54 | MHC.CM.PN ---
KRAIG delivered. Patient reports he is homeless and usually sleeps on the [address]. Ambulates w/ a walker. Methadone @ [facility]. +THRIVE. Resource guide and detention list provided. HCP on file and verified. PCP @ [facility] DP: [facility] vs recovery team intervention (per patient request). Will need assist w/ transport. CM will continue to follow.
--- NOTE | 2025-01-11 10:34 | MHC.CM.PN ---
Patient dc'd home self care via private transport prior to CM assessment.
== END 2025-01-11 10:03 | disposition home or self-care (01) | DRG 220 ==
LOC: HO.SSSA 10:58 → HO.S3 12:46
PROVIDERS: Nurse Practitioner; Physician Assistant Surgical; Admitting Provider Surgery; PCP Internal Medicine; Visit Provider Surgery
PROC: 0BQT4ZZ Repair Diaphragm, Percutaneous Endoscopic Approach (ICD-10-PCS; principal; 2025-01-10 11:00)
DX: K44.0 Diaphragmatic hernia with obstruction, without gangrene (principal); K21.9 Gastro-esophageal reflux disease without esophagitis; K22.70 Barrett's esophagus without dysplasia; Z87.891 Personal history of nicotine dependence; Z79.899 Other long term (current) drug therapy
CPT/HCPCS: 36415; 80048; 80053; 80061; 80307; 84443; 85014; 85018; 85025; 85610; 85730; 86140; 86850; 86900; 86901; 88304; 88305; 93005; A4649; C9145; J0131; J0690; J1100; J1171; J1596; J2003; J2250; J2405; J2470; J2704; J2795; J3010; J7120

== ENCOUNTER → 2025-01-10 08:21 | Outpatient (BNV) | payer OTHER, SELFPAY | PROVIDERS: Admitting Provider Surgery; PCP Internal Medicine; Visit Provider Surgery | DX: K44.0 Diaphragmatic hernia with obstruction, without gangrene (principal); R13.10 Dysphagia, unspecified; K22.70 Barrett's esophagus without dysplasia | CPT/HCPCS: 43281; 99024; 99499 ==

== ENCOUNTER 2025-01-16 11:22 | Outpatient (AMB) | payer OTHER, SELFPAY ==
--- NOTE | 2025-01-16 11:26 | A.OFFVIS_ITS ---
VS Expanded 01/16/25 11:43 BP 141/78 H Blood Pressure Location Rt brachial Blood Pressure Position Sitting Pulse 73 Pulse Source Pulse Oximeter Temp 97.1 F Temperature Source Temporal Artery Scan Pulse Oximetry 95 Oxygen Delivery Method Room Air Height 5 ft 5 in Weight 202 lb BMI 33.6 Body Fat % 32.1 Body Fat Mass 64.8 Fat Free Mass 137.2 Visceral Fat Rating 16.0 Body Water % 49.3 Body Water Mass 99.6 Muscle Mass/Score 130.2 Basal Metabolic Rate/Score 1,851 Intake Visit Reasons: OV PO Diaphragmatic Hernia Repair 01/10/25 Allergies gluten Allergy (Mild, Verified 01/16/25 11:35) stomach pains HPI Comments Details: 44-year-old male returns to the office today in follow-up. He is 6 days post hiatal hernia repair performed on 01/10/2025. He is tolerating 3 celebrate rebuild shakes with 1 scoop each and approximately 40 50 oz of fluid. Denies any pain. Positive bowel movement. [facility] Medical History (Updated 01/13/25 @ 00:02 by Paul Yeung) Multiple lipomas Physical exam Left wrist pain Dry throat Injury of volar plate of metacarpophalangeal (MCP) joint of thumb Hyperextension injury of thumb Pain of left thumb Thickened small bowel Left elbow pain Left hand pain Lumbar pain Neck pain Left shoulder pain Preprocedural examination Abdominal pain Weak urinary stream Dysphagia Weight loss Clavicle enlargement Urinary retention Tremors of nervous system Cramps, extremity Family history of colon cancer Physical exam Left ankle sprain Lipoma of left shoulder Myofascial muscle pain Trapezius muscle strain Polyarthralgia Mass in neck Right shoulder pain Left shoulder pain Pain of left clavicle Bilateral ankle pain Thoracic spine pain NSAID long-term use Bright red rectal bleeding LUQ abdominal tenderness Blood in stool Moderate anxiety Screen for STD (sexually transmitted disease) Lipoma of arm Left ankle pain Diaphragmatic hernia GERD (gastroesophageal reflux disease) Anxiety Polyarthralgia Tremor Dysphagia History of substance abuse Moderate depressive disorder Back pain Surgical History (Updated 01/16/25 @ 11:50 by Vivien Martell CMA) Status post repair of paraesophageal diaphragmatic hernia Hx of colonoscopy History of left inguinal hernia repair (02/03/19) History of nasal septoplasty History of excision of mass History of appendectomy History of open reduction and internal fixation (ORIF) procedure Family History Mother No problems noted. Father Prostate cancer Diverticula of colon Paternal Grandmother Pancreatic cancer Maternal Grandmother Breast cancer Son Autism Son No problems noted. Daughter No problems noted. 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 Has no further reflux. He will discuss with Dr. Martin meal plans. Return to clinic 2-3 weeks. Encouraged to continue to follow meal plan and pace of drinking. Continue to wear abdominal binder for the next 2 weeks with exercise and activity.
[2025-01-16 11:43] VITALS: BP 141/78; PULSE 73; TEMP 36.2; O2SAT 95; BMI 33.6
--- OUTSIDE RECORDS SUMMARY | 2025-01-16 13:46 | XMS_ITS | Clinical Summary ---
Author Organization [facility] Address [address] [place] [address] Care Team Providers Care Vessel Liner Name Role Phone Vickie Herrmann DMD Primary Care Provider [phone] Source Comments PLEASE NOTE, if this patient [...] 3-dose series) 2000 Hypertension Screening (#1) 08/08/2023 [id number] (1 season) 2024 Imm-Influenza (#1) 2024 Alcohol [...] Insurance [employer] Care Teams Vessel Liner Relationship Specialty Start Date End Date Vickie Herrmann DMD [address] [place] [address] PCP - General 11/30/20
--- OUTSIDE RECORDS SUMMARY | 2025-01-16 13:46 | XMS_ITS | Encounter Summary ---
Author Organization [facility] Address [address] [place] [address] Care Team Providers Care Manager Equipment Name Role Phone Vickie Herrmann DMD Primary Care Provider [phone] Encounter Details Date Type Department Care Team (Late st Contact Info) Description 02/15/2022 Dental Interim Note [facility] Main Dental [address] [place] [address] Neeru Llamas Y [address] [place], [place] [id number] Social History Tobacco Use Types Packs/Day Years [...] on filedocumented in this encounter Care Teams Manager Equipment Relationship Specialty Start Date End Date Vickie Herrmann DMD [address] [place] [address] PCP - General 11/30/20 documented as of this encounter
--- OUTSIDE RECORDS SUMMARY | 2025-01-16 13:47 | XMS_ITS | Clinical Summary ---
Author Organization [facility] Address [address] [place] [address] Phone Care Team Providers Care Countersinker Name Role Phone Lavonne Terry MD Primary Care Provider [phone] Allergies No known active allergies Medications cyclobenzaprine [...] complete this topic Insurance PLAN Care Teams Countersinker Relationship Specialty Start Date End Date Lavonne Terry MD [address] [place] [address] , [address] [facility] D/B/A: [facility] [place] [facility] PCP - General Internal Medicine 08/28/24
== END 2025-01-16 12:00 | disposition home or self-care (01) ==
LOC: HO.HBS 11:23
PROVIDERS: PCP Internal Medicine; Visit Provider Physician Assistant Surgical
DX: Z98.890 Other specified postprocedural states (principal); Z87.19 Personal history of other diseases of the digestive system
CPT/HCPCS: 99024

== ENCOUNTER → 2025-01-16 11:22 | Outpatient (BNVA) | payer OTHER, SELFPAY | PROVIDERS: PCP Internal Medicine; Visit Provider Physician Assistant Surgical | DX: Z48.815 Encounter for surgical aftercare following surgery on the digestive system (principal); Z87.19 Personal history of other diseases of the digestive system; Z98.890 Other specified postprocedural states | CPT/HCPCS: 99212 ==

== ENCOUNTER 2025-01-27 10:38 | Outpatient (AMB) | payer OTHER, SELFPAY ==
--- NOTE | 2025-01-27 10:44 | MHC.OFFVIS ---
Vital Signs 01/27/25 10:45 Height 5 ft 5 in Weight 198 lb 6.656 oz BMI 33.0 BP 108/58 L Position Sitting Intake Visit Reasons: Follow u Intake Note: Zeyad presents in the office as a follow up. CC: States he gets some gas here and there but has been feeling okay. 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 Pt seen with the help of chalk extruding machine operator. Reports noticing scant amount of fresh blood on wiping after having a BM. The BM itself is brown, not hard, sometimes has to strain. 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 Takes NSAIDs diclofenac once daily and takes pantoprazole with it. No fam hx of CRC or IBD. Pt also mentions heartburn and left sided burning abdominal pain most of the days of the week associated with nausea, pain worse when he does NOT eat. No vomiting, hematemesis, melena. NSAID use as above. Former smoker, quit 2 years ago. No etOH use. 05/16/24: Lost to follow up last year. Seen with an patching machine operator today. Reports difficulty swallowing. Feels as if food is stuck in his esophagus. Has been having on and off difficulty for almost a year but reports significant worsening since a month. More issue with solids and has to saba with fluids. Feels as if gets stuck in upper chest. No changes in last months. Reports unintentional weight loss of around 15 lbs since past year. Pt also reports father was recently diagnosed with colon polyps but they were benign. Confirmed with him over the phone. Pt reports fam hx of colorectal ca in mat grandmother. - EGD/colo: hiatal hernia Barretts mild gastritis Colonoscopy Findings: ileitis internal hemorrhoids A. Duodenum, biopsy: Small intestinal mucosa within normal limits. B. Stomach, biopsy: Oxyntic mucosa within normal limits; no Helicobacter organisms seen. C. Esophagus, distal, biopsy: - Cardiac-type mucosa with moderate chronic active inflammation and intestinal metaplasia; negative for dysplasia. - No squamous epithelium identified. D. Terminal ileum, biopsy: Terminal ileal mucosa within normal limits. E. Colon, right, biopsy: Colonic mucosa within normal limits. 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 Reports no acute issues today. No abd pain, N,V, changes in stools. Swallowing better sinec empiric dilation. Appetite is back to normal and he has in fact regained at least 10 lbs since last seen. EGD/colo results reviewed. Pt has been referred to foregut surgery already for HH repair consideration. Pt questions need for capsule and discussed that in the absence of sx and normal T.I bx should hold off. However, if CT scan shows small bowel disease, low threshold to proceed. CT booked for next month. 12/02/24: here for follow up. Was offered an appt after CT was done but pt requested to keep an appt before the scan was done. Reports was recently diagnosed with gluten allergy but blood work and egd and bx reviewed and no celiac. Pt reports feeling better when he avoids gluten. Main issue today is feeling of dry scratchy throat. Feeling remains despite drinking lots of fluids. Persistent x months low suspicion for infection ? allergy. Also est with Dr Martin now for diaphragmatic hernia and GERD. Ilonel for repair next month. GERD sx well controlled with PPI. Has SSBE. 01/27/25: here for follow up. Seen with chalk extruding machine operator. s/p diaphragmatic hernia repair 01/10/2025. Reports no acute sx. Mild abd discomfort on positional changes. No N,V,D. No change in bowel habits. Reflux sx have resolved but cont on PPI through surg office. [facility] Medical History (Updated 01/23/25 @ 17:30 by Facundo Martin MD) Multiple lipomas Physical exam Left wrist pain Dry throat Injury of volar plate of metacarpophalangeal (MCP) joint of thumb Hyperextension injury of thumb Pain of left thumb Thickened small bowel Left elbow pain Left hand pain Lumbar pain Neck pain Left shoulder pain Preprocedural examination Abdominal pain Weak urinary stream Dysphagia Weight loss Clavicle enlargement Urinary retention Tremors of nervous system Cramps, extremity Family history of colon cancer Physical exam Left ankle sprain Lipoma of left shoulder Myofascial muscle pain Trapezius muscle strain Polyarthralgia Mass in neck Right shoulder pain Left shoulder pain Pain of left clavicle Bilateral ankle pain Thoracic spine pain NSAID long-term use Bright red rectal bleeding LUQ abdominal tenderness Blood in stool Moderate anxiety Screen for STD (sexually transmitted disease) Lipoma of arm Left ankle pain Diaphragmatic hernia GERD (gastroesophageal reflux disease) Anxiety Polyarthralgia Tremor Dysphagia History of substance abuse Moderate depressive disorder Back pain Surgical History (Updated 01/16/25 @ 11:50 by Vivien Martell CMA) Status post repair of paraesophageal diaphragmatic hernia Hx of colonoscopy History of left inguinal hernia repair (02/03/19) History of nasal septoplasty History of excision of mass History of appendectomy History of open reduction and internal fixation (ORIF) procedure Family History Mother No problems noted. Father Prostate cancer Diverticula of colon Paternal Grandmother Pancreatic cancer Maternal Grandmother Breast cancer Son Autism Son No problems noted. Daughter No problems noted. 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 Current occupational exposures/hazards: No Cognitive needs: No Hearing needs: No Vision needs: No Review of Systems Const All systems reviewed & are unremarkable except as noted in HPI and below Physical Exam Vital Signs: Last Vital Signs BP 108/58 L 01/27/25 10:45 BMI result Body Mass Index 33.0 No apparent distress Nonicteric Abdomen soft, nondistended Alert and oriented x3, normal gait Assessment & Plan Assessment & Plan (1) Abdominal pain: Code(s): R10.9 - Unspecified abdominal pain Category: Medical (2) Thickened small bowel: Code(s): K63.9 - Disease of intestine, unspecified Category: Medical (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 BE without dysplasia 2. GERD s/p HH hernia and has also lost some weight. No further reflux sx. 3. ? T.I thickening: noted on UGIS. T.I biopsies normal on colo 07/2024. Pt without correlating sx. Unfortunately pt missed his CT abd/pel appt x 2. Will hold further imaging for now in the absence of clinical s/sx. 4. CRC screening Next colo due 2033. PRN follow up Coding Level of Care Code Est Pt Level 4 (66418) Diagnoses Abdominal pain R10.9 Thickened small bowel K63.9 Everett esophagus K22.70 Diaphragmatic hernia without obstruction and without gangrene K44.9 Obstruction and gangrene presence: without obstruction or gangrene GERD (gastroesophageal reflux disease) K21.9
[2025-01-27 10:45] VITALS: BP 108/58; BMI 33.0
--- OUTSIDE RECORDS SUMMARY | 2025-01-27 11:07 | XMS_ITS | Clinical Summary ---
Author Organization [facility] Address [address] [place] [address] Phone Care Team Providers Care Spin Table Operator Name Role Phone Lavonne Terry MD Primary Care Provider [phone] Allergies No known active allergies Medications cyclobenzaprine [...] age to complete this [place] [address] Care Teams Spin Table Operator Relationship Specialty Start Date End Date Lavonne Terry MD [address] [place] [address] , [address] [facility] Physician Associ D/B/A: [facility] [place] [facility] PCP - General Internal Medicine 08/28/24
--- OUTSIDE RECORDS SUMMARY | 2025-01-27 11:07 | XMS_ITS | Encounter Summary ---
Author Organization [facility] Address [address] [place] [address] Care Team Providers Care Portrait Painter Name Role Phone Vickie Herrmann DMD Primary Care Provider [phone] Encounter Details Date Type Department Care Team (Late st Contact Info) Description 02/15/2022 Dental Interim Note [facility] Main Dental [address] [place] [address] Neeru Llamas Y [address] [place], [place] [phone] Social History Tobacco Use Types Packs/Day Years [...] on filedocumented in this encounter Care Teams Portrait Painter Relationship Specialty Start Date End Date Vickie Herrmann DMD [address] [place] [address] PCP - General 11/30/20 documented as of this encounter
--- OUTSIDE RECORDS SUMMARY | 2025-01-27 11:07 | XMS_ITS | Clinical Summary ---
Author Organization [facility] Address [address] [place] [address] Care Team Providers Care Rn Access Name Role Phone Vickie Herrmann DMD Primary Care Provider [phone] Source Comments PLEASE NOTE, if this patient [...] 3-dose series) 2000 Hypertension Screening (#1) 08/08/2023 [id number] (1 season) 2024 Imm-Influenza (#1) 2024 Alcohol [...] Insurance HEALTH SAFETY NET DENTAL Care Teams Rn Access Relationship Specialty Start Date End Date Vickie Herrmann DMD [address] [place] [address] PCP - General 11/30/20
== END 2025-01-27 11:27 | disposition home or self-care (01) ==
LOC: HO.HGI 10:39
PROVIDERS: PCP Internal Medicine; Visit Provider Internal Medicine
DX: R10.9 Unspecified abdominal pain (principal); K63.9 Disease of intestine, unspecified; K22.70 Barrett's esophagus without dysplasia; K44.9 Diaphragmatic hernia without obstruction or gangrene; K21.9 Gastro-esophageal reflux disease without esophagitis
CPT/HCPCS: 99214

== ENCOUNTER → 2025-01-27 10:38 | Outpatient (BNVA) | payer OTHER, SELFPAY | PROVIDERS: PCP Internal Medicine; Visit Provider Internal Medicine | DX: K63.9 Disease of intestine, unspecified (principal); K22.70 Barrett's esophagus without dysplasia; R10.9 Unspecified abdominal pain; K44.9 Diaphragmatic hernia without obstruction or gangrene; K21.9 Gastro-esophageal reflux disease without esophagitis | CPT/HCPCS: 99212 ==

== ENCOUNTER 2025-02-02 08:42 | Outpatient (RCR) | payer OTHER, SELFPAY ==
--- NOTE | 2025-02-02 09:53 | MHC.OT.EP ---
[address] [phone] Occupational Therapy Plan of Care Patient Name: Zeyad Martell Date of Evaluation: 02/02/25 Diagnosis: Decreased L thumb use Pain Location: only w/ certain movements and fatigue more than pain Pain Score: 4 Pain Scale Used: Numeric (0 - 10) Aggravating Factors: Alleviating Factors: Assessment: Pt is a 44 yr old R hand dominant male who reports falling in 08/27/2024 in a [employer] while looking at a truck and he slipped on black ice onto his L side. He reports pain in L UE , shoulder, wrist, and L thumb. He though he may have dislocated his L thumb or had a fracture when his thumb pain did not improve and he reports decreased ROM. Pt saw the PA on 09/30 at [facility] and had an X-ray which was negative for fractures and dislocations, but had a hyperextension injury. He had a splint fabricated here (2 splints) in October ; they helped to decrease pain and increase the use of his L hand. He denies pain currently and reports sx's have improved because he had surgery (not UE / hand related) and has had to rest for a few weeks. Pt has good ROM today, mild weakness, but reports instability of his thumb and difficulty w/ picking up smaller objects. Pt had a follow up w/ Dr. Ingram on 12/27/2024, who referred him to skilled OT therapy to increase thumb stabilization, strength, and functional use of his L hand. Pt was 20 minutes late for todays appointment. Frequency and Duration: The patient will be seen 1 X A WEEK FOR 4 WEEKS Short Term Goals: SEE BELOW Registered Nurse Renal Goals: Pt will be compliant w/ his HEP Pt will gain 15 lbs of L hand egyptologist to 75 lbs Pt will be compliant w/ attending therapy Treatment Plan: Therapeutic Exercise Therapeutic Activity Home Exercise Program Patient Education ADL Training Fluidotherapy MHP Joint Mobilization Soft Tissue Mobilization Kinesiotaping Electronically Signed By: Yolie Atkinson OTR/L Please Sign and return to therapist. Thank you once again for your referral.
== END 2025-05-17 09:01 | disposition home or self-care (01) ==
LOC: HO.OT 08:42
PROVIDERS: PCP Internal Medicine; Visit Provider Orthopaedic Surgery
DX: S69.82XD Other specified injuries of left wrist, hand and finger(s), subsequent encounter (principal); M25.532 Pain in left wrist
CPT/HCPCS: 97110; 97165; 97535

== ENCOUNTER 2025-02-10 13:21 | Outpatient (AMB) | payer OTHER, SELFPAY ==
--- NOTE | 2025-02-10 13:25 | MHC.OFFVISWM ---
VS Expanded 02/10/25 13:38 BP 116/83 Blood Pressure Location Rt brachial Blood Pressure Position Sitting Pulse 53 Pulse Source Pulse Oximeter Temp 96.4 F L Temperature Source Temporal Artery Scan Pulse Oximetry 96 Oxygen Delivery Method Room Air Height 5 ft 5 in Weight 193 lb 12.8 oz BMI 32.2 Body Fat % 28.5 Body Fat Mass 55.4 Fat Free Mass 138.4 Visceral Fat Rating 13.0 Body Water % 51.9 Body Water Mass 100.6 Muscle Mass/Score 131.6 Basal Metabolic Rate/Score 1,853 Intake Visit Reasons: OV PO Diaphragmatic Hernia Repair 01/10/25 Allergies gluten Allergy (Mild, Verified 02/10/25 13:31) stomach pains HPI Comments Details: Patient is a pleasant 44-year-old male who returns to the office today in follow-up. He is approximately 1 month post hiatal hernia repair performed on 01/10/2025. Overall he is doing fairly well. Following meal plan as directed by Dr. Martin including 2 celebrate rebuild shakes with 2 scoops each, a meal with 4 forks of protein and 4 of vegetables and a celebrate bar. [facility] Medical History (Updated 01/23/25 @ 17:30 by Facundo Martin MD) Multiple lipomas Physical exam Left wrist pain Dry throat Injury of volar plate of metacarpophalangeal (MCP) joint of thumb Hyperextension injury of thumb Pain of left thumb Thickened small bowel Left elbow pain Left hand pain Lumbar pain Neck pain Left shoulder pain Preprocedural examination Abdominal pain Weak urinary stream Dysphagia Weight loss Clavicle enlargement Urinary retention Tremors of nervous system Cramps, extremity Family history of colon cancer Physical exam Left ankle sprain Lipoma of left shoulder Myofascial muscle pain Trapezius muscle strain Polyarthralgia Mass in neck Right shoulder pain Left shoulder pain Pain of left clavicle Bilateral ankle pain Thoracic spine pain NSAID long-term use Bright red rectal bleeding LUQ abdominal tenderness Blood in stool Moderate anxiety Screen for STD (sexually transmitted disease) Lipoma of arm Left ankle pain Diaphragmatic hernia GERD (gastroesophageal reflux disease) Anxiety Polyarthralgia Tremor Dysphagia History of substance abuse Moderate depressive disorder Back pain Surgical History Status post repair of paraesophageal diaphragmatic hernia Hx of colonoscopy History of left inguinal hernia repair (02/03/19) History of nasal septoplasty History of excision of mass History of appendectomy History of open reduction and internal fixation (ORIF) procedure Family History Mother No problems noted. Father Prostate cancer Diverticula of colon Paternal Grandmother Pancreatic cancer Maternal Grandmother Breast cancer Son Autism Son No problems noted. Daughter No problems noted. 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 Encouraged to continue to follow meal plan. Encouraged to avoid abdominal exercises or core exercises for another 2 weeks. Return to clinic 2 months.
--- OUTSIDE RECORDS SUMMARY | 2025-02-10 13:25 | XMS_ITS | Clinical Summary ---
Author Organization [facility] Address [address] [place] [address] Care Team Providers Care Customer Marketing Intern Name Role Phone Vickie Herrmann DMD Primary Care Provider [phone] Source Comments PLEASE NOTE, if this patient [...] 3-dose series) 2000 Hypertension Screening (#1) 08/08/2023 [id number] (1 season) 2024 Imm-Influenza (#1) 2024 Alcohol [...] Insurance HEALTH SAFETY NET DENTAL Care Teams Customer Marketing Intern Relationship Specialty Start Date End Date Vickie Herrmann DMD [address] [place] [address] PCP - General 11/30/20
[2025-02-10 13:38] VITALS: BP 116/83; PULSE 53; TEMP 35.8; O2SAT 96; BMI 32.2
== END 2025-02-10 13:59 | disposition home or self-care (01) ==
LOC: HO.HBS 13:22
PROVIDERS: PCP Internal Medicine; Visit Provider Physician Assistant Surgical
DX: Z98.890 Other specified postprocedural states (principal); Z87.19 Personal history of other diseases of the digestive system
CPT/HCPCS: 99024

== ENCOUNTER → 2025-02-10 13:21 | Outpatient (BNVA) | payer OTHER, SELFPAY | PROVIDERS: PCP Internal Medicine; Visit Provider Physician Assistant Surgical | DX: Z48.815 Encounter for surgical aftercare following surgery on the digestive system (principal); Z98.890 Other specified postprocedural states; Z87.19 Personal history of other diseases of the digestive system | CPT/HCPCS: 99212 ==

== ENCOUNTER 2025-02-17 14:29 | Outpatient (AMB) | payer OTHER, SELFPAY ==
--- OUTSIDE RECORDS SUMMARY | 2025-02-17 14:31 | XMS_ITS | Clinical Summary ---
Author Organization [facility] Address [address] [place] [address] Care Team Providers Care Policy Value Calculator Name Role Phone Vickie Herrmann DMD Primary Care Provider [phone] Source Comments PLEASE NOTE, if this patient [...] 3-dose series) 2000 Hypertension Screening (#1) 08/08/2023 [id number] (1 season) 2024 Imm-Influenza (#1) 2024 Alcohol [...] Insurance HEALTH SAFETY NET DENTAL Care Teams Policy Value Calculator Relationship Specialty Start Date End Date Vickie Herrmann DMD [address] [place] [address] PCP - General 11/30/20
--- NOTE | 2025-02-17 14:51 | MHC.OFFVIS ---
Vital Signs 02/17/25 14:53 Height 5 ft 5 in Weight 193 lb BMI 32.1 Intake Visit Reasons: OV- Left thumb ROM check Intake Note: Zeyad is a 43 year old right hand dominant, Green[place]ic Speaking, male who presents today for a ROM of his Left Thumb s/p Slip and Fall on ice ~07/2024. States he is doing a lot better. At time he feels like his thumb hyper extends but feel no pain. Allergies gluten Allergy (Mild, Verified 02/10/25 13:31) stomach pains [facility] Medical History (Updated 01/23/25 @ 17:30 by Facundo Martin MD) Multiple lipomas Physical exam Left wrist pain Dry throat Injury of volar plate of metacarpophalangeal (MCP) joint of thumb Hyperextension injury of thumb Pain of left thumb Thickened small bowel Left elbow pain Left hand pain Lumbar pain Neck pain Left shoulder pain Preprocedural examination Abdominal pain Weak urinary stream Dysphagia Weight loss Clavicle enlargement Urinary retention Tremors of nervous system Cramps, extremity Family history of colon cancer Physical exam Left ankle sprain Lipoma of left shoulder Myofascial muscle pain Trapezius muscle strain Polyarthralgia Mass in neck Right shoulder pain Left shoulder pain Pain of left clavicle Bilateral ankle pain Thoracic spine pain NSAID long-term use Bright red rectal bleeding LUQ abdominal tenderness Blood in stool Moderate anxiety Screen for STD (sexually transmitted disease) Lipoma of arm Left ankle pain Diaphragmatic hernia GERD (gastroesophageal reflux disease) Anxiety Polyarthralgia Tremor Dysphagia History of substance abuse Moderate depressive disorder Back pain Surgical History Status post repair of paraesophageal diaphragmatic hernia Hx of colonoscopy History of left inguinal hernia repair (02/03/19) History of nasal septoplasty History of excision of mass History of appendectomy History of open reduction and internal fixation (ORIF) procedure Family History Mother No problems noted. Father Prostate cancer Diverticula of colon Paternal Grandmother Pancreatic cancer Maternal Grandmother Breast cancer Son Autism Son No problems noted. Daughter No problems noted. 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 He reports significant improvement, with localized pain and tenderness. The hypermobility issue involves no redness or swelling currently. A month prior, he underwent hernia repair, which he has recovered from during a period of rest and has recently returned to work. Compliance with wearing a thumb splint at work was partial, contributing positively to his recovery status. Review of Systems - Musculoskeletal: Reports tenderness of the left thumb MCP joint. Denies redness and swelling. - Integumentary: Denies redness or swelling. - Other systems: Not discussed. Systems reviewed and are negative except as per HPI and below Physical Exam - Musculoskeletal- Tenderness localized to the left thumb volar MCP joint, greatly improved from last visit, no noted redness or swelling. Results Procedure Plan Continue using the thumb splint during work for the next four to six weeks to support stabilization of the left thumb MCP joint. Reassessment is advised if pain increases, and further evaluation may be required should symptoms persist beyond this period. The gradual reduction of splint use may be considered based on symptom improvement. Immediate follow-up is not necessary unless symptoms recede or worsen. Patient was informed and verbally consented to the use of an ambient scribe for clinic note documentation during this visit. Discussion Notes I advised the patient to continue using the splint at work for an additional four to six weeks to assist in mitigating hypermobility and preventing further strain on his left thumb MCP joint. We discussed that he might gradually reduce splint use after this period based on the absence of symptoms. I emphasized that if pain worsens or any redness or swelling arises, he should reach out to schedule a follow-up. The patient agreed with the proposed management plan and expressed understanding of the protocol. No acute follow-up is required unless the situation changes. Patient Instructions - Wear the thumb splint at work for the next four to six weeks. - Start weaning off the splint after four weeks if symptoms improve. - Contact the office if pain worsens or redness and swelling develop. - No immediate follow-up needed unless symptoms persist or worsen. Coding Level of Care Code Est Pt Level 3 (68355) Diagnoses Injury of volar plate of metacarpophalangeal (MCP) joint of thumb S69.90XA
[2025-02-17 14:53] VITALS: BMI 32.1
== END 2025-02-17 15:10 | disposition home or self-care (01) ==
LOC: HO.HOS 14:30
PROVIDERS: PCP Internal Medicine
DX: S69.92XA Unspecified injury of left wrist, hand and finger(s), initial encounter (principal)
CPT/HCPCS: 99213

== ENCOUNTER → 2025-02-17 14:29 | Outpatient (BNVA) | payer OTHER, SELFPAY | PROVIDERS: PCP Internal Medicine | DX: S69.82XD Other specified injuries of left wrist, hand and finger(s), subsequent encounter (principal) | CPT/HCPCS: 99212 ==

== ENCOUNTER 2025-03-02 14:41 | Outpatient (AMB) | payer OTHER, SELFPAY ==
--- NOTE | 2025-03-02 14:51 | MHC.OFFVIS ---
Vital Signs 03/02/25 14:54 Height 5 ft 5 in Weight 199 lb 4 oz BMI 33.2 BP 124/74 Blood Pressure Location Lt brachial Position Sitting Pulse 65 Intake Visit Reasons: Lipoma X2 Lt chest near nipple Intake Note: Patient is seen in office for evaluation of mulitple lipomas. Pt c/o: has multiple lipomas in the body, the most bothersome ones are in both side of the nipples, onset for over 4 yrs, increase in size, burning, pain to the touch, denies discharge or infections, had some removed in the past by Dr Grande Deckhand Required: No Accompanied by: Self / Same As Patient Allergies gluten Allergy (Mild, Verified 03/02/25 14:53) stomach pains Medication List - Last Reconciled 03/02/25 by Jean Grande MD docusate sodium (Colace) 100 mg PO DAILY ondansetron 4 mg PO Q12H pantoprazole 40 mg PO DAILY sucralfate 10 mL PO BID HPI Comments Details: 44-year-old male patient with a previous history of multiple lipomas now presenting with 2 symptomatic lipomas located on either side of the chest wall. These have been present for several years and seemed to be increasing in size. He reports increased pain while at work when using his arms. He denies any redness or discharge from the skin. He denies any previous surgery in these locations. The patient requests excision of the bilateral chest lipomas. [facility], [facility] Medical History Multiple lipomas Physical exam Left wrist pain Dry throat Injury of volar plate of metacarpophalangeal (MCP) joint of thumb Hyperextension injury of thumb Pain of left thumb Thickened small bowel Left elbow pain Left hand pain Lumbar pain Neck pain Left shoulder pain Preprocedural examination Abdominal pain Weak urinary stream Dysphagia Weight loss Clavicle enlargement Urinary retention Tremors of nervous system Cramps, extremity Family history of colon cancer Physical exam Left ankle sprain Lipoma of left shoulder Myofascial muscle pain Trapezius muscle strain Polyarthralgia Mass in neck Right shoulder pain Left shoulder pain Pain of left clavicle Bilateral ankle pain Thoracic spine pain NSAID long-term use Bright red rectal bleeding LUQ abdominal tenderness Blood in stool Moderate anxiety Screen for STD (sexually transmitted disease) Lipoma of arm Left ankle pain Diaphragmatic hernia GERD (gastroesophageal reflux disease) Anxiety Polyarthralgia Tremor Dysphagia History of substance abuse Moderate depressive disorder Back pain Surgical History Status post repair of paraesophageal diaphragmatic hernia Hx of colonoscopy History of left inguinal hernia repair (02/03/19) History of nasal septoplasty History of excision of mass History of appendectomy History of open reduction and internal fixation (ORIF) procedure Family History Mother No problems noted. Father Prostate cancer Diverticula of colon Paternal Grandmother Pancreatic cancer Maternal Grandmother Breast cancer Son Autism Son No problems noted. Daughter No problems noted. 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 Right chest 1.5 cm lipoma mobile within the subcutaneous tissue 2. Left chest 1.5 cm lipoma mobile within the subcutaneous tissue Resp Effort & Inspection: normal respiratory effort, no audible wheezes, no cough and no respiratory distress GI Inspection: Yes normal to inspection Skin Other: Warm, dry, no rashes Neuro General: patient oriented x3 Extrem Other: No edema Assessment & Plan Assessment & Plan (1) Lipoma of anterior chest wall: Code(s): D17.1 - Benign lipomatous neoplasm of skin and subcutaneous tissue of trunk Category: Medical Plan 44-year-old male patient presenting with bilateral chest wall lipomas which are painful when using his upper extremities. On examination he has a bilateral mobile soft tissue mass suggestive of a lipoma each measuring approximately 1.5 cm in diameter. I recommended excision of both lesions as a minor surgery under local anesthesia. After discussion of the procedure, risks, and alternatives, he consents to the surgery. Coding Level of Care Code New Pt Level 4 (97237) Diagnoses Lipoma of anterior chest wall D17.1
[2025-03-02 14:54] VITALS: BP 124/74; PULSE 65; BMI 33.2
--- OUTSIDE RECORDS SUMMARY | 2025-03-02 17:17 | XMS_ITS | Clinical Summary ---
Author Organization [facility] Address [address] [place] [address] Care Team Providers Care Roster Clerk Name Role Phone Vickie Herrmann DMD Primary Care Provider [phone] Source Comments PLEASE NOTE, if this patient [...] 3-dose series) 2000 Hypertension Screening (#1) 08/08/2023 [id number] ( season) 2024 Alcohol and Drug Screen 09/21/2024 Depression Annual Screen 09/21/2024 Imm-Influenza (Season Ended) 2025 Tobacco Screening 08/26/2025 08/26/2024 Dental BW 08/28/2025 [...] Insurance HEALTH SAFETY NET DENTAL Care Teams Roster Clerk Relationship Specialty Start Date End Date Vickie Herrmann DMD [address] [place] [address] PCP - General 11/30/20
== END 2025-03-02 14:59 | disposition home or self-care (01) ==
LOC: HO.HGS 14:42
PROVIDERS: PCP Internal Medicine; Referring Provider Internal Medicine; Visit Provider Surgery
DX: D17.1 Benign lipomatous neoplasm of skin and subcutaneous tissue of trunk (principal)
CPT/HCPCS: 99204

== ENCOUNTER → 2025-03-02 14:41 | Outpatient (BNVA) | payer OTHER, SELFPAY | PROVIDERS: PCP Internal Medicine; Referring Provider Internal Medicine; Visit Provider Surgery | DX: D17.1 Benign lipomatous neoplasm of skin and subcutaneous tissue of trunk (principal) | CPT/HCPCS: 99202 ==

== ENCOUNTER 2025-03-17 13:16 | Outpatient (REF) | payer OTHER, SELFPAY ==
[2025-03-17 13:22] VITALS: BP 123/58; PULSE 64; RESP 16; TEMP 36.2; O2SAT 96
--- OUTSIDE RECORDS SUMMARY | 2025-03-17 13:46 | XMS_ITS | Clinical Summary ---
Author Organization [facility] Address [address] [place] [address] Care Team Providers Care Statistician Name Role Phone Vickie Herrmann DMD Primary Care Provider [phone] Source Comments PLEASE NOTE, if this patient [...] 3-dose series) 2000 Hypertension Screening (#1) 08/08/2023 [id number] ( season) 2024 Alcohol and Drug Screen [...] Insurance HEALTH SAFETY NET DENTAL Care Teams Statistician Relationship Specialty Start Date End Date Vickie Herrmann DMD [address] [place] [address] PCP - General 11/30/20
--- NOTE | 2025-03-17 13:56 | W.PM.OPN ---
Operative Note Operative Note Date of Service: 03/17/25 Narrative: Preoperative diagnosis: Lipoma bilateral chest Postoperative diagnosis: Same Procedure: Excision of bilateral chest lipomas Surgeon: Jean Grande MD Cutter Grind Tool Technician: Flory Woods MS-3 Anesthesia: Lidocaine 1% with epinephrine Indications for procedure: 44-year-old male patient presenting with bilateral palpable lipomas which are tender to palpation. Each measures approximately 2 cm in diameter. Operative findings: Bilateral chest lipomas 2 cm each Specimen: Bilateral chest lipoma Estimated blood loss: Less than 2 mL Complications: None Procedure details: Patient was brought to the minor surgery suite and placed in a supine position. The site of surgery was confirmed by the patient in the bilateral chest lateral to the nipple-areolar complex. Which measured approximately 2 cm. Beginning on the left chest, the skin was prepped with Betadine and draped in a sterile fashion after assuring informed consent. Local anesthesia was then infiltrated in a transverse fashion directly over the lipoma. Incision was then made with a 15 blade and carried out through subcutaneous tissue up to the lipoma. Blunt dissection was then used with a hemostat to dissect the lipoma from the surrounding subcutaneous tissue. The specimen was passed off the table and sent to pathology for further examination. Light pressure was held to maintain hemostasis. Attention was then directed to the right chest where again an incision was made over the palpable lipoma in the transverse fashion. This incision was carried out through subcutaneous tissue up to the lipoma. The lipoma was dissected bluntly from the surrounding subcutaneous tissue and passed off the table. Light pressure was held to maintain hemostasis. Both incisions were then closed using a running subcuticular 4-0 Polysorb suture. Sterile dressings consisting of Steri-Strips, 2 x 2 gauze and Tegaderm were then applied. The patient tolerated the procedure well. He was discharged to home in stable condition.
== END 2025-03-17 13:17 | disposition home or self-care (01) ==
LOC: HO.MS 13:16
PROVIDERS: PCP Internal Medicine; Visit Provider Surgery
PROC: (CPT 11402; principal; 2025-03-17 13:00)
DX: D17.1 Benign lipomatous neoplasm of skin and subcutaneous tissue of trunk (principal)
CPT/HCPCS: 11402 ×2; 88304; J2004

== ENCOUNTER → 2025-03-17 13:16 | Outpatient (BNV) | payer OTHER, SELFPAY | PROVIDERS: PCP Internal Medicine; Visit Provider Surgery | DX: D17.1 Benign lipomatous neoplasm of skin and subcutaneous tissue of trunk (principal) | CPT/HCPCS: 21555 ==

== ENCOUNTER 2025-04-14 08:54 | Outpatient (AMB) | payer OTHER, SELFPAY ==
--- NOTE | 2025-04-14 08:57 | MHC.OFFVIS ---
Vital Signs 04/14/25 09:02 Height 5 ft 5 in Weight 193 lb BMI 32.1 BP 145/77 H Blood Pressure Location Rt brachial Position Sitting Pulse 55 Intake Visit Reasons: s/p Excision lipoma bilateral chest wall Intake Note: Patient here 1mo s/p lipoma excision on lt and rt chest. Patient c/o: no concerns. Reports incisions healing well. Global Implementation Manager Required: No Accompanied by: Self / Same As Patient Allergies gluten Allergy (Mild, Verified 04/14/25 09:02) stomach pains HPI HPI s/p Excision lipoma bilateral chest wall: Details: Patient presents for follow up and a wound check. He underwent excision of bilateral chest lipomas on 03/17/[address] Grande in minor surgery. He tolerated the procedure well. He denies any pain. He has no concerns regarding the excision sites. He does note a mass of his left lateral neck that is bothering him. He has had it for 3-4 years and thinks it has been getting bigger. It irritates him when he moves his left shoulder. He does not want to have to worry about it and would also like it removed. [facility] Medical History Multiple lipomas Physical exam Left wrist pain Dry throat Injury of volar plate of metacarpophalangeal (MCP) joint of thumb Hyperextension injury of thumb Pain of left thumb Thickened small bowel Left elbow pain Left hand pain Lumbar pain Neck pain Left shoulder pain Preprocedural examination Abdominal pain Weak urinary stream Dysphagia Weight loss Clavicle enlargement Urinary retention Tremors of nervous system Cramps, extremity Family history of colon cancer Physical exam Left ankle sprain Lipoma of left shoulder Myofascial muscle pain Trapezius muscle strain Polyarthralgia Mass in neck Right shoulder pain Left shoulder pain Pain of left clavicle Bilateral ankle pain Thoracic spine pain NSAID long-term use Bright red rectal bleeding LUQ abdominal tenderness Blood in stool Moderate anxiety Screen for STD (sexually transmitted disease) Lipoma of arm Left ankle pain Diaphragmatic hernia GERD (gastroesophageal reflux disease) Anxiety Polyarthralgia Tremor Dysphagia History of substance abuse Moderate depressive disorder Back pain Surgical History Status post repair of paraesophageal diaphragmatic hernia Hx of colonoscopy History of left inguinal hernia repair (02/03/19) History of nasal septoplasty History of excision of mass History of appendectomy History of open reduction and internal fixation (ORIF) procedure Family History Mother No problems noted. Father Prostate cancer Diverticula of colon Paternal Grandmother Pancreatic cancer Maternal Grandmother Breast cancer Son Autism Son No problems noted. Daughter No problems noted. 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 Current occupational exposures/hazards: No Cognitive needs: No Hearing needs: No Vision needs: No Review of Systems Const All systems reviewed & are unremarkable except as noted in HPI and below Physical Exam Vital Signs: Last Vital Signs Pulse 55 04/14/25 09:02 BP 145/77 H 04/14/25 09:02 BMI result Body Mass Index 32.1 Const General: comfortable, no acute distress and alert Neck Other: left medial supraclavicular region just superior to sternoclavicular joint- large 4cm round, soft, mobile mass, nontender, no overlying skin changes- appears to sit anterior to SCM and medial to external jugular Chest Other: b/l lateral chest wall excision sites overall well healed, no surrounding erythema or edema excision site on right- lateral aspect of incision with small separation and and small amount of suture visible- this was sharply excised at the skin without any further visible stitch Resp Effort & Inspection: normal respiratory effort Results Reviewed Results Reviewed: A. Soft tissue, left chest, excision: Angiolipoma. B. Soft tissue, right chest, excision: Mature lobular adipose tissue consistent with lipoma Assessment & Plan Assessment & Plan (1) Lipoma of anterior chest wall: Code(s): D17.1 - Benign lipomatous neoplasm of skin and subcutaneous tissue of trunk Category: Medical (2) Lipoma of neck: Code(s): D17.0 - Benign lipomatous neoplasm of skin and subcutaneous tissue of head, face and neck Category: Medical Plan He is s/p excision of bilateral chest lipomas on 03/17/25. Excision sites are hearing well without any evidence of infection. He was spitting a stitch on right excision site which was removed uneventfully. He c/o palpable mass at sternoclavicular joint on left which does appear consistent with lipoma however due to anatomy of the area will obtain US. He would like to proceed with excision of this and due to size and location it was recommended to proceed in the OR with anesthesia. This can be scheduled through [facility] at his convenience following the ultrasound. Coding Level of Care Code Est Pt Level 3 (39032) Diagnoses Lipoma of anterior chest wall D17.1 Lipoma of neck D17.0
[2025-04-14 09:02] VITALS: BP 145/77; PULSE 55; BMI 32.1
--- OUTSIDE RECORDS SUMMARY | 2025-04-14 09:12 | XMS_ITS | Clinical Summary ---
Author Organization [facility] Address [address] [place] [address] Care Team Providers Care Noxious Weeds And Pest Inspector Name Role Phone Vickie Herrmann DMD Primary Care Provider [phone] Source Comments PLEASE NOTE, if this patient [...] 3-dose series) 2000 Hypertension Screening (#1) 08/08/2023 [id number] (1 - season) 2024 Alcohol and Drug Screen 09/21/2024 Depression Annual Screen 09/21/2024 Imm-Influenza (#1) 2025 Tobacco Screening 08/26/2025 08/26/2024 Dental BW [...] Insurance HEALTH SAFETY NET DENTAL Care Teams Noxious Weeds And Pest Inspector Relationship Specialty Start Date End Date Vickie Herrmann DMD [address] [place] [address] PCP - General 11/30/20
--- OUTSIDE RECORDS SUMMARY | 2025-04-14 09:12 | XMS_ITS | Clinical Summary ---
Author Organization [facility] Address [address] [place] [address] Phone Care Team Providers Care Requirements Manager Name Role Phone Lavonne Terry MD Primary Care Provider [phone] Allergies No known active allergies Medications cyclobenzaprine [...] 80 08/28/2024 10:20 AM EST Temperature 36.8 C (98.2 F) 08/28/2024 10:20 AM EST Respiratory Rate 16 08/28/2024 10:20 AM EST [...] series) 2000 Cholesterol Screening (Lipid Panel) 08/24/2022 HIV Screening 08/24/2022 Hepatitis C Screening 08/24/2022 Social Influencers of Health Screening 08/24/2022 COVID-19 Vaccine (1 - 2023-2 5 season) 2024 Depression Screening 09/21/2024 Influenza Vaccine (#1) 2025 HIB Vaccines Aged Out No longer [...] 5 Years) and At-Risk Patients (6 to 49 Years) Aged Out No longer eligible b ased on patient's age to complete this topic RSV Immunization Patients Un jeannette 20 months Aged Out No longer eligible b ased on patient's age to complete this topic Varicella Vaccines Aged Out No longer eligible based on patient's age to complete this topic Insurance PLAN Care Teams Requirements Manager Relationship Specialty Start Date End Date Lavonne Terry MD [address] [place] [address] , [address] [facility] D/B/A: [facility] [place] PCP - General Internal Medicine 08/28/24
== END 2025-04-14 09:12 | disposition home or self-care (01) ==
LOC: HO.HGS 08:55
PROVIDERS: PCP Internal Medicine; Visit Provider Physician Assistant Surgical
DX: D17.1 Benign lipomatous neoplasm of skin and subcutaneous tissue of trunk (principal); D17.0 Benign lipomatous neoplasm of skin and subcutaneous tissue of head, face and neck
CPT/HCPCS: 99024

== ENCOUNTER → 2025-04-14 08:54 | Outpatient (BNVA) | payer OTHER, SELFPAY | PROVIDERS: PCP Internal Medicine; Visit Provider Physician Assistant Surgical | DX: D17.1 Benign lipomatous neoplasm of skin and subcutaneous tissue of trunk (principal); D17.0 Benign lipomatous neoplasm of skin and subcutaneous tissue of head, face and neck | CPT/HCPCS: 99212 ==

== ENCOUNTER 2025-04-21 08:17 | Outpatient (AMB) | payer OTHER, SELFPAY ==
--- NOTE | 2025-04-21 08:28 | A.OFFVIS_ITS ---
VS Expanded 04/21/25 08:39 BP 121/65 Blood Pressure Location Rt brachial Blood Pressure Position Sitting Pulse 63 Pulse Source Pulse Oximeter Temp 96.9 F Temperature Source Temporal Artery Scan Pulse Oximetry 95 Oxygen Delivery Method Room Air Height 5 ft 5 in Weight 196 lb 6.4 oz BMI 32.7 Body Fat % 24.8 Body Fat Mass 48.8 Fat Free Mass 147.4 Visceral Fat Rating 12.0 Body Water % 55.3 Body Water Mass 108.4 Muscle Mass/Score 140.2 Basal Metabolic Rate/Score 1,961 Intake Visit Reasons: OV PO Diaphragmatic Hernia Repair 01/10/25 Sack Department Supervisor Required: Yes Sack Department Supervisor Services: Sack Department Supervisor Present Sack Department Supervisor Name: #[id number] Allergies gluten Allergy (Mild, Verified 04/21/25 08:30) stomach pains Medication List - Last Reconciled 04/21/25 by LISET Major docusate sodium (Colace) 100 mg PO DAILY HPI Comments Details: Patient is a pleasant 44-year-old male who returns to the office today in [facility] He is approximately 3 months post hiatal hernia repair performed on 01/10/2025. Overall he is doing fairly well. Is 196.4 lb with a BMI of 32.7. C/O some mild constipation. Not following any meal plan. He stopped following recommended plans about 2 months ago. Denies any problems with reflux symptoms. Does not wish to follow a specific meal plan at this time. meal plan: regular diet BF: mongolian muffin, sandwich L: rice and beans, chicken D: same as dinner not measuring Drinking 64 oz water daily exercise plan: none PFSH Medical History Multiple lipomas Physical exam Left wrist pain Dry throat Injury of volar plate of metacarpophalangeal (MCP) joint of thumb Hyperextension injury of thumb Pain of left thumb Thickened small bowel Left elbow pain Left hand pain Lumbar pain Neck pain Left shoulder pain Preprocedural examination Abdominal pain Weak urinary stream Dysphagia Weight loss Clavicle enlargement Urinary retention Tremors of nervous system Cramps, extremity Family history of colon cancer Physical exam Left ankle sprain Lipoma of left shoulder Myofascial muscle pain Trapezius muscle strain Polyarthralgia Mass in neck Right shoulder pain Left shoulder pain Pain of left clavicle Bilateral ankle pain Thoracic spine pain NSAID long-term use Bright red rectal bleeding LUQ abdominal tenderness Blood in stool Moderate anxiety Screen for STD (sexually transmitted disease) Lipoma of arm Left ankle pain Diaphragmatic hernia GERD (gastroesophageal reflux disease) Anxiety Polyarthralgia Tremor Dysphagia History of substance abuse Moderate depressive disorder Back pain Surgical History Status post repair of paraesophageal diaphragmatic hernia Hx of colonoscopy History of left inguinal hernia repair (02/03/19) History of nasal septoplasty History of excision of mass History of appendectomy History of open reduction and internal fixation (ORIF) procedure Family History Mother No problems noted. Father Prostate cancer Diverticula of colon Paternal Grandmother Pancreatic cancer Maternal Grandmother Breast cancer Son Autism Son No problems noted. Daughter No problems noted. 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 Current occupational exposures/hazards: No Cognitive needs: No Hearing needs: No Vision needs: No Physical Exam Const General: healthy appearing and no acute distress Resp Effort & Inspection: normal respiratory effort Auscultation: clear to auscultation bilaterally Cardio Rate: regular rate Rhythm: regular rhythm GI Auscultation: normal bowel sounds Extrem General: Yes normal to inspection Assessment & Plan Assessment & Plan (1) Status post repair of paraesophageal diaphragmatic hernia: Code(s): Z98.890 - Other specified postprocedural states; Z87.19 - Personal history of other diseases of the digestive system Category: Surgical Plan: Patient is a pleasant 44-year-old male who is 3 months post paraesophageal hernia repair. He is eating what he wishes, no complaints of reflux. Does not wish to pursue weight loss or a specified meal plan. He was having some constipation and I discussed adding a fiber gummy into his diet. Additionally, he does not eat much vegetables, discussed fiber that is in salad and vegetables. He also is not exercising regularly, discussed how this is important and will impact his health. He may return to the office at any time in the future. All questions were answered to his satisfaction.
[2025-04-21 08:39] VITALS: BP 121/65; PULSE 63; TEMP 36.1; O2SAT 95; BMI 32.7
== END 2025-04-21 09:37 | disposition home or self-care (01) ==
LOC: HO.HBS 08:18
PROVIDERS: PCP Internal Medicine; Visit Provider Physician Assistant Surgical
DX: E66.9 Obesity, unspecified (principal); Z68.32 Body mass index [BMI] 32.0-32.9, adult; Z98.890 Other specified postprocedural states; Z87.19 Personal history of other diseases of the digestive system
CPT/HCPCS: 99213

== ENCOUNTER → 2025-04-21 08:17 | Outpatient (BNVA) | payer OTHER, SELFPAY | PROVIDERS: PCP Internal Medicine; Visit Provider Physician Assistant Surgical | DX: Z98.890 Other specified postprocedural states (principal); Z87.19 Personal history of other diseases of the digestive system; R19.7 Diarrhea, unspecified | CPT/HCPCS: 99212 ==

== ENCOUNTER 2025-07-10 16:47 | Outpatient (AMB) | payer OTHER, SELFPAY ==
[2025-07-10 16:57] VITALS: BP 110/62; PULSE 60; RESP 18; O2SAT 97; BMI 31.6
--- NOTE | 2025-07-10 16:57 | MHC.PC.OV ---
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 Accompanied by: Self / Same As Patient Allergies gluten Allergy (Mild, Verified 07/10/25 17:26) stomach pains Medication List - Last Reconciled 07/10/25 by Lavonne Terry MD docusate sodium (Colace) 100 mg PO DAILY Tobacco use date assessed: 07/10/25 Dental Screening Dental Screen Date: 07/10/25 Did you have a dental visit in the last 12 months?: Yes Did you have a dental problem in the last 6 months where you did not have access to dental care?: No Was dental information given to patient?: Patient has dentist HPI HPI Comments History of Present Illness Details The patient is a 44-year-old male presenting with constipation, hernia, and lipomas. The patient reports a history of constipation, which he previously managed with medication but no longer requires as symptoms have improved. He describes the constipation as previously severe enough to require intervention, but now feels better without medication. Regarding the hernia, the patient indicates improvement in symptoms, noting better digestion and the ability to manage food intake more effectively. He mentions a surgical consultation with Dr. Khan for an internal repair, which has not yet been performed. The patient also has multiple lipomas, which he plans to have surgically removed, particularly those that are larger and cause discomfort or deformity. He is considering removal of the lipomas that are bothersome, especially those on his arm. [facility] Medical History Multiple lipomas Physical exam Left wrist pain Dry throat Injury of volar plate of metacarpophalangeal (MCP) joint of thumb Hyperextension injury of thumb Pain of left thumb Thickened small bowel Left elbow pain Left hand pain Lumbar pain Neck pain Left shoulder pain Preprocedural examination Abdominal pain Weak urinary stream Dysphagia Weight loss Clavicle enlargement Urinary retention Tremors of nervous system Cramps, extremity Family history of colon cancer Physical exam Left ankle sprain Lipoma of left shoulder Myofascial muscle pain Trapezius muscle strain Polyarthralgia Mass in neck Right shoulder pain Left shoulder pain Pain of left clavicle Bilateral ankle pain Thoracic spine pain NSAID long-term use Bright red rectal bleeding LUQ abdominal tenderness Blood in stool Moderate anxiety Screen for STD (sexually transmitted disease) Lipoma of arm Left ankle pain Diaphragmatic hernia GERD (gastroesophageal reflux disease) Anxiety Polyarthralgia Tremor Dysphagia History of substance abuse Moderate depressive disorder Back pain Surgical History Status post repair of paraesophageal diaphragmatic hernia Hx of colonoscopy History of left inguinal hernia repair (02/03/19) History of nasal septoplasty History of excision of mass History of appendectomy History of open reduction and internal fixation (ORIF) procedure Family History Mother No problems noted. Father Prostate cancer Diverticula of colon Paternal Grandmother Pancreatic cancer Maternal Grandmother Breast cancer Son Autism Son No problems noted. Daughter No problems noted. 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 Current occupational exposures/hazards: No Cognitive needs: No Hearing needs: No Vision needs: No Questionnaire Thrive Questionnaire Date Thrive assessed: 01/05/25 I am a: Patient What is your living situation today?: I have a place to live, but I am worried about losing it in the future Within the past 12 months, did the food you bought not last and you didn't have the money to get more?: Sometimes True Within the past 12 months, did you worry whether your food would run out before you got money to buy more?: Sometimes True Do you have trouble paying for medicines?: Yes Do you have trouble getting transportation to medical appointments?: No Do you have trouble paying your heating and electricity bill?: No Do you have trouble taking care of your child, family member or friend?: No Do you have trouble with day-to-day activities such as bathing, preparing meals, shopping, managing finances, etc.?: No Are you currently unemployed and looking for a job?: No Are you interested in more education?: Yes Please select the resources that you would like help with: Housing/Usp Currently or been in a relationship where the following occur: I choose not to answer THRIVE Score: 3 KEELY-7 AMB Questionnaire KEELY-7 Date KEELY - 7 assessed: 01/05/25 Source: Developed by Drs. Prnice Cornell, Katie May, Valdo Barrow and colleagues, with an educational [place] from [employer]. Review of Systems Const All systems reviewed & are unremarkable except as noted in HPI and below Card Denies chest pain at rest, Denies chest pain with activity, Denies edema, Denies irregular heart rhythm, Denies claudication, Denies dyspnea, Denies dyspnea on exertion, Denies orthopnea, Denies paroxysmal nocturnal dyspnea and Denies slow heart rate Resp Denies cough, Denies dyspnea and Denies dyspnea on exertion GI Denies abdominal pain, Denies change in bowel habits, Denies excessive flatus, Denies nausea and Denies vomiting Physical exam (Primary Care) Vital Signs: Last Vital Signs Pulse 60 07/10/25 16:57 Resp 18 07/10/25 16:57 BP 110/62 07/10/25 16:57 Pulse Ox 97 07/10/25 16:57 Oxygen Delivery Method Room Air 07/10/25 16:57 BMI result Body Mass Index 31.6 BMI Assessment/Plan discussion: High BMI High, discussed plan: lifestyle, weight reduction, dietary and physical activity Tobacco/Smoking Status: Tobacco use Status Tobacco use date assessed 07/10/25 07/10/25 17:02 Patient Tobacco Use Status Former Tobacco user 07/10/25 17:02 Tobacco use type Cigarette 07/10/25 17:02 e-Cigarette/Vaping Use Never Used 07/10/25 17:02 Thrive Assessment: Date of Thrive Assessment Date Thrive assessed 01/05/25 07/10/25 17:02 Currently or been in a relationship where the following occur: I choose not to answer Resp Effort & Inspection: normal respiratory effort Auscultation: clear to auscultation bilaterally Cardio Jugular venous distension: no JVD Rate: regular rate Rhythm: regular rhythm Heart sounds: S1 normal heart sound present and S2 normal heart sound present Extrem General: Yes full ROM Coding Level of Care Code Est Pt Level 3 (14542) Diagnoses Constipation K59.00 Diaphragmatic hernia without obstruction and without gangrene K44.9 Obstruction and gangrene presence: without obstruction or gangrene GERD (gastroesophageal reflux disease) K21.9 Time Spent (min) 19 Assessment & Plan Assessment & Plan (1) Constipation: Code(s): K59.00 - Constipation, unspecified Category: Medical (2) Diaphragmatic hernia: Code(s): K44.9 - Diaphragmatic hernia without obstruction or gangrene Category: Medical Qualifiers: Obstruction and gangrene presence: without obstruction or gangrene Qualified Code(s): K44.9 - Diaphragmatic hernia without obstruction or gangrene (3) GERD (gastroesophageal reflux disease): Code(s): K21.9 - Gastro-esophageal reflux disease without esophagitis Category: Medical Plan Plan 1. Constipation The patient reports improvement in constipation symptoms and no longer requires medication. 2. Hernia The patient has consulted with Dr. Khan for a potential surgical repair of the hernia, which has not yet been scheduled. 3. Lipomas The patient plans to have larger, bothersome lipomas surgically removed, particularly those on the arm.
== END 2025-07-10 17:34 | disposition home or self-care (01) ==
LOC: HO.HMCH 16:48
PROVIDERS: PCP Internal Medicine; Visit Provider Internal Medicine
DX: K59.00 Constipation, unspecified (principal); K44.9 Diaphragmatic hernia without obstruction or gangrene; K21.9 Gastro-esophageal reflux disease without esophagitis

== ENCOUNTER → 2025-07-10 16:47 | Outpatient (BNVA) | payer OTHER, SELFPAY | PROVIDERS: PCP Internal Medicine; Visit Provider Internal Medicine | DX: K59.00 Constipation, unspecified (principal); K44.9 Diaphragmatic hernia without obstruction or gangrene; K21.9 Gastro-esophageal reflux disease without esophagitis; D17.20 Benign lipomatous neoplasm of skin and subcutaneous tissue of unspecified limb | CPT/HCPCS: 99212 ==